=== PATIENT | male | born 1960 | race Caucasian/White ===

== ENCOUNTER 2017-08-11 14:15 | Inpatient (IN) | payer MEDICARE, BC ==
[~2017-08-11] VITALS: Ht 185.4 cm; Wt 87.8 kg
--- NOTE | ~2017-08-11 | OP ---
PATIENT NAME: BRITNEY LEMUS MEDICAL RECORD: [id number] :58 LOCATION:D.M2 D.2109 ADMISSION DATE:08/11/17 SURGEON: JAMEL KHAN MD DATE OF OPERATION: 08/12/2017 REFERRING PHYSICIANS: 1. Andrea Pitt MD 2. 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 OPERATION PERFORMED: Removal of infected vascular grafts from the right arm and ultrasound-guided cannulation of the left internal jugular/brachial cephalic vein with venography followed by ultrasound-guided access of the right internal jugular vein with venography and then insertion of a HemoSplit 19 cm long HemoSplit tunneled dialysis catheter, also removal of a tunneled dialysis catheter from the left femoral vein. SURGEON: Jamel Khan MD ANESTHESIA: General per PROPOSAL MANAGER and LMA. PREOPERATIVE NOTE: Mr. Lemus is a 57-year-old white male patient who has been on dialysis, peritoneal and hemo for about 15 or 16 years. He has had numerous infectious complications of his peritoneal dialysis with infected catheters and has had numerous AV accesses which thrombosed and which were infected both fistulas and AV grafts. He has even had osteomyelitis in his spine, which I think was with a gram-negative organism. He has had MRSA, but his infections have not all been staph. He was recently hospitalized at [facility] with septic state and had a femoral dialysis catheter inserted on the right. He has a history of deep vein thrombosis and even has an IVC filter on the right by the way and he had a catheter placed in his left groin and his most recent AV graft in the right arm was thrombosed. I saw him in my office yesterday and examined him, and looked at the graft in the right arm. There was a small area of "scab," which I easily wiped away with a culturette and then inserted the culturette easily into the body of the graft for a distance of 6 or 8 cm both distally and proximally. Purulent material was present. There was no bleeding, thanks hekell. The culture was sent to the hospital along with the patient whom I had admitted and I planned to bring him back to the operating room here today to remove the infected segment of his AV graft and to hopefully remove his femoral catheter and place a catheter in his upper torso. The patient is chronically on heparin, but that was discontinued on admission OPERATIVE REPORT [id number] BRITNEY LEMUS and he was started on low molecular weight heparin. At some point very soon, need to go back on his Coumadin anticoagulation. My plan is to hopefully get secure access for dialysis via an upper tunneled dialysis catheter and treat his graft infection and when thought to be clear of infection in probably 6 to 8 weeks, bring him back again to the operating room to implant an HeRO graft. DESCRIPTION OF PROCEDURE: With patient under anesthesia, he was prepped and draped in a sterile manner. I used ultrasound to image the left internal jugular vein, which appeared to be thrombosed, but deep to it and medial, there was a very large vein, which may be the internal jugular vein proximally or may actually have been the brachiocephalic vein. I was able to access it with micropuncture technique and injected contrast, which demonstrated patency of that vein all the way to the right atrium, but there were stenoses and defects which I thought would make it difficult if not dangerous to insert a HeRO outflow device along that course. I then went to the right side of the neck and with ultrasound identified the proximal internal jugular vein, which was small and somewhat sclerotic, but still patent at that level just above the clavicular head. I was able to cannulate it with a needle and guidewire under ultrasound guidance and advanced the guidewire fairly easily into the superior vena cava. A micropuncture catheter was inserted over the wire and subsequent to that a 7-German introducer was inserted. Contrast injection reveals a stenotic, but patent right brachiocephalic vein and a more highly stenotic, but patent internal jugular vein. The superior vena cava seems to be wide open without any stenoses or abnormalities. I then chose a 19 cm HemoSplit and went on to insert dilators over guidewire through the cervical incision there on the right at the base of the neck and lastly a peel-away introducer. I brought the new HemoSplit through an infraclavicular entry stab wound in the subcutaneous tunnel and inserted it through the peel-away introducer as it was removed under fluoroscopy. The catheter tips were positioned appropriately in the right atrium. Both lumens of the catheter were accessed and aspirated, free return of blood confirmed. They were then flushed with saline and then heparin-locked, clamped and capped. The catheter was sutured to the skin near the entry site with 2-0 Prolene. The cervical incision was closed with interrupted inverted 3-0 Vicryl subcuticular sutures and Dermabond glue. It was dressed with Maxorb Ag, Tegaderm and Cavilon skin prep. A chlorhexidine Biopatch was applied to the catheter at its entry site and further sterile dressings applied there. The left groin was then exposed and I removed the sutures from the HemoSplit catheter. I then found that the Dacron felt cuff was not adherent in the subcutaneous tunnel and I removed it by traction and then held pressure for prolonged period of time to obtain hemostasis. Subsequently, a sterile dressing was applied there. The right arm was then finally exposed and I excised the skin over the area of graft perforation and then extended the incision proximally and distally over the graft up almost to the deltopectoral groove and distally almost to the arterial anastomosis. The infected graft was dissected from the surrounding structures with electrocautery and it was transected proximal and distal ends without exposing or removing the arterial anastomosis or the proximal venous anastomosis. The wound was irrigated with Ancef/gentamicin solution and infiltrated with 0.25% Marcaine and lidocaine with epinephrine. Hemostasis was obtained with suture ligatures of subcutaneous collateral veins with 3-0 Vicryl and additional extensive use of electrocautery. I applied a wound VAC dressing with black foam and set the wound VAC device for continuous negative 125 suction. I have ordered that it be changed 3 times a week and I have asked for OPERATIVE REPORT [id number] BRITNEY LEMUS wound care consultation from our wound nurse specialist. PLAN: Antibiotic treatment as per Dr. Schilling. I think the patient should stay in the hospital, certainly over the weekend and probably through the first portion of next week. Hopefully, he will be able to go home next week. He does home dialysis, there is no reason he could not do home dialysis with his new catheter. After adequate antibiotic treatment when we think that he was free of colonization with pathogens such as MRSA, he can be returned to the operating room for a HeRO graft implantation I believe that I will likely prefer to place a HeRO graft in the left upper extremity and simply bring the venous outflow catheter around anteriorly to place the HeRO outflow device via the right internal jugular where I have today placed the tunneled catheter. Blood loss during the procedure was about 50 cc and was unreplaced. All sponges, instruments and needles were accounted for. No drain was used. There was no surgical specimen, but I did send the tip of the femoral catheter for culture and I swabbed the excised graft intraluminal contents for culture and sensitivity and stat Gram stain and also sent several 3 inch segments of the PTFE graft for culture. TRANSINT:[id number] Voice Confirmation ID: [id number] DOCUMENT ID: [id number] JAMEL KHAN MD at 1134 CC: JONES PENNINGTON MD, ANDREA PITT MD and Janette [id number] DICTATION DATE: 08/12/171812 SNUFF CONTAINER INSPECTOR: 08/13/17 0005 ADM IN [facility] [address] [place] [address]
[~2017-08-11 14:15] MED LIST: COUMADIN3 MG PO; COUMADIN5 MG PO; EPOGEN10000 U/ML SC; FERROUS SULFAT325 MG PO; HYDRALAZINE HCL25 MG PO; HYDROCODONE-APA1 TAB PO; LOTRISONE CREAM45 GM TOPICAL; NEPHRO-VITE RX1 TAB PO; NEURONTIN 300300 MG PO; PACERONE200 MG PO; PRINIVIL20 MG PO; PROTONIX20 MG PO; RENVELA0.8 GM PO; ROCALTROL0.25 MCG PO; SYNTHROID150 MCG PO; TUMS500 MG PO; VANCOMYCIN 1 GM/1 G1 IV
[2017-08-11] MEDS ORDERED: NORVASC5 MG PO (14:42)
[2017-08-11] MEDS ORDERED: NEURONTIN 300300 MG PO (14:42)
[2017-08-11] MEDS ORDERED: ROBAXIN-750750 MG PO (14:43)
[2017-08-11] MEDS ORDERED: RENVELA800 MG PO (14:44)
[2017-08-11] MEDS ORDERED: RESTASIS EYE DR30 EA EACH EYE (14:44)
[2017-08-11 14:45] VITALS: BP 145/74
[2017-08-11 15:20] LABS: BASOPHILS 0.6 % (0-2); EOSINOPHILS 11.3 % (0-7); HEMATOCRIT 30.8 % (42.0-54.0); HEMOGLOBIN 9.9 g/dL (13.5-17.5); IMMATURE GRANULOCYTES 0.4 % (0-5); LYMPHOCYTES 24.6 % (15-50); MCHC 32.1 g/dL (31.0-37.0); MCV 102.7 fL (80.0-100.0); NEUTROPHILS 54.1 % (40-80); PLATELET COUNT 163 10x3/uL (130-400); RDW 13.7 % (11.5-14.5); WBC 5.2 10x3/uL (4.8-10.8)
[2017-08-11 15:39] LABS: APTT 37.1 SECONDS (22.8-39.4); INR 1.24 (0.85-1.17); PROTIME 15.2 SECONDS (11.6-15.0)
[2017-08-11 15:41] LABS: ANION GAP 20.9 mmol/L (8-16); CARBON DIOXIDE 23.6 mmol/L (21.0-32.0); CREATININE - SERUM 12.3 mg/dL (0.6-1.3); POTASSIUM - SERUM 4.5 mmol/L (3.5-5.1)
[2017-08-11 21:37] VITALS: BP 153/83
[2017-08-12 01:49] VITALS: BP 135/55
[2017-08-12 05:32] LABS: BASOPHILS 0.6 % (0-2); EOSINOPHILS 14.2 % (0-7); HEMATOCRIT 28.8 % (42.0-54.0); HEMOGLOBIN 9.2 g/dL (13.5-17.5); IMMATURE GRANULOCYTES 0.4 % (0-5); LYMPHOCYTES 24.5 % (15-50); MCH 32.5 pg (26.0-34.0); MCHC 31.9 g/dL (31.0-37.0); MCV 101.8 fL (80.0-100.0); MEAN PLATELET VOLUME 10.5 fL (7.4-10.4); MONOCYTES 12.3 % (2-11); PLATELET COUNT 177 10x3/uL (130-400); RBC 2.83 10x6/uL (4.20-6.10); RDW 13.5 % (11.5-14.5); WBC 4.7 10x3/uL (4.8-10.8)
[2017-08-12 05:36] VITALS: BP 163/70
[2017-08-12 06:00] LABS: ALBUMIN 2.7 g/dL (3.4-5.0); ANION GAP 14.9 mmol/L (8-16); BILIRUBIN - TOTAL 0.4 mg/dL (0.2-1.3); CALCIUM 8.6 mg/dL (8.5-10.1); CARBON DIOXIDE 27.6 mmol/L (21.0-32.0); CREATININE - SERUM 13.8 mg/dL (0.6-1.3); PROTEIN - SERUM 6.2 g/dL (6.4-8.2)
[2017-08-12 06:16] LABS: POTASSIUM - SERUM 5.5 mmol/L (3.5-5.1)
[2017-08-12 08:23] VITALS: BP 157/67
[2017-08-12 08:44] LABS: APTT 37.8 SECONDS (22.8-39.4); INR 1.29 (0.85-1.17); PROTIME 15.6 SECONDS (11.6-15.0)
[2017-08-12 10:28] VITALS: Ht 185.4 cm; Wt 87.8 kg
[2017-08-12 12:14] VITALS: BP 165/74
[2017-08-13 05:01] LABS: BASOPHILS 0.5 % (0-2); EOSINOPHILS 10.6 % (0-7); HEMATOCRIT 26.9 % (42.0-54.0); HEMOGLOBIN 8.6 g/dL (13.5-17.5); IMMATURE GRANULOCYTES 0.2 % (0-5); LYMPHOCYTES 10.4 % (15-50); MCH 32.8 pg (26.0-34.0); MCV 102.7 fL (80.0-100.0); MEAN PLATELET VOLUME 10.6 fL (7.4-10.4); MONOCYTES 10.2 % (2-11); NEUTROPHILS 68.1 % (40-80); PLATELET COUNT 167 10x3/uL (130-400); RBC 2.62 10x6/uL (4.20-6.10); RDW 13.8 % (11.5-14.5); WBC 5.7 10x3/uL (4.8-10.8)
[2017-08-13 05:03] LABS: ALBUMIN 2.7 g/dL (3.4-5.0); ANION GAP 13.4 mmol/L (8-16); BILIRUBIN - TOTAL 0.53 mg/dL (0.2-1.3); CALCIUM 8.6 mg/dL (8.5-10.1); CARBON DIOXIDE 28.5 mmol/L (21.0-32.0); PHOSPHOROUS 5.9 mg/dL (2.5-4.9); POTASSIUM - SERUM 4.9 mmol/L (3.5-5.1); PROTEIN - SERUM 5.9 g/dL (6.4-8.2)
[2017-08-13 05:04] LABS: CREATININE - SERUM 9.4 mg/dL (0.6-1.3)
[2017-08-13 05:38] LABS: INR 0.77 (0.85-1.17); PROTIME 10.4 SECONDS (11.6-15.0)
[2017-08-13 06:36] VITALS: BP 167/69
[2017-08-13 09:09] VITALS: BP 147/70
[2017-08-13 12:15] VITALS: BP 154/63
[2017-08-13 15:58] VITALS: BP 157/64
[2017-08-13 20:26] VITALS: BP 142/67
[2017-08-14 03:34] VITALS: BP 157/58
[2017-08-14 05:27] LABS: BASOPHILS 0.8 % (0-2); EOSINOPHILS 17.4 % (0-7); HEMATOCRIT 23.8 % (42.0-54.0); HEMOGLOBIN 7.6 g/dL (13.5-17.5); LYMPHOCYTES 20.8 % (15-50); MCH 32.2 pg (26.0-34.0); MCHC 31.9 g/dL (31.0-37.0); MCV 100.8 fL (80.0-100.0); MEAN PLATELET VOLUME 9.9 fL (7.4-10.4); MONOCYTES 12.8 % (2-11); NEUTROPHILS 48.2 % (40-80); PLATELET COUNT 139 10x3/uL (130-400); RBC 2.36 10x6/uL (4.20-6.10); RDW 13.6 % (11.5-14.5)
[2017-08-14 05:29] LABS: WBC 3.8 10x3/uL (4.8-10.8)
[2017-08-14 05:57] LABS: ALBUMIN 2.5 g/dL (3.4-5.0); ANION GAP 13.3 mmol/L (8-16); BILIRUBIN - TOTAL 0.73 mg/dL (0.2-1.3); CALCIUM 8.7 mg/dL (8.5-10.1); PHOSPHOROUS 6.6 mg/dL (2.5-4.9); POTASSIUM - SERUM 4.3 mmol/L (3.5-5.1); PROTEIN - SERUM 5.8 g/dL (6.4-8.2); VANCOMYCIN - TROUGH 21.4 ug/mL (10.0-20.0)
[2017-08-14 06:00] LABS: CREATININE - SERUM 12.2 mg/dL (0.6-1.3)
[2017-08-14 07:00] VITALS: BP 155/69
[2017-08-14 12:48] VITALS: BP 130/79
[2017-08-14 13:59] LABS: BASOPHILS 0.7 % (0-2); EOSINOPHILS 18.1 % (0-7); HEMATOCRIT 24.4 % (42.0-54.0); HEMOGLOBIN 7.8 g/dL (13.5-17.5); IMMATURE GRANULOCYTES 0.2 % (0-5); LYMPHOCYTES 19.1 % (15-50); MCH 32.2 pg (26.0-34.0); MCV 100.8 fL (80.0-100.0); MEAN PLATELET VOLUME 9.8 fL (7.4-10.4); NEUTROPHILS 50.9 % (40-80); PLATELET COUNT 150 10x3/uL (130-400); RBC 2.42 10x6/uL (4.20-6.10); RDW 13.5 % (11.5-14.5); WBC 4.1 10x3/uL (4.8-10.8)
[2017-08-14 16:00] VITALS: BP 171/76
[2017-08-14 21:41] VITALS: BP 157/42
[2017-08-15 01:10] VITALS: BP 157/67
[2017-08-15 04:58] VITALS: BP 180/62
[2017-08-15 08:14] VITALS: BP 173/73
[2017-08-15 16:13] VITALS: BP 148/65
[2017-08-15 17:33] LABS: BASOPHILS 0.5 % (0-2); EOSINOPHILS 15.2 % (0-7); HEMOGLOBIN 7.8 g/dL (13.5-17.5); LYMPHOCYTES 18.5 % (15-50); MCH 32.8 pg (26.0-34.0); MCHC 32.5 g/dL (31.0-37.0); MCV 100.8 fL (80.0-100.0); MEAN PLATELET VOLUME 9.7 fL (7.4-10.4); MONOCYTES 11.4 % (2-11); NEUTROPHILS 54.4 % (40-80); PLATELET COUNT 145 10x3/uL (130-400); RBC 2.38 10x6/uL (4.20-6.10); RDW 13.4 % (11.5-14.5)
[2017-08-15 17:51] LABS: ALBUMIN 2.6 g/dL (3.4-5.0); ANION GAP 13.7 mmol/L (8-16); BILIRUBIN - TOTAL 0.5 mg/dL (0.2-1.3); CALCIUM 8.4 mg/dL (8.5-10.1); CARBON DIOXIDE 27.1 mmol/L (21.0-32.0); INR 1.52 (0.85-1.17); POTASSIUM - SERUM 3.8 mmol/L (3.5-5.1); PROTEIN - SERUM 6.1 g/dL (6.4-8.2); PROTIME 17.8 SECONDS (11.6-15.0); VANCOMYCIN - TROUGH 15.6 ug/mL (10.0-20.0)
[2017-08-15 20:00] VITALS: BP 166/83
[2017-08-16 04:00] VITALS: BP 155/40
[2017-08-16 06:30] LABS: BASOPHILS 0.6 % (0-2); EOSINOPHILS 16.4 % (0-7); IMMATURE GRANULOCYTES 0.6 % (0-5); LYMPHOCYTES 24.2 % (15-50); MCH 31.8 pg (26.0-34.0); MCHC 32.5 g/dL (31.0-37.0); MONOCYTES 14.3 % (2-11); NEUTROPHILS 43.9 % (40-80); PLATELET COUNT 152 10x3/uL (130-400); RDW 15.4 % (11.5-14.5); WBC 3.4 10x3/uL (4.8-10.8)
[2017-08-16 06:40] LABS: HEMATOCRIT 28.9 % (42.0-54.0); HEMOGLOBIN 9.4 g/dL (13.5-17.5); MCV 97.6 fL (80.0-100.0); RBC 2.96 10x6/uL (4.20-6.10)
[2017-08-16 07:01] LABS: ALBUMIN 2.6 g/dL (3.4-5.0); ANION GAP 12.5 mmol/L (8-16); BILIRUBIN - TOTAL 0.5 mg/dL (0.2-1.3); CALCIUM 8.7 mg/dL (8.5-10.1); CARBON DIOXIDE 29.5 mmol/L (21.0-32.0); CREATININE - SERUM 9.5 mg/dL (0.6-1.3); PROTEIN - SERUM 6.1 g/dL (6.4-8.2)
[2017-08-16 09:12] VITALS: BP 128/48
[2017-08-16] MEDS ORDERED: RIFADIN300 MG PO (10:05)
[2017-08-16] MEDS ORDERED: PLAVIX75 MG PO (10:06)
[2017-08-16] MEDS ORDERED: VANCOMYCIN 1 GM/1 G1 IV (10:09)
[2017-08-16] MEDS ORDERED: ELIQUIS2.5 MG PO (10:18)
[2017-08-16 12:10] VITALS: BP 139/74
[2017-08-17 10:20] LABS: ACLA - IGG AB <9 GPL U/mL (0-14); ACLA - IGM AB <9 MPL U/mL (0-12)
[2017-08-18 08:21] LABS: ANTITHROMBIN III ACTIVITY 86 % (75-135)
[2017-08-18 14:28] LABS: PROTEIN S - FREE 53 % (57-157); PROTEIN S - FUNCTIONAL 53 % (63-140); PROTEIN S - TOTAL 84 % (60-150)
[2017-08-19 04:15] LABS: HEXAGONAL PHASE PHOS 9 sec (0-11); LUPUS - INTERPRETATION Comment: (()); LUPUS - THROMBIN TIME 20.3 sec (0.0-23.0); LUPUS - dRVVT 58.8 sec (0.0-47.0); PTT-LA INCUB MIX 54.6 sec (0.0-48.9); PTT-LA MIX 46.1 sec (0.0-48.9)
[2017-08-19 12:16] LABS: PROTEIN C - ANTIGEN 61 % (60-150); PROTEIN C - FUNCTIONAL 63 % (73-180)
== END 2017-08-16 18:55 | disposition home health service (06) | DRG 252 ==
LOC: D.M2 14:15
PROVIDERS: Internal Medicine Nephrology; Student in an Organized Health Care Education/Training Program; Surgery
PROC: 02HV33Z Insertion of Infusion Device into Superior Vena Cava, Percutaneous Approach (ICD-10-PCS; 2017-08-12)
PROC: B548ZZA Ultrasonography of Superior Vena Cava, Guidance (ICD-10-PCS; 2017-08-12)
PROC: B5151ZZ Fluoroscopy of Bilateral Jugular Veins using Low Osmolar Contrast (ICD-10-PCS; 2017-08-12)
PROC: B51N1ZZ Fluoroscopy of Left Upper Extremity Veins using Low Osmolar Contrast (ICD-10-PCS; 2017-08-12)
PROC: B5181ZA Fluoroscopy of Superior Vena Cava using Low Osmolar Contrast, Guidance (ICD-10-PCS; 2017-08-12)
PROC: 5A1D70Z Performance of Urinary Filtration, Intermittent, Less than 6 Hours Per Day (ICD-10-PCS; 2017-08-12)
PROC: 05PY0KZ Removal of Nonautologous Tissue Substitute from Upper Vein, Open Approach (ICD-10-PCS; principal; 2017-08-12 15:00)
PROC: 04P Lower Arteries, Removal (ICD-10-PCS; 2017-08-12 15:00)
PROC: 0JHH3XZ Insertion of Tunneled Vascular Access Device into Left Lower Arm Subcutaneous Tissue and Fascia, Percutaneous Approach (ICD-10-PCS; 2017-08-12 15:00)
DX: T82.7XXA Infection and inflammatory reaction due to other cardiac and vascular devices, implants and grafts, initial encounter (principal); N18.6 End stage renal disease; A41.01 Sepsis due to Methicillin susceptible Staphylococcus aureus; I13.2 Hypertensive heart and chronic kidney disease with heart failure and with stage 5 chronic kidney disease, or end stage renal disease; D68.59 Other primary thrombophilia; I50.9 Heart failure, unspecified; Z99.2 Dependence on renal dialysis; I25.10 Atherosclerotic heart disease of native coronary artery without angina pectoris; E03.9 Hypothyroidism, unspecified; D64.9 Anemia, unspecified; Z87.891 Personal history of nicotine dependence

== ENCOUNTER 2017-10-25 06:28 | Day surgery (SDC) | payer MEDICARE, BC ==
[~2017-10-25] VITALS: Ht 185.4 cm; Wt 88.6 kg
--- NOTE | ~2017-10-25 | OP ---
PATIENT NAME: BRITNEY LEMUS MEDICAL RECORD: [id number] :58 [facility] ADMISSION DATE: SURGEON: JAMEL KHAN MD DATE OF OPERATION: 10/25/2017 REFERRED BY: Néstor Bautista MD PREOPERATIVE DIAGNOSIS: End-stage renal disease, on hemodialysis, with history of multiple prior dialysis access failures due to thrombophilia and due to recurrent staphylococcal infections. POSTOPERATIVE DIAGNOSIS: End-stage renal disease, on hemodialysis, with history of multiple prior dialysis access failures due to thrombophilia and due to recurrent staphylococcal infections. OPERATION PERFORMED TODAY: Implantation of a HeRO AV graft, removal of tunneled dialysis catheter from the right internal jugular vein, and performance of a vena cavogram and balloon angioplasty of strictured right internal jugular and brachiocephalic vein with PTFE portion in the left upper extremity. SURGEON: Jamel Khan MD PREOP NOTE: Mr. Lemus is a very nice 57-year-old white male patient from [place], [place]. He has end-stage renal disease and is doing home dialysis presently with a right IJ tunneled dialysis catheter. He needs long-term access. He has had multiple prior grafts and fistulas, which failed due to thrombophilia and recurrent staphylococcal infections. He is at present found to be free of staphylococcal infection or significant colonization and is brought to the operating room this time to implant a HeRO. With the patient under general anesthesia in supine position, he was prepped and draped in sterile manner. The tunneled dialysis catheter in the right internal jugular vein was removed under fluoroscopy over guidewire. The guidewire was advanced into the inferior vena cava and a wire catheter exchange was done so that an Amplatz wire was placed in the inferior vena cava. A 7-Divehi introducer was placed in the right IJ over that wire. Contrast injection was then performed for superior vena cavogram. This revealed a patent superior vena cava, but a strictured and nearly 100% occluded right internal jugular and brachiocephalic vein. These were then dilated with an 8-mm angioplasty balloon with full effacement with relatively little in the way of pressure with a significant increase in diameter of the vein with repeated contrast injection. Additional dilators were then passed under fluoroscopy over the wire and then a peel-away introducer sheath. The HeRO outflow device was inserted through that and its tip placed in the right atrium and the peel-away sheath removed. The HeRO outflow device was flushed then and aspirated and contrast injection revealed satisfactory positioning. It was then again flushed with dilute heparin and saline solution and clamped. An incision of about an inch in length had been made there at that site in the right neck. I made an incision then at the left deltopectoral region and brought the HeRO device through a subcutaneous tunnel from right to left under fluoroscopy, leaving its tip deep in the right atrium. I then took an Acuseal 6-mm diameter graft, and through an incision at the axilla, anastomosed it end-to-side to the axillary artery under local regional heparin anticoagulation. I placed the Acuseal in a candycane-shaped tunnel, bringing it back up to the deltopectoral area. I had tried attaching it directly to the HeRO outflow device using a HeRO revision kit, but found OPERATIVE REPORT [id number] BRITNEY LEMUS actually the catheter was pulled back and nearly pulled out of the right atrium entirely, so it was necessary for me to redo that. I chose a new piece of PTFE and performed an anastomosis end-to-end with running 6-0 Prolene, and then with a new revision adaptor, that was connected to the end of the repositioned HeRO outflow device. When all of this was completed and the occluding clamps and loops were released, excellent flow was established in the new HeRO and x-ray confirmed tip position in the right atrium was satisfactory. The wounds were all irrigated with Ancef and gentamicin solution repeatedly. They were closed with interrupted inverted 3-0 Vicryl and running intracuticular 4-0 Monocryl and Dermabond glue. They were dressed with Maxorb Ag, Tegaderm, and Cavilon skin prep. The patient had had an infected graft segment removed from the lateral right arm. The last time I operated on him, I did not remove the proximal segment, which extended up into the right deltopectoral groove where the PTFE had been anastomosed to the cephalic arch and had one or more stents placed in that area. I felt that it should be removed, though there was no evidence that it was infected at this point. I made an incision over it, dissected it free of the surrounding structures with electrocautery. I clamped and transected the proximal cephalic vein actually through a remaining old stent and I ligated this thrombosed vein with heavy Vicryl. The wound was then irrigated with Ancef and gentamicin solution. Hemostasis was obtained with electrocautery. The wound was closed with interrupted inverted 3-0 Vicryl, running intracuticular 4-0 Monocryl, and Dermabond glue. It was dressed in similar manner and the patient then, with a functioning HeRO graft, was awakened and taken to the recovery room. Blood loss during this procedure was insignificant and unreplaced. All sponges, instruments, and needles were accounted for. No drain was used. PLAN: The patient will need to be observed in the hospital overnight due to potential for bleeding and to make sure that his pain control is accurate, etc. We will need to feel confident that he can be successfully dialyzed through his new AV graft starting tomorrow or and using strict Acuseal protocol for a minimum of 2 weeks. It is possible that he might be able to be discharged and then simply return to the dialysis center in [place] for dialysis and for teaching on and Tuesday of this week. Meanwhile, he is to continue all of the same medications, but I have advised that we not resume Eliquis until Tuesday of next week. I will plan to see him in my office next week and he will have an appointment made for that. 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 TRANSINT:[id number] Voice Confirmation ID: [id number] DOCUMENT ID: [id number] JAMEL KHAN MD at 2012 CC: NÉSTOR BAUTISTA [id number] DICTATION DATE: 10/25/17 1618 PROFILE STITCHING MACHINE OPERATOR: 10/25/17 1713 [facility] 10/26/17 [place] [id number] [place] [id number]
[~2017-10-25 06:28] MED LIST changes: +ELIQUIS2.5 MG PO; +NORVASC5 MG PO; +PLAVIX75 MG PO; +RENVELA800 MG PO; +RESTASIS EYE DR30 EA EACH EYE; +RIFADIN300 MG PO; +ROBAXIN-750750 MG PO
[2017-10-25 07:18] LABS: BASOPHILS 0.3 % (0-2); EOSINOPHILS 8.9 % (0-7); HEMATOCRIT 33.7 % (42.0-54.0); HEMOGLOBIN 11.1 g/dL (13.5-17.5); IMMATURE GRANULOCYTES 0.3 % (0-5); LYMPHOCYTES 22.3 % (15-50); MCH 32.6 pg (26.0-34.0); MCHC 32.9 g/dL (31.0-37.0); MCV 98.8 fL (80.0-100.0); MEAN PLATELET VOLUME 9.9 fL (7.4-10.4); MONOCYTES 9.5 % (2-11); NEUTROPHILS 58.7 % (40-80); PLATELET COUNT 119 10x3/uL (130-400); RBC 3.41 10x6/uL (4.20-6.10); RDW 15.9 % (11.5-14.5); WBC 3.6 10x3/uL (4.8-10.8)
[2017-10-25 07:27] LABS: APTT 34.9 SECONDS (22.8-39.4); INR 1.07 (0.85-1.17); PROTIME 13.5 SECONDS (11.6-15.0)
[2017-10-25 07:35] LABS: ANION GAP 16.2 mmol/L (8-16); CALCIUM 9.4 mg/dL (8.5-10.1); CARBON DIOXIDE 23.5 mmol/L (21.0-32.0); CREATININE - SERUM 8.5 mg/dL (0.6-1.3); POTASSIUM - SERUM 3.7 mmol/L (3.5-5.1)
[2017-10-25] MEDS ORDERED: ROBAXIN-750750 MG PO (07:44)
[2017-10-25 07:55] VITALS: BMI 24.8
[2017-10-25 14:49] VITALS: BP 159/76
[2017-10-25] MEDS ORDERED: MINOCIN50 MG PO (16:22)
[2017-10-25] MEDS ORDERED: HYDROCODON-ACE1 EAC7 PO (16:24)
[2017-10-25 16:32] VITALS: Ht 185.4 cm; Wt 88.6 kg
[2017-10-26] VITALS: BP 140/60
[2017-10-26 04:00] VITALS: BP 149/54
[2017-10-26 07:49] VITALS: BP 151/50
== END 2017-10-26 13:06 | disposition home or self-care (01) ==
LOC: D.M2 06:28 → D.OPS 06:28 → D.M2 14:37 → D.OPS 10-26 13:06
PROVIDERS: Surgery
DX: N18.6 End stage renal disease (principal); Z99.2 Dependence on renal dialysis; Z86.19 Personal history of other infectious and parasitic diseases; D68.59 Other primary thrombophilia; I87.1 Compression of vein; Z01.812 Encounter for preprocedural laboratory examination

== ENCOUNTER 2017-10-31 16:40 | Inpatient (IN) | payer MEDICARE, BC ==
[~2017-10-31] VITALS: Ht 185.4 cm; Wt 85.6 kg
--- NOTE | ~2017-10-31 | OP ---
PATIENT NAME: BRITNEY LEMUS MEDICAL RECORD: [id number] :58 LOCATION:D. D.2140 ADMISSION DATE:11/01/17 SURGEON: JAMEL KHAN MD DATE OF OPERATION: 10/31/2017 REFERRING PHYSICIAN: Dr. Néstor Bautista. DIAGNOSES: End-stage renal disease and dependence on hemodialysis, systemic lupus erythematosus with history of lupus nephritis as etiology for renal failure, thrombophilia, probable lupus anticoagulant syndrome, and embolus to the left brachial artery occurring during percutaneous mechanical thrombolysis and angiography procedure earlier today at [facility]. PROCEDURE PERFORMED: Open fistulogram and left brachial arteriogram with selective catheterization and arteriography of the left radial artery and left ulnar artery and Francisco J balloon catheter embolectomy and infusion of TPA in the ulnar artery. SURGEON: Jamel Khan MD ANESTHESIA: General per MITER CUTTER PREOPERATIVE NOTE: Mr. Lemus is a 57-year-old white male patient from [place], [place], who is on home dialysis. He has had numerous problems with staphylococcal infections and graft thromboses. He is only about a week status postop implantation of a left upper extremity HeRO graft. He thrombosed that graft today, which was to have been the first day that he and his would access his HeRO graft at home. He came in to [facility] and I performed a fistulogram with mechanical thrombolysis and was able to recanalize and reopen the graft, but there was embolization to the brachial artery which I could not treat percutaneously there at [facility]. The patient was admitted to observation status here this afternoon and brought to the operating room now with a very cool and pallid left hand. There were no complaints of ischemic pain or at this time loss of function. The patient also has an area of ischemic necrosis developing ulceration over the newly implanted Acuseal graft in the left arm. DESCRIPTION OF PROCEDURE: Under anesthesia, the patient was prepped and draped in a sterile manner. The previous axillary incision was reopened and the brachial artery to Acuseal graft anastomosis clearly dissected and the artery controlled with Silastic loops. The patient was given 3000 units of heparin. After an adequate circulation time had elapsed, the artery was occluded and the Acuseal graft also occluded. A micropuncture technique was used to place a 4-Cay[place] Islander catheter in the Acuseal graft and I then performed a fistulogram which revealed good flow in the graft without evidence of any obstruction, kinks or any clear reason for the graft to have thrombosed. I then made an arteriotomy in the Acuseal just above the arterial anastomosis and through that passed a 4-Cay[place] Islander Francisco J embolectomy catheter under fluoroscopy and removed a large embolus from the brachial artery from just above its bifurcation. Contrast injection then revealed patency of the radial artery all the way into the hand, but the palmar arch was not complete and there was very little flow to the lateral aspect of the hand and there was nonvisualization of the ulnar artery. I was able to selectively catheterize the radial artery and also the brachial and the ulnar artery using an angled 0.035 Glidewire and angled glide catheter. OPERATIVE REPORT [id number] BRITNEY LEMUS I infused TPA into the ulnar artery infusing a total of 2 mg. The hardware was removed after the artery was flushed with heparinized saline. The arteriotomy and the graft was closed with a running 6-0 Prolene and then flow was restored via the brachial artery and flow in the fistula. The wound was irrigated with vancomycin solution. Hemostasis was adequate, though I did use Fibrillar along the arteriotomy. The wound was closed with interrupted inverted 3-0 Vicryl and running intracuticular 4-0 Monocryl and Dermabond glue. The patient did have some bleeding from subcutaneous veins during this closure and for that reason, I have given 10 mg of protamine intravenously and good hemostasis was achieved. There was good Doppler flow in the HeRO graft at that point and the left hand began to pink up very nicely on both the medial and lateral aspects. There was good pulsatile Doppler flow in the ulnar and radial arteries at the wrist. I then debrided a little of the scab on the site of ischemic necrosis and ulceration over the Acuseal graft, the underlying graft was not exposed. Although I did not remove all of the eschar, that wound was dressed with Bactroban. The other sites were all dressed with Maxorb Ag, Tegaderm and Cavilon skin prep. The patient was awakened and taken to the recovery room in stable condition. Blood loss during the operation was probably 100 mL. None was replaced. All sponges, instruments and needles were accounted for. No drain was used and no surgical specimen was submitted for histopathology. We will plan on keeping the patient on heparin drip for the next day or two. He will have dialysis here in the hospital and will need to be converted to inpatient status. I do not yet know whether he will require an open revision of his graft and excision of the area of ulceration during this hospitalization or not and for that reason, we will hold off on putting him a right back on his Eliquis. TRANSINT:[id number] Voice Confirmation ID: [id number] DOCUMENT ID: [id number] JAMEL KHAN MD at 2012 CC: NÉSTOR BAUTISTA [id number] DICTATION DATE: 11/01/17 012 PRE SCHOOL MANAGER: 11/01/17 0541 [facility] IN 11/02/17 [facility] [address] [place] [address]
[~2017-10-31 16:40] MED LIST changes: +HYDROCODON-ACE1 EAC7 PO; +MINOCIN50 MG PO
[2017-10-31 17:30] VITALS: BP 239/97
[2017-10-31 18:08] VITALS: BP 239/97; BMI 24.5
[2017-10-31 18:23] LABS: HEMATOCRIT 30.1 % (42.0-54.0); HEMOGLOBIN 9.9 g/dL (13.5-17.5); MCH 32.9 pg (26.0-34.0); MCHC 32.9 g/dL (31.0-37.0); PLATELET COUNT 108 10x3/uL (130-400); RBC 3.01 10x6/uL (4.20-6.10); RDW 15.2 % (11.5-14.5); WBC 5.6 10x3/uL (4.8-10.8)
[2017-10-31 19:00] VITALS: BP 198/54
[2017-10-31 19:26] LABS: CALCIUM 9.7 mg/dL (8.5-10.1)
[2017-10-31 19:45] LABS: EOSINOPHILS 4 % (0-7); LYMPHOCYTES 27 % (15-50); MONOCYTES 3 % (2-11); NEUTROPHILS 66 % (40-80); PLATELET ESTIMATE DECREASED
[2017-11-01] VITALS: BP 169/45
[2017-11-01 04:00] VITALS: BP 178/46
[2017-11-01 08:04] VITALS: BP 166/45
[2017-11-01 12:20] VITALS: BMI 27.3
[2017-11-01 15:06] VITALS: BP 162/53
[2017-11-02] VITALS: BP 181/71
[2017-11-02 04:00] VITALS: BP 152/64
[2017-11-02 07:23] LABS: BASOPHILS 0.4 % (0-2); EOSINOPHILS 14.2 % (0-7); HEMATOCRIT 26.2 % (42.0-54.0); HEMOGLOBIN 8.5 g/dL (13.5-17.5); IMMATURE GRANULOCYTES 0.2 % (0-5); MCH 32.4 pg (26.0-34.0); MCHC 32.4 g/dL (31.0-37.0); MEAN PLATELET VOLUME 10.7 fL (7.4-10.4); MONOCYTES 14.4 % (2-11); NEUTROPHILS 49.8 % (40-80); PLATELET COUNT 128 10x3/uL (130-400); RBC 2.62 10x6/uL (4.20-6.10); RDW 15.3 % (11.5-14.5); WBC 4.7 10x3/uL (4.8-10.8)
[2017-11-02 07:39] LABS: ANION GAP 17.9 mmol/L (8-16); CALCIUM 8.9 mg/dL (8.5-10.1); CREATININE - SERUM 10.1 mg/dL (0.6-1.3); PHOSPHOROUS 5.3 mg/dL (2.5-4.9); POTASSIUM - SERUM 3.9 mmol/L (3.5-5.1)
[2017-11-22 12:17] VITALS: Ht 185.4 cm; Wt 85.6 kg
== END 2017-11-02 13:55 | disposition home health service (06) | DRG 252 ==
LOC: OBSVTIME → UNDOADMOB 16:40 → D.M2 16:40 → D.OPS 16:40 → OBSVTIME 16:41 → D.M2 17:20 → D.OPS 11-01 16:40 → D.M2 11-02 13:55 → EDSTATUS 11-07 13:02
PROVIDERS: Internal Medicine Nephrology; Surgery
PROC: 03CA0ZZ Extirpation of Matter from Left Ulnar Artery, Open Approach (ICD-10-PCS; 2017-10-31)
PROC: B31J1ZZ Fluoroscopy of Left Upper Extremity Arteries using Low Osmolar Contrast (ICD-10-PCS; 2017-10-31)
PROC: 3E03317 Introduction of Other Thrombolytic into Peripheral Vein, Percutaneous Approach (ICD-10-PCS; 2017-10-31)
PROC: B51W1ZZ Fluoroscopy of Dialysis Shunt/Fistula using Low Osmolar Contrast (ICD-10-PCS; principal; 2017-10-31 21:30)
PROC: 5A1D70Z Performance of Urinary Filtration, Intermittent, Less than 6 Hours Per Day (ICD-10-PCS; 2017-11-01)
DX: T82.818A Embolism due to vascular prosthetic devices, implants and grafts, initial encounter (principal); N18.6 End stage renal disease; I96 Gangrene, not elsewhere classified; Y83.8 Other surgical procedures as the cause of abnormal reaction of the patient, or of later complication, without mention of misadventure at the time of the procedure; Z99.2 Dependence on renal dialysis; M32.14 Glomerular disease in systemic lupus erythematosus; M32.9 Systemic lupus erythematosus, unspecified; D63.1 Anemia in chronic kidney disease; E03.9 Hypothyroidism, unspecified; E83.39 Other disorders of phosphorus metabolism

== ENCOUNTER 2017-11-16 12:18 | Inpatient (IN) | payer MEDICARE, BC ==
[~2017-11-16] VITALS: Ht 182.9 cm; Wt 87.3 kg
--- NOTE | ~2017-11-16 | OP ---
PATIENT NAME: BRITNEY LEMUS MEDICAL RECORD: [id number] :58 LOCATION:D. D.2136 ADMISSION DATE:11/17/17 SURGEON: JAMEL KHAN MD DATE OF OPERATION: 11/16/2017 REFERRED BY: Dusty Bautista MD PREOPERATIVE DIAGNOSIS: Exposed infected bleeding HeRO AV graft, left arm. POSTOPERATIVE DIAGNOSIS: Exposed infected bleeding HeRO AV graft, left arm. OPERATION PERFORMED: Open revision of AV graft, left arm without thrombectomy with interposition of a jump graft of Acuseal and excision of skin and exposed infected graft. SURGEON: Jamel Khan MD ANESTHESIA: General per SCRAP CUTTER with LMA. PREOPERATIVE NOTE: Mr. Lemus is a 57-year-old white male patient with end-stage renal disease, on chronic hemodialysis now for some time. He has been plagued with multiple dialysis access failures and infections. I recently implanted a left upper extremity HeRO AV graft which crosses the midline and enters the central venous circulation via the right internal jugular. He has unfortunately suffered an area of ischemic necrosis of the skin overlying the Acuseal PTFE graft in the left upper arm. The eschar has and the patient has had significant bleeding requiring a pressure dressing. He is brought to the operating room now as an emergency. DESCRIPTION OF PROCEDURE: Under general anesthesia, the patient was prepped and draped in a sterile manner. When the dressing was removed from the left arm, fortunately there was no active bleeding from the exposed graft. I made an incision overlying the graft proximal and distal and exposed the underlying Acuseal graft and controlled with Silastic loops and vascular clamps as needed. I then extended the incision and ended up with an elliptical excision of the ulcer itself and exposed about 4 inches of the existing Acuseal graft and excised it. The graft was flushed proximally and distally with heparinized saline. I made a new lateral adjacent subcutaneous tunnel and prepared a new Acuseal jump graft. The arterial side was anastomosed end-to-end with running 6-0 Prolene and treated with BioGlue. The new graft was pulled through the subcutaneous tunnel and proximal and shortened and the proximal anastomosis done again with a running 6-0 Prolene. When completed, the occluding clamps were released and excellent flow was established in the graft. The wounds were irrigated thoroughly with antibiotic solution and closed with interrupted inverted 3-0 Vicryl and Dermabond glue. The wounds were dressed with Maxorb Ag, Tegaderm, and Cavilon skin prep. The patient was awakened and taken to the recovery room in stable condition. Blood loss during the procedure had been minimal and was unreplaced. All sponges, instruments, and needles were accounted for. No drain was used. No surgical specimen was submitted for histopathology, but I did submit the excised graft segment for culture and sensitivities. PLAN: I believe that this patient can be dialyzed with this graft. There is ample length of Acuseal PTFE which can be accessed remotely from the fresh OPERATIVE REPORT [id number] [facility]. TRANSINT:[id number] Voice Confirmation ID: [id number] DOCUMENT ID: [id number] JAMEL KHAN MD at 1241 CC: [id number] DICTATION DATE: 12/01/17 1349 SOLE LEATHER CUTTING MACHINE OPERATOR: 12/01/17 1610 DIS IN 11/18/17 [address] [place] [address]
[2017-11-16 12:46] LABS: BASOPHILS 0.2 % (0-2); EOSINOPHILS 13.4 % (0-7); HEMATOCRIT 27.3 % (42.0-54.0); HEMOGLOBIN 8.7 g/dL (13.5-17.5); LYMPHOCYTES 23.1 % (15-50); MCHC 31.9 g/dL (31.0-37.0); MCV 100.4 fL (80.0-100.0); MEAN PLATELET VOLUME 9.6 fL (7.4-10.4); NEUTROPHILS 53.3 % (40-80); PLATELET COUNT 124 10x3/uL (130-400); RBC 2.72 10x6/uL (4.20-6.10); RDW 16.3 % (11.5-14.5); WBC 4.4 10x3/uL (4.8-10.8)
[2017-11-16 13:04] LABS: ANION GAP 19.2 mmol/L (8-16); CALCIUM 9.2 mg/dL (8.5-10.1); CARBON DIOXIDE 23.6 mmol/L (21.0-32.0); POTASSIUM - SERUM 3.8 mmol/L (3.5-5.1)
[2017-11-16 13:17] LABS: INR 1.23 (0.85-1.17); PROTIME 15.1 SECONDS (11.6-15.0)
[2017-11-16 13:18] LABS: APTT 39.5 SECONDS (22.8-39.4)
[2017-11-16 13:31] VITALS: BP 169/72
[2017-11-17 05:58] VITALS: BP 202/72
[2017-11-17 06:18] LABS: INR 1.23 (0.85-1.17)
[2017-11-17 06:20] LABS: APTT 68.1 SECONDS (22.8-39.4)
[2017-11-17 06:24] LABS: ANION GAP 20.8 mmol/L (8-16); CALCIUM 8.7 mg/dL (8.5-10.1); CARBON DIOXIDE 22.8 mmol/L (21.0-32.0); CREATININE - SERUM 11.9 mg/dL (0.6-1.3)
[2017-11-17 06:25] LABS: BASOPHILS 0.5 % (0-2); EOSINOPHILS 15.2 % (0-7); HEMATOCRIT 25.3 % (42.0-54.0); HEMOGLOBIN 7.9 g/dL (13.5-17.5); LYMPHOCYTES 28.5 % (15-50); MCH 31.7 pg (26.0-34.0); MCHC 31.2 g/dL (31.0-37.0); MCV 101.6 fL (80.0-100.0); MEAN PLATELET VOLUME 9.6 fL (7.4-10.4); MONOCYTES 6.8 % (2-11); PLATELET COUNT 118 10x3/uL (130-400); RBC 2.49 10x6/uL (4.20-6.10); RDW 16.2 % (11.5-14.5); WBC 3.7 10x3/uL (4.8-10.8)
[2017-11-17 06:26] LABS: POTASSIUM - SERUM 4.6 mmol/L (3.5-5.1)
[2017-11-17 07:49] VITALS: BP 144/66
[2017-11-17 10:57] VITALS: BP 151/68
[2017-11-17 15:11] VITALS: BP 143/73
[2017-11-17 21:42] VITALS: BP 160/71
[2017-11-18 02:01] VITALS: BP 152/68
[2017-11-18 05:32] VITALS: BP 165/80
[2017-11-18 07:40] VITALS: BP 166/35
[2017-11-18 11:52] VITALS: BP 160/55
[2017-11-18 13:36] VITALS: Ht 182.9 cm; Wt 87.3 kg
[2017-11-18 15:24] VITALS: BP 162/58
[2017-11-18] MEDS ORDERED: PLAVIX75 MG PO (16:10)
== END 2017-11-18 18:50 | disposition home or self-care (01) | DRG 252 ==
LOC: D.OPS 12:18 → D.SDCHOLD 12:20 → D.OPS 14:00 → D.M2 15:10 → D.OPS 11-17 10:18 → D.M2 11-17 10:19
PROVIDERS: Internal Medicine; Surgery
PROC: 03WY0JZ Revision of Synthetic Substitute in Upper Artery, Open Approach (ICD-10-PCS; principal; 2017-11-16 14:00)
PROC: 5A1D70Z Performance of Urinary Filtration, Intermittent, Less than 6 Hours Per Day (ICD-10-PCS; 2017-11-17)
DX: T82.838A Hemorrhage due to vascular prosthetic devices, implants and grafts, initial encounter (principal); N18.6 End stage renal disease; I12.0 Hypertensive chronic kidney disease with stage 5 chronic kidney disease or end stage renal disease; I87.1 Compression of vein; Y83.8 Other surgical procedures as the cause of abnormal reaction of the patient, or of later complication, without mention of misadventure at the time of the procedure; T82.7XXA Infection and inflammatory reaction due to other cardiac and vascular devices, implants and grafts, initial encounter; Z99.2 Dependence on renal dialysis; D64.9 Anemia, unspecified; M32.9 Systemic lupus erythematosus, unspecified

== ENCOUNTER 2018-02-27 09:40 | Inpatient (IN) | payer MEDICARE, BC ==
[~2018-02-27] VITALS: Ht 185.4 cm; Wt 86.4 kg
--- NOTE | ~2018-02-27 | OP ---
PATIENT NAME: BRITNEY LEMUS MEDICAL RECORD: [id number] :58 LOCATION:D.M2 D.2133 ADMISSION DATE:02/27/18 SURGEON: JAMEL KHAN MD DATE OF OPERATION: 02/28/2018 REFERRING PHYSICIAN: Dr. Haines. PREDIAGNOSES: Thrombosed left upper extremity HeRO AV graft with pseudoaneurysm. POSTOPERATIVE DIAGNOSES: Thrombosed left upper extremity HeRO AV graft with pseudoaneurysm with arterial juxta-anastomotic and arterial anastomotic stenosis. OPERATION PERFORMED: Open revision with thrombectomy followed by percutaneous fistulogram and balloon angioplasty of arterial anastomotic stenosis and JA stenosis and selective brachial artery arteriogram. SURGEON: Jamel Khan MD ANESTHESIA: General with LMA per HEAD OF RESEARCH & INSIGHTS. PREOPERATIVE NOTE: Mr. Lemus is a 57-year-old white male patient with lupus who is a severely thrombophilic and has had numerous failed dialysis accesses. He has for the last while been dialyzing successfully with a left upper extremity AV graft. He has though in the past had numerous graft and access infections and he has had an infection of this particular HeRO graft which was treated by excision of an infected segment and implantation of a jump graft and prolonged antibiotic therapy. He has developed a small pseudoaneurysm in the body of the graft that what I believe is a suture line at the junction of 2 Acuseal PTFE grafts. That lesion or PA is fairly stable and does not appear to be inflamed or tender or show any other signs of infection. He has been admitted to the hospital now though with a thrombosis of his AV graft. He has been on Plavix. The patient is waiting to have his graft opened so that he can have dialysis. He has no other means of dialysis. Under general anesthesia via LMA per HEAD OF RESEARCH & INSIGHTS, the patient was placed in supine position, prepped and draped in a sterile manner. I made an incision extending above and below the area of aneurysm and exposed the underlying graft. I opened the pseudoaneurysm and debrided the content and noted that it did originate from an area of suture breakdown at the graft end-to-end anastomosis. I took this all completely apart and cleaned and removed any granulation tissue and old clot. I then used a Francisco J embolectomy catheter to remove thrombus from the venous outflow component and then heparin locked and clamped that end. I used the same Francisco J embolectomy catheter to remove thrombus from the arterial limb and body of the graft and found an arterial anastomotic stenosis, which would require dilation. The graft was flushed with heparinized saline and the previous end-to-end anastomosis was redone with running 6-0 Prolene. The patient was systemically heparinized with 5000 units of heparin. I then accessed the graft with a micropuncture technique and inserted a 6-Jordanian introducer directed towards the arterial anastomosis. This was done in the arterial limb of the graft. Contrast injection was performed and digital subtraction angiography demonstrated really a total occlusion of the arterial OPERATIVE REPORT [id number] BRITNEY LEMUS anastomosis. I was though able then to fairly easily pass a 0.035 angled Glidewire proximally and then a glide catheter and performed a selective arteriogram, which revealed no abnormalities other than the stenosis there at the graft anastomosis. I dilated that with a 6 mm x 40 mm angioplasty balloon, which was held inflated with full effacement for 60 seconds before it was deflated and removed. Repeat contrast injection revealed some residual thrombus at the orifice of the graft artery anastomosis. This was subsequently removed under fluoroscopy with the Francisco J catheter and arterial inflow was restored. I used the Francisco J catheter through another 6-Jordanian introducer closer to the outflow near the shoulder. This was used to remove thrombus from the body of the graft and around the apex of the loop. When flow was restored and contrast injections with digital subtraction angiography revealed no other abnormalities of the graft, the 6-Jordanian ports were removed and hemostasis obtained with direct pressure and [id number] 4-0 Prolene sutures. The heparin was not reversed. The larger wound was irrigated and then infiltrated with 0.25% Marcaine plain. The wound was closed with a running intracuticular 4-0 Monocryl and 2 interrupted simple 4-0 Prolene sutures. Then, Dermabond glue was applied and that wound was dressed with Maxorb Ag, Tegaderm, and Cavilon skin prep. The two 6-Jordanian introducer insertion sites were dressed with Avitene Ultrafoam and Tegaderm with Cavilon skin prep. The graft was functioning nicely by Doppler and there was a palpable pulse though there was not much palpable thrill over the graft. The patient was awakened and taken to the recovery room in stable condition. Blood loss was between 1500 cc. None was replaced. All sponges, instruments and needles were accounted for. No drain was used and no surgical specimen was submitted for histopathology. As I said the patient's heparin was not reversed. I hope that the patient will be dialyzed this evening if that is not possible, then very first thing in the morning and I am going to start the patient this evening on Brilinta 180 mg daily, and have his first dose in the recovery room. I plan to stop his Plavix in future. TRANSINT:[id number] Voice Confirmation ID: [id number] DOCUMENT ID: [id number] JAMEL KHAN MD at 2018 CC: BERENICE HAINES MD [id number] DICTATION DATE: 02/28/182153 COUNTER ROLLER: 03/01/18 0523 ADM IN [id number] [place] [address]
--- NOTE | ~2018-02-27 | OP ---
PATIENT NAME: BRITNEY LEMUS MEDICAL RECORD: [id number] :58 LOCATION:D. D.2133 ADMISSION DATE:02/27/18 SURGEON: JAMEL KHAN MD DATE OF OPERATION: 03/01/2018 PREOPERATIVE DIAGNOSES: Thrombosed left upper extremity HeRO AV graft with no other means of dialysis. End-stage renal disease, dependence on hemodialysis. Systemic lupus erythematosus. Thrombophilia. Hyperkalemia. OPERATION PERFORMED: Ultrasound-guided access of the left common femoral vein, followed by performance of an inferior vena cavogram and then insertion of a 24-cm long Trialysis acute dialysis catheter. SURGEON: Jamel Khan MD ANESTHESIA: TIVA per INSTRUMENT CHECKER, plus local. PREOPERATIVE NOTE: Mr. Lemus's HeRO graft thrombosed evening after surgery before he could be dialyzed and he has not been dialyzed all week. He is increasingly hyperkalemic and really requires dialysis before anything else can be done. He has a limited number of choices for access. He is anticoagulated at present on Brilinta and Eliquis. Under TIVA, the patient was placed in supine position, was prepped and draped in a sterile manner. I noted that the HeRO graft from his left arm passes into the right internal jugular vein and that neither of the left internal jugular nor the right internal jugular were available for dialysis access. I then went to the groins and noted there was scar from prior catheter access in the left groin, none on the right. I examined him with ultrasound and found that the left common femoral vein was more normal and sharp and clean in appearance and I elected to first approach via the left side. With ultrasound guidance and micropuncture technique, I placed a needle and guidewire into the left common femoral vein. Over that, I placed a micropuncture catheter and then performed an inferior venacavogram using iodinated contrast and digital subtraction angiographic technique. The patient has a patent left external and common iliac vein and a persistent left-sided vena cava with communication to the right side only with a few veins and there was nonvisualization of a right-sided inferior vena cava at all. I went ahead and inserted a 24-cm Trialysis catheter over a guidewire placing its tip in the left-sided IVC or proximal iliac vein. Both lumens were accessed and aspirated and returned blood freely. They were then flushed with saline and heparin lock solution, clamped and capped. The catheter was sutured in place with a 2-0 Prolene and a sterile CVL dressing applied. The patient was then awakened and taken to the recovery room in stable condition. There was no blood loss during the procedure. All sponges, instruments, and needles were accounted for and no drain was used. PLAN: The patient will be returned to his room and hopefully can have dialysis this evening. I would like it to be repeated again tomorrow so that he will be optimally prepared to have surgery again on Tuesday when I will try again to reopen the HeRO graft. Until then, he is to remain on his p.o. Brilinta and Eliquis. There is no need for these to be discontinued. TRANSINT:[id number] Voice Confirmation ID: [id number] DOCUMENT ID: [id number] OPERATIVE REPORT [id number] BRITNEY LEMUS JAMES MD at 1244 CC: BERENICE HAINES MD [id number] DICTATION DATE: 03/01/182040 AIRCRAFT DELIVERY CHECKER: 03/02/18 0825 DIS IN 03/04/18 [facility] [address] [place] [address]
--- NOTE | ~2018-02-27 | OP ---
PATIENT NAME: BRITNEY LEMUS MEDICAL RECORD: [id number] :58 LOCATION:D. 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 OPERATION PERFORMED: Left upper extremity HeRO graft angiogram with percutaneous AngioJet thrombolysis and balloon angioplasty, stenoses of the body of the graft and of the arterial anastomosis and JA segment due to tenacious thrombus, also selective left brachial artery arteriogram. SURGEON: Jamel Khan MD ANESTHESIA: General with LMA per APPRENTICE MACHINIST OUTSIDE. REFERRING PHYSICIAN: Dr. Haines. PREOPERATIVE NOTE: Mr. Lemus is a 57-year-old white male patient, on chronic hemodialysis. He does home dialysis, believe he lives in [place]. He has had numerous dialysis access failures and dialysis access infections and has superior vena cava syndrome. He presently has an acute Trialysis dialysis catheter in the left common femoral vein, though he has been showing by angiography to have an aberrant left inferior vena cava. He has thrombosed his HeRO graft again actually just about the same day or the evening after his HeRO graft was recently reopened. Since that time, he had the temporary catheter placed and the angiogram demonstrating the left-sided IVC, and he has had dialysis, and he is returned to the OR now to try to fix his HeRO again. He is on Eliquis and Brilinta, and these medications have now been discontinued. DESCRIPTION OF PROCEDURE: Under general anesthesia with LMA per APPRENTICE MACHINIST OUTSIDE, the patient was placed in supine position and the left arm and chest prepped and draped in sterile manner. The access was examined with Duplex ultrasound and I noted that the arterial anastomosis appeared to be open with flow in it. There was some luminal narrowing in that area and some apparent plaque in the artery at that site. There was no flow basically in the rest of the graft. The graft was accessed near the arterial anastomosis, directed towards the venous outflow and a 0.035 angled Glidewire inserted and the 90 cm AngioJet device was inserted over the wire and the AngioJet would only reach about shelter down the venous outflow device in the chest. Thrombus within the graft and the venous outflow device was lysed with the AngioJet and the patient was heparinized with 5000 units of heparin systemically. Contrast injection revealed free flow of contrast through the entire venous outflow device into the right atrium without evidence of any residual clots there. There was some narrowing of the graft as it passed over the shoulder prior to attachment to the outflow device. The segment, which I had operated on the other day and removed a pseudoaneurysm and re-did an end-to-end anastomosis looked great without any step-off or irregularity. There was some mild narrowing of the graft in the apex of the curve. These areas were all dilated with a 7-mm angioplasty balloon and repeat contrast studies showed nice result. A second introducer was then inserted, directed towards the arterial anastomosis and a 0.035 Glidewire inserted and advanced across the stenosis into the brachial artery. A glide OPERATIVE REPORT [id number] BRITNEY LEMUS catheter was then passed into the brachial artery distal to the anastomosis and contrast injection revealed the brachial artery to be fully patent and the radial artery to be patent all the way into the hand. The ulnar artery is occluded at its origin from the brachial and I saw no flow in it or no collateral filling. I could not tell if this was chronic or new. Physical examination did reveal that the hand was warm and pink with good capillary refill and a palpable radial pulse. There is no evidence of ischemia. I then again used the AngioJet to lyse thrombus within the JA segment and a 4-Belarusian Francisco J embolectomy catheter to remove thrombus from the arterial anastomosis. Repeat contrast injections revealed some persistent abnormality in the arterial anastomosis and this was treated by repeated balloon angioplasty and several additional passes with the Francisco J catheter. When I was satisfied that the arterial anastomosis, it was opened, I noted that there was a recurrent thrombus in the body of the graft. The patient was given an additional 2000 units of heparin systemically and the AngioJet catheter used to lyse thrombus within the body of the graft, and when flow was restored, the two 6-Belarusian ports were removed and hemostasis obtained at those sites with some direct digital pressure and 4-0 Prolene sutures. The sites were dressed with Ultrafoam, Tegaderm, and Cavilon, and the patient awakened and taken to the recovery room. Blood loss was about 5 cc and unreplaced, and all sponges, instruments, and needles were accounted for. No drain was used and no surgical specimen was submitted for histopathology. TRANSINT:[id number] Voice Confirmation ID: [id number] DOCUMENT ID: [id number] JAMEL KHAN MD at 1244 CC: BERENICE HAINES MD [id number] DICTATION DATE: 03/03/18 1457 CLINICAL RESEARCH SPECIALIST: 03/03/18 1606 DIS IN 03/04/18 [place] [address] [place] [id number]
[2018-02-27 12:31] VITALS: BP 189/76; BMI 24.4
[2018-02-27 15:37] LABS: CALCIUM 9.9 mg/dL (8.5-10.1); CARBON DIOXIDE 26.7 mmol/L (21.0-32.0); POTASSIUM - SERUM 5.7 mmol/L (3.5-5.1)
[2018-02-27 20:05] VITALS: BP 181/85
[2018-02-28 05:17] VITALS: BP 193/77
[2018-02-28 05:57] LABS: BASOPHILS 0.5 % (0-2); EOSINOPHILS 8.6 % (0-7); HEMATOCRIT 29.1 % (42.0-54.0); HEMOGLOBIN 9.4 g/dL (13.5-17.5); IMMATURE GRANULOCYTES 0.3 % (0-5); MCH 30.4 pg (26.0-34.0); MCHC 32.3 g/dL (31.0-37.0); MCV 94.2 fL (80.0-100.0); MEAN PLATELET VOLUME 9.6 fL (7.4-10.4); MONOCYTES 6.7 % (2-11); NEUTROPHILS 52.9 % (40-80); PLATELET COUNT 112 10x3/uL (130-400); RBC 3.09 10x6/uL (4.20-6.10); RDW 16.6 % (11.5-14.5); WBC 3.7 10x3/uL (4.8-10.8)
[2018-02-28 06:22] LABS: ANION GAP 18.2 mmol/L (8-16); CALCIUM 9.4 mg/dL (8.5-10.1); CARBON DIOXIDE 25.7 mmol/L (21.0-32.0); CREATININE - SERUM 14.3 mg/dL (0.6-1.3); INR 1.16 (0.85-1.17); POTASSIUM - SERUM 5.9 mmol/L (3.5-5.1); PROTIME 14.4 SECONDS (11.6-15.0)
[2018-02-28 08:17] VITALS: BP 197/78
[2018-02-28 12:05] VITALS: BP 207/72
[2018-02-28 14:42] VITALS: Ht 185.4 cm; Wt 86.4 kg
[2018-02-28 16:45] VITALS: BP 198/81
[2018-03-01] VITALS: BP 158/82
[2018-03-01 04:00] VITALS: BP 157/72
[2018-03-01 09:00] LABS: ANION GAP 27.5 mmol/L (8-16); CALCIUM 9.5 mg/dL (8.5-10.1); CARBON DIOXIDE 18.4 mmol/L (21.0-32.0); CREATININE - SERUM 16.6 mg/dL (0.6-1.3); POTASSIUM - SERUM 5.9 mmol/L (3.5-5.1)
[2018-03-01 09:16] VITALS: BP 149/75
[2018-03-01 12:22] VITALS: BP 145/97
[2018-03-01 16:30] VITALS: BP 189/91
[2018-03-02 06:11] VITALS: BP 134/77
[2018-03-02 08:52] VITALS: BP 170/83
[2018-03-02 16:47] VITALS: BP 147/82
[2018-03-02 21:27] VITALS: BP 182/73
[2018-03-03 02:11] VITALS: BP 180/71
[2018-03-03 04:00] VITALS: BP 178/60
[2018-03-03 06:24] LABS: ANION GAP 12.8 mmol/L (8-16); CALCIUM 8.7 mg/dL (8.5-10.1); CREATININE - SERUM 11.9 mg/dL (0.6-1.3); POTASSIUM - SERUM 4.8 mmol/L (3.5-5.1)
[2018-03-03 06:25] LABS: APTT 35.2 SECONDS (22.8-39.4); INR 1.3 (0.85-1.17); PROTIME 15.8 SECONDS (11.6-15.0)
[2018-03-03 06:49] LABS: HEMATOCRIT 25.2 % (42.0-54.0); HEMOGLOBIN 8.1 g/dL (13.5-17.5); MCH 30.2 pg (26.0-34.0); MCHC 32.1 g/dL (31.0-37.0); MEAN PLATELET VOLUME 9.8 fL (7.4-10.4); PLATELET COUNT 104 10x3/uL (130-400); RBC 2.68 10x6/uL (4.20-6.10); RDW 16.8 % (11.5-14.5); WBC 2.6 10x3/uL (4.8-10.8)
[2018-03-03 08:16] LABS: EOSINOPHILS 9 % (0-7); LYMPHOCYTES 38 % (15-50); MONOCYTES 8 % (2-11); NEUTROPHILS 45 % (40-80); PLATELET ESTIMATE DECREASED
[2018-03-03 08:39] VITALS: BP 182/85
[2018-03-03 15:55] VITALS: BP 190/81
[2018-03-04 02:35] VITALS: BP 169/67
[2018-03-04 06:37] VITALS: BP 192/79
[2018-03-04 08:14] VITALS: BP 176/73
[2018-03-04] MEDS ORDERED: VIBRAMYCIN50 MG PO (12:58)
[2018-03-04] MEDS ORDERED: BRILINTA90 MG PO (12:59)
[2018-03-04] MEDS ORDERED: NORVASC5 MG PO (13:00)
[2018-03-04] MEDS ORDERED: ZESTRIL40 MG PO (13:01)
[2018-03-04] MEDS ORDERED: LONITEN2.5 MG PO (13:02)
== END 2018-03-04 15:55 | disposition home or self-care (01) | DRG 252 ==
LOC: D.MS 09:40 → D.M2 11:16
PROVIDERS: Internal Medicine Nephrology; Surgery
PROC: B51W1ZZ Fluoroscopy of Dialysis Shunt/Fistula using Low Osmolar Contrast (ICD-10-PCS; 2018-02-28)
PROC: B31J1ZZ Fluoroscopy of Left Upper Extremity Arteries using Low Osmolar Contrast (ICD-10-PCS; 2018-02-28)
PROC: 03780ZZ Dilation of Left Brachial Artery, Open Approach (ICD-10-PCS; principal; 2018-02-28 14:00)
PROC: 03C80ZZ Extirpation of Matter from Left Brachial Artery, Open Approach (ICD-10-PCS; 2018-02-28 14:00)
PROC: 5A1D70Z Performance of Urinary Filtration, Intermittent, Less than 6 Hours Per Day (ICD-10-PCS; 2018-03-01)
DX: T82.868A Thrombosis due to vascular prosthetic devices, implants and grafts, initial encounter (principal); N18.6 End stage renal disease; I12.0 Hypertensive chronic kidney disease with stage 5 chronic kidney disease or end stage renal disease; D68.59 Other primary thrombophilia; Y83.8 Other surgical procedures as the cause of abnormal reaction of the patient, or of later complication, without mention of misadventure at the time of the procedure; Z99.2 Dependence on renal dialysis; E87.5 Hyperkalemia

== ENCOUNTER 2018-05-01 10:58 | Inpatient (IN) | payer MEDICARE, BC ==
[~2018-05-01] VITALS: Ht 182.9 cm; Wt 85.6 kg
--- NOTE | ~2018-05-01 | OP ---
PATIENT NAME: BRITNEY LEMUS MEDICAL RECORD: [id number] :58 LOCATION:D.M2 D.2130 ADMISSION DATE:05/01/18 SURGEON: JAMEL KHAN MD DATE OF OPERATION: 05/02/2018 REFERRING PHYSICIAN: Chano Pennington MD PREOPERATIVE DIAGNOSIS: Thrombosed left upper extremity HeRO arteriovenous graft. POSTOPERATIVE DIAGNOSIS: Thrombosed left upper extremity HeRO arteriovenous graft. ADDITIONAL DIAGNOSES: End-stage renal disease, dependence on hemodialysis, lupus erythematosus and chronic thrombophilia. OPERATION PERFORMED: Left arm AV graft angiogram with AngioJet mechanical thrombolysis. SURGEON: Jamel Khan MD ANESTHESIA: General with LMA per ENVIRONMENTAL REMEDIATION CONSULTANT. PREOPERATIVE NOTE: Mr. Lemus is a very nice 57-year-old white male patient with end-stage renal disease, on chronic hemodialysis at home, presently dialyzing with a left upper extremity HeRO AV graft. He has extensive central vein stenoses or occlusions. He has already suffered thrombosis of this AV graft and it has spontaneously thrombosed once again despite his chronic therapy with Eliquis and Brilinta. He noted his graft was thrombosed on Tuesday and reported this on Tuesday and was brought to the hospital initially thinking he was to have surgery yesterday, but he was kept overnight and now brought to the operating room for a declot procedure. I think he is still outpatient status. DESCRIPTION OF PROCEDURE: Under general anesthesia with LMA per ENVIRONMENTAL REMEDIATION CONSULTANT, he was prepped and draped in a sterile manner. The graft was accessed near the arterial anastomosis in an antegrade direction towards the venous outflow. Micropuncture technique was used and eventually a 6-Greenlandic introducer was placed. I used an AngioJet catheter, 90 cm long over a 0.035 Glidewire to lyse and remove thrombus from the body of the graft and the outflow device. I then aspirated blood and found just a few fragments of thrombosis. The graft was then flushed with heparinized saline and the patient systemically heparinized with 5000 units. I accessed the graft again distally towards the apex directed proximally towards the arterial anastomosis. Micropuncture technique was used and this also led up to placement of a 6-Greenlandic introducer, I advanced a Glidewire and this easily passed across the arterial anastomosis and into the distal brachial artery and was then easily repositioned into the proximal brachial artery. A glide catheter was inserted and a selective brachial artery arteriogram performed, which revealed no evidence of obstruction to flow in the brachial artery, though there was apparent thrombus in the arterial anastomosis. This was though rather easily cleared with another passage of the AngioJet and the use of a 4-Greenlandic Francisco J embolectomy catheter. Final contrast studies demonstrated a wide open arterial anastomosis and wide open brachial artery and excellent flow in the graft through to the right atrium. The ports were removed and the puncture sites closed with [id number] 4-0 Prolene and a sterile dressing was applied and the patient awakened and taken to the recovery room. OPERATIVE REPORT [id number] BRITNEY LEMUS PLAN: The patient will resume his usual diet, medications and hopefully have dialysis here fairly expeditiously, and if his graft functions as expected, he should be able to go home then later today. TRANSINT:[id number] Voice Confirmation ID: [id number] DOCUMENT ID: [id number] JAMEL KHAN MD at 2153 CC: [id number] DICTATION DATE: 05/02/18 1225 COMPUTER SCIENCE INSTRUCTOR: 05/02/18 1240 DIS IN 05/02/[address] [facility] [address] [place] [address]
[~2018-05-01 10:58] MED LIST changes: +BRILINTA90 MG PO; +LONITEN2.5 MG PO; +VIBRAMYCIN50 MG PO; +ZESTRIL40 MG PO
[2018-05-01 11:57] VITALS: BP 159/78
[2018-05-01 12:04] LABS: BASOPHILS 0.6 % (0-2); EOSINOPHILS 8.2 % (0-7); HEMATOCRIT 35.6 % (42.0-54.0); HEMOGLOBIN 11.5 g/dL (13.5-17.5); IMMATURE GRANULOCYTES 0.6 % (0-5); LYMPHOCYTES 29.7 % (15-50); MCH 30.7 pg (26.0-34.0); MCHC 32.3 g/dL (31.0-37.0); MCV 94.9 fL (80.0-100.0); MEAN PLATELET VOLUME 9.9 fL (7.4-10.4); MONOCYTES 12.6 % (2-11); NEUTROPHILS 48.3 % (40-80); PLATELET COUNT 100 10x3/uL (130-400); RBC 3.75 10x6/uL (4.20-6.10); RDW 16.6 % (11.5-14.5); WBC 3.2 10x3/uL (4.8-10.8)
[2018-05-01 12:11] LABS: CALCIUM 9.7 mg/dL (8.5-10.1); CARBON DIOXIDE 25.3 mmol/L (21.0-32.0); CREATININE - SERUM 9.8 mg/dL (0.6-1.3); POTASSIUM - SERUM 4.3 mmol/L (3.5-5.1)
[2018-05-01 12:22] LABS: INR 1.11 (0.85-1.17); PROTIME 13.9 SECONDS (11.6-15.0)
[2018-05-01 16:33] LABS: ANION GAP 17.3 mmol/L (8-16); CALCIUM 9.4 mg/dL (8.5-10.1); CARBON DIOXIDE 27.1 mmol/L (21.0-32.0); CREATININE - SERUM 10.4 mg/dL (0.6-1.3); POTASSIUM - SERUM 4.4 mmol/L (3.5-5.1)
[2018-05-01 21:04] VITALS: BP 181/60
[2018-05-02 00:56] VITALS: BP 176/59
[2018-05-02 04:22] VITALS: BP 194/73
[2018-05-02 04:49] LABS: ANION GAP 14.5 mmol/L (8-16); CALCIUM 9.1 mg/dL (8.5-10.1); CARBON DIOXIDE 28.2 mmol/L (21.0-32.0); CREATININE - SERUM 11.7 mg/dL (0.6-1.3); POTASSIUM - SERUM 4.7 mmol/L (3.5-5.1)
[2018-05-02 05:55] LABS: BASOPHILS 0.2 % (0-2); HEMOGLOBIN 11.3 g/dL (13.5-17.5); IMMATURE GRANULOCYTES 0.2 % (0-5); LYMPHOCYTES 35.3 % (15-50); MCH 30.5 pg (26.0-34.0); MCHC 32.3 g/dL (31.0-37.0); MCV 94.6 fL (80.0-100.0); MEAN PLATELET VOLUME 10.2 fL (7.4-10.4); MONOCYTES 8.7 % (2-11); NEUTROPHILS 47.6 % (40-80); RDW 16.5 % (11.5-14.5)
[2018-05-02 06:16] LABS: PLATELET COUNT 132 10x3/uL (130-400); WBC 4.5 10x3/uL (4.8-10.8)
[2018-05-02 07:49] VITALS: BP 159/51
[2018-05-02 10:19] VITALS: Ht 182.9 cm; Wt 85.6 kg
[2018-05-02 13:06] VITALS: BP 161/77
== END 2018-05-02 18:19 | disposition home or self-care (01) | DRG 252 ==
LOC: D.M2 10:58 → D.OPS 10:58 → D.M2 14:13 → D.OPS 14:14 → D.M2 14:15
PROVIDERS: Anesthesiology; Internal Medicine; Internal Medicine Nephrology; Surgery
PROC: 5A1D70Z Performance of Urinary Filtration, Intermittent, Less than 6 Hours Per Day (ICD-10-PCS; 2018-05-02)
PROC: 03C83ZZ Extirpation of Matter from Left Brachial Artery, Percutaneous Approach (ICD-10-PCS; principal; 2018-05-02 09:00)
PROC: B31N1ZZ Fluoroscopy of Other Upper Arteries using Low Osmolar Contrast (ICD-10-PCS; 2018-05-02 09:00)
DX: T82.868A Thrombosis due to vascular prosthetic devices, implants and grafts, initial encounter (principal); N18.6 End stage renal disease; I13.2 Hypertensive heart and chronic kidney disease with heart failure and with stage 5 chronic kidney disease, or end stage renal disease; I87.1 Compression of vein; D68.59 Other primary thrombophilia; Y83.8 Other surgical procedures as the cause of abnormal reaction of the patient, or of later complication, without mention of misadventure at the time of the procedure; I50.9 Heart failure, unspecified; Z99.2 Dependence on renal dialysis; M32.9 Systemic lupus erythematosus, unspecified; I25.10 Atherosclerotic heart disease of native coronary artery without angina pectoris; I73.9 Peripheral vascular disease, unspecified

== ENCOUNTER 2018-05-30 05:27 | Inpatient (IN) | payer MEDICARE, BC ==
[~2018-05-30] VITALS: Ht 185.4 cm; Wt 88.7 kg
--- NOTE | ~2018-05-30 | MORECARE ---
CASE MANAGEMENT DISCHARGE SUMMARY PATIENT: BRITNEY LEMUS UNIT: [id number] ADM DATE: 05/30/18 AGE: 57 : 58 SEX: M ROOM/BED: D.2106 AUTHOR: LIONEL CONNOLLY PHYSICIAN: REFERRING PHYSICIAN: MARTÍNEZ CHONG MD DATE OF SERVICE: 06/02/18 Discharge Plan Patient Name: BRITNEY LEMUS Facility: [facility]:[place] : 1960 Planned Disposition: Home Anticipated Discharge Date: 06/02/18 Discharge Date: 06/02/2018 Expected LOS: 3 Initial Reviewer: [email or web address] Initial Review Date: 06/02/2018 Generated: 06/02/18 6:18 pm Comments DCP- Discharge Planning Updated by [email or web address]: Jacinto Rebollar on 06/02/18 4:[address] Patient Name: BRITNEY LEMUS Admission Status: Elective Accout number: [id number] Admission Date: 05-30-2018 : 1960 Admission Diagnosis: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 PT REPORTS LIVING AT HOME INDEPENDENTLY WITH SPOUSE. PT HAS CANE, WALKER, HOME OXYGEN FROM [facility]. PT DOES NOT USE THE OXYGEN OR WALKER AT THIS TIME. PT HAS NO OUTSIDE SERVICES ASSISTING IN THE HOME. PT HAS HOME HEMODILAYSIS EQUIPMENT AT HOME, DOES DIALYSIS EVERY DAY EXCEPT TUESDAY AND TUESDAY. CM DISCUSSED AVAILABILITY OF HOME HEALTH, REHAB SERVICES AND MEDICAL EQUIPMENT. PT DENIES DISCHARGE NEEDS, REPORTS HIS WILL PICK HIM UP FOR DISCHARGE HOME. IMPORTANT MESSAGE FROM MEDICARE PROVIDED AND EXPLAINED. EMPLOYMENT ADJUDICATOR NURSE NOTIFIED. Oil Sales And Service Rep: Jacinto Rebollar DCPIA - Discharge Planning Initial Assessment Updated by [email or web address]: Jacinto Rebollar on 06/02/18 5:16 pm * Is the patient Alert and Oriented? Yes * How many steps to enter\exit or inside your home? NONE * PCP DR. ASH IN [place] OR DR. MARTÍNEZ CHONG - CHASER APPRENTICE * Pharmacy [facility] IN [place] * Preadmission Environment Home with Family * ADLs Independent * Equipment Cane Oxygen Walker * Other Equipment HOME OXYGEN AND WALKER - PT DOES NOT USE [facility] - PROVIDER * List name and contact numbers for known caregivers / representatives who currently or will assist patient after discharge: MICHELLE LEMUS, SPOUSE, * Verbal permission to speak to the caregivers and representatives has been obtained from the patient. N/A * Community resources currently utilized Other * Please name any agencies selected above. HOME HEMODIALYSIS, 5 DAYS WEEKLY (NONE ON TUE/TUE) * Additional services required to return to the preadmission environment? No * Can the patient safely return to the preadmission environment? Yes * Has this patient been hospitalized within the prior 30 days at any hospital? No Coverage Notice Reviewer: [email or web address] Gil Rebollar Notice Issued Date-Time: 06/02/2018 14:15 Notice Type: IM Discharge Notice Notice Delivered To: Patient Relationship to Patient: Risk Control Director Name: Delivery Method: HAND - Hand Delivered Anna Days: Prior Verbal Notification: Recipient Understood Notice: Yes Recipient Signature: Yes Med Rec Note Co-signed by Attending: Coverage Notice Comment: Patient Name: BRITNEY LEMUS Page 25069 at 1718 All edits/amendments must be made on the electronic document DICTATION DATE: 06/02/181717 PRIMER BOXER: RAJ 06/02/181717 RPT#: [id number] DC DATE:06/02/18 STATUS: DIS IN [facility] [address] [place] [address] END OF REPORT
[2018-05-30 06:05] LABS: BASOPHILS 0.8 % (0-2); EOSINOPHILS 12.5 % (0-7); HEMATOCRIT 36.1 % (42.0-54.0); HEMOGLOBIN 11.8 g/dL (13.5-17.5); MCH 30.3 pg (26.0-34.0); MCHC 32.7 g/dL (31.0-37.0); MCV 92.6 fL (80.0-100.0); MEAN PLATELET VOLUME 10.4 fL (7.4-10.4); MONOCYTES 9.7 % (2-11); PLATELET COUNT 109 10x3/uL (130-400); RDW 16.3 % (11.5-14.5); WBC 3.6 10x3/uL (4.8-10.8)
[2018-05-30 06:17] LABS: ANION GAP 11.6 mmol/L (8-16); CALCIUM 9.8 mg/dL (8.5-10.1); CARBON DIOXIDE 28.9 mmol/L (21.0-32.0); CREATININE - SERUM 7.9 mg/dL (0.6-1.3); POTASSIUM - SERUM 3.5 mmol/L (3.5-5.1)
[2018-05-30 06:21] LABS: APTT 36.7 SECONDS (22.8-39.4); INR 1.11 (0.85-1.17); PROTIME 13.9 SECONDS (11.6-15.0)
[2018-05-30 06:48] VITALS: BMI 24.2
[2018-05-30 16:44] VITALS: BP 147/73; BMI 24.9
[2018-05-30 17:12] VITALS: BP 147/73
[2018-05-31 04:00] VITALS: BP 168/72
[2018-05-31 08:27] VITALS: BP 198/42
[2018-05-31 11:50] VITALS: Ht 185.4 cm; Wt 88.7 kg
[2018-05-31 12:35] LABS: BASOPHILS 0.4 % (0-2); HEMATOCRIT 32.9 % (42.0-54.0); HEMOGLOBIN 10.8 g/dL (13.5-17.5); LYMPHOCYTES 22.3 % (15-50); MCH 30.9 pg (26.0-34.0); MCHC 32.8 g/dL (31.0-37.0); MEAN PLATELET VOLUME 10.5 fL (7.4-10.4); MONOCYTES 11.3 % (2-11); RDW 16.3 % (11.5-14.5); WBC 2.8 10x3/uL (4.8-10.8)
[2018-05-31 12:47] LABS: PLATELET COUNT 81 10x3/uL (130-400)
[2018-05-31 12:49] LABS: ANION GAP 17.8 mmol/L (8-16); CALCIUM 8.9 mg/dL (8.5-10.1); CARBON DIOXIDE 25.3 mmol/L (21.0-32.0); CREATININE - SERUM 10.1 mg/dL (0.6-1.3); POTASSIUM - SERUM 4.1 mmol/L (3.5-5.1)
[2018-05-31 18:38] VITALS: BP 168/49
[2018-05-31 20:00] VITALS: BP 178/71
[2018-06-01 00:53] VITALS: BP 172/60
[2018-06-01 04:00] VITALS: BP 166/62
[2018-06-01 06:22] LABS: BASOPHILS 0 % (0-2); EOSINOPHILS 18.7 % (0-7); LYMPHOCYTES 30.6 % (15-50); MCH 30.7 pg (26.0-34.0); MCHC 33.3 g/dL (31.0-37.0); MEAN PLATELET VOLUME 9.4 fL (7.4-10.4); MONOCYTES 8.3 % (2-11); NEUTROPHILS 42.4 % (40-80); PLATELET COUNT 79 10x3/uL (130-400); RBC 3.26 10x6/uL (4.20-6.10); RDW 16.2 % (11.5-14.5); WBC 2.5 10x3/uL (4.8-10.8)
[2018-06-01 06:39] LABS: ANION GAP 19.8 mmol/L (8-16); CALCIUM 8.8 mg/dL (8.5-10.1); CREATININE - SERUM 11.9 mg/dL (0.6-1.3); POTASSIUM - SERUM 3.8 mmol/L (3.5-5.1)
[2018-06-01 06:40] LABS: INR 1.3 (0.85-1.17); PROTIME 15.7 SECONDS (11.6-15.0)
[2018-06-01 08:58] VITALS: BP 182/58
[2018-06-01 11:00] VITALS: BP 168/79
[2018-06-01 20:52] VITALS: BP 178/47
[2018-06-02] VITALS: BP 156/67
[2018-06-02 03:00] VITALS: BP 159/86
[2018-06-02 04:00] VITALS: BP 164/56
[2018-06-02 06:26] LABS: BASOPHILS 0.3 % (0-2); EOSINOPHILS 15.2 % (0-7); HEMATOCRIT 29.3 % (42.0-54.0); HEMOGLOBIN 9.6 g/dL (13.5-17.5); LYMPHOCYTES 22.7 % (15-50); MCH 30.3 pg (26.0-34.0); MCHC 32.8 g/dL (31.0-37.0); MCV 92.4 fL (80.0-100.0); MEAN PLATELET VOLUME 10.5 fL (7.4-10.4); MONOCYTES 10.6 % (2-11); NEUTROPHILS 51.2 % (40-80); PLATELET COUNT 83 10x3/uL (130-400); RBC 3.17 10x6/uL (4.20-6.10); RDW 16.5 % (11.5-14.5)
[2018-06-02 06:27] LABS: WBC 3.3 10x3/uL (4.8-10.8)
[2018-06-02 06:31] LABS: ANION GAP 17.7 mmol/L (8-16); CALCIUM 8.6 mg/dL (8.5-10.1); CARBON DIOXIDE 24.2 mmol/L (21.0-32.0); CREATININE - SERUM 12.3 mg/dL (0.6-1.3); POTASSIUM - SERUM 3.9 mmol/L (3.5-5.1)
[2018-06-02 08:56] VITALS: BP 164/70
== END 2018-06-02 16:15 | disposition home or self-care (01) | DRG 252 ==
LOC: D.OPS 05:27 → D.M2 05:27 → D.OPS 08:00 → D.M2 16:10 → D.OPS 16:11 → D.M2 16:12
PROVIDERS: Internal Medicine Nephrology; Surgery
PROC: 03180JF Bypass Left Brachial Artery to Lower Arm Vein with Synthetic Substitute, Open Approach (ICD-10-PCS; principal; 2018-05-30 08:00)
PROC: 06HN33Z Insertion of Infusion Device into Left Femoral Vein, Percutaneous Approach (ICD-10-PCS; 2018-06-01)
PROC: 03C83ZZ Extirpation of Matter from Left Brachial Artery, Percutaneous Approach (ICD-10-PCS; 2018-06-01 09:00)
PROC: 03783DZ Dilation of Left Brachial Artery with Intraluminal Device, Percutaneous Approach (ICD-10-PCS; 2018-06-01 09:00)
PROC: B5191ZZ Fluoroscopy of Inferior Vena Cava using Low Osmolar Contrast (ICD-10-PCS; 2018-06-01 09:00)
DX: T82.868A Thrombosis due to vascular prosthetic devices, implants and grafts, initial encounter (principal); N18.6 End stage renal disease; I13.2 Hypertensive heart and chronic kidney disease with heart failure and with stage 5 chronic kidney disease, or end stage renal disease; D68.59 Other primary thrombophilia; Y83.8 Other surgical procedures as the cause of abnormal reaction of the patient, or of later complication, without mention of misadventure at the time of the procedure; I50.9 Heart failure, unspecified; Z99.2 Dependence on renal dialysis; I73.9 Peripheral vascular disease, unspecified; K21.9 Gastro-esophageal reflux disease without esophagitis; M32.9 Systemic lupus erythematosus, unspecified; L98.499 Non-pressure chronic ulcer of skin of other sites with unspecified severity

== ENCOUNTER 2018-06-04 02:37 | Inpatient (IN) | payer MEDICARE, BC ==
[~2018-06-04] VITALS: Ht 185.4 cm; Wt 82.7 kg
--- NOTE | ~2018-06-04 | MORECARE ---
CASE MANAGEMENT DISCHARGE SUMMARY PATIENT: BRITNEY LEMUS UNIT: [id number] ADM DATE: 06/04/18 AGE: 57 : 58 SEX: M ROOM/BED: D.3188 AUTHOR: LIONEL CONNOLLY PHYSICIAN: REFERRING PHYSICIAN: MARTÍNEZ CHONG MD DATE OF SERVICE: 06/08/18 Discharge Plan Patient Name: BRITNEY LEMUS Facility: [facility]:[place] : 1960 Planned Disposition: Home Anticipated Discharge Date: Discharge Date: Expected LOS: Initial Reviewer: [email or web address] Initial Review Date: 06/08/2018 Generated: 06/08/18 6:17 pm Comments DCP- Discharge Planning Updated by [email or web address]: Jacinto Rebollar on 06/08/18 4:[address] Patient Name: BRITNEY LEMUS Admission Status: ER Accout number: [id number] Admission Date: 06-04-2018 : 1960 Admission Diagnosis:THROMBOSIS DUE TO VASCULAR PROSTH DEV/GRFT, INIT Attending: MARTÍNEZ CHONG Current LOS: 4 Anticipated DC Date: Planned Disposition: Home Primary Insurance: MEDICARE A & B Discharge Planning Comments: CM MET WITH PT IN ROOM TO DISCUSS DISCHARGE PLANNING AND NEEDS. PT REPORTS LIVING AT HOME INDEPENDENTLY WITH SPOUSE. PT HAS WALKER THAT HE DOES NOT USE AND OXYGEN FOR HOME ONLY FROM [facility]. PT HAS NO OUTSIDE SERVICES ASSISTING IN THE HOME. PT DOES HOME HEMODIALYSIS WITH ASSISTANCE OF SPOUSE 5 DAYS PER WEEK. CM DISCUSSED AVAILABILITY OF HOME HEALTH, REHAB SERVICES AND MEDICAL EQUIPMENT. PT DENIES DISCHARGE NEEDS, REPORTS HIS WILL PICK HIM UP FOR DISCHARGE HOME. PT PLANS TO DISCHARGE HOME WITH ASSISTANCE OF SPOUSE, DENIES NEEDS FOR DISCHARGE AT THIS TIME. CM TO FOLLOW AND ASSIST NEEDED. Litigation Legal Assistant: Jacinto Rebollar DCPIA - Discharge Planning Initial Assessment Updated by [email or web address]: Jacinto Rebollar on 06/08/18 5:09 pm * Is the patient Alert and Oriented? Yes * How many steps to enter\exit or inside your home? NONE * PCP DR. ASH IN [place] * Pharmacy [facility] IN [place] * Preadmission Environment Home with Family * ADLs Independent * Equipment Cane Oxygen Walker * Other Equipment HOME OXYGEN ONLY; PT DOES NOT USE WALKER [facility] - PROVIDER * List name and contact numbers for known caregivers / representatives who currently or will assist patient after discharge: MICHELLE LEMUS, SPOUSE, * Verbal permission to speak to the caregivers and representatives has been obtained from the patient. N/A * Community resources currently utilized Other * Please name any agencies selected above. HOME HEMODIALYSIS 5 DAYS PER WEEK * Additional services required to return to the preadmission environment? No * Can the patient safely return to the preadmission environment? Yes * Has this patient been hospitalized within the prior 30 days at any hospital? Yes Last DP export: 06/08/18 4:09 Patient Name: BRITNEY LEMUS Page 72060 at 1717 All edits/amendments must be made on the electronic document DICTATION DATE: 06/08/181715 BUILDING SERVICE WORKER: RAJ 06/08/181715 RPT#: [id number] DC DATE: STATUS: ADM IN [facility] [address] [place] [address] END OF REPORT
--- NOTE | ~2018-06-04 | OP ---
PATIENT NAME: BRITNEY LEMUS MEDICAL RECORD: [id number] :58 LOCATION:D.M2 D.2109 ADMISSION DATE:06/04/18 SURGEON: JAMEL KHAN MD DATE OF OPERATION: 06/10/2018 REFERRED BY: Néstor Bautista MD PREOPERATIVE DIAGNOSES: Thrombosed AV graft, left upper extremity, recurrent. End-stage renal disease, dependence on hemodialysis. Systemic lupus erythematosus with coagulopathy or thrombophilia due to lupus anticoagulant. POSTOPERATIVE DIAGNOSES: Thrombosed AV graft, left upper extremity, recurrent. End-stage renal disease, dependence on hemodialysis. Systemic lupus erythematosus with coagulopathy or thrombophilia due to lupus anticoagulant. OPERATION PERFORMED: Percutaneous ultrasound-guided access and mechanical thrombolysis with AngioJet and balloon angioplasty of the entire body of the HeRO graft in the left upper extremity and selective brachial artery arteriogram. SURGEON: Jamel Khan MD ANESTHESIA: General with LMA per OPTICAL ASSISTANT. PREOPERATIVE NOTE: Mr. Lemus thrombosed his HeRO graft fairly soon after his heparin was discontinued. He has been started on Coumadin and was continued at least through last evening on his Eliquis and Brilinta. He is brought to the operating room now without the advantage of repeated coagulation studies. I plan to do another percutaneous mechanical thrombolysis with the AngioJet and indicated procedures. I do not believe that the thrombosis is due particularly to any fixable mechanical defect in the access, but is more related to the shear length of the contact surface with flowing blood and his severe thrombophilia. Hopefully, he will do better on Coumadin than he did on Eliquis. I plan to continue the Brilinta. He may also need to be on heparin until his INR is therapeutic and the therapeutic range for this patient is 2-2.5, definitely 2 or higher. DESCRIPTION OF PROCEDURE: Under anesthesia, the patient was in supine position, prepped and draped in a sterile manner. The arterial limb of the access was entered with micropuncture technique and ultrasound guidance, and a 6-Macedonian introducer was directed towards the outflow. A Glidewire was passed and over that, an AngioJet catheter and the AngioJet was used to lyse thrombus all the way to the right atrium in and out slowly. Contrast injection then revealed free flow of contrast through the outflow device and some persistent irregularities along the body of the graft in the upper arm and shoulder area. These were subsequently treated by balloon angioplasty with a 7-mm diameter angioplasty balloon and hand inflation. The patient was given 3000 units of heparin systemically about that time. After the angioplasty, repeated contrast injections revealed a much better appearance. I specifically tested to see if a kink would be present in the graft with adduction of the arm, but there was not. A second introducer was placed again with micropuncture technique and the arterial limb directed towards the arterial anastomosis. Over a Glidewire, the AngioJet was used to lyse thrombus. A glide catheter was passed up into the proximal brachial artery and a selective brachial artery arteriogram performed OPERATIVE REPORT [id number] BRITNEY LEMUS to rule out embolus and the arteriogram looked great. There was what appeared to be some adherent persistent clot in the PTFE about an inch beyond the arterial anastomosis, which itself looked great. I used the same angioplasty balloon to dilate and impact thrombus along this segment and that subsequently restored good flow in the graft. Contrast injections demonstrated good flow from the arterial anastomosis to the right atrium. The ports were removed and hemostasis obtained with direct pressure and 4-0 Prolene [id number] sutures. Also, these 2 puncture sites were dressed with Ultrafoam wet with topical thrombin solution. Sutures from prior accesses and sutures along the incision on the lateral aspect of the arm where I had removed the older portion of the graft were sealed with Dermabond glue and the puncture sites which bled and the sutures were removed were also dressed with Ultrafoam and thrombin. The patient was awakened and with an excellent palpable thrill and pulsation within the HeRO graft with good augmentation and collapse even. The patient was taken to the recovery room in stable condition. In the recovery room, we will check PT with INR and PTT and CBC. I will then decide if he needs to be on continuous heparin for the rest of the day. His usual daily dose of Coumadin in the past has been 5 mg and I will plan to likely give him 10 mg today and will continue giving him doses in that 10-15 mg range until his INR is approaching 2. Blood loss during the operation was trivial, probably less than 10 cc, none was replaced. All sponges, instruments, and needles were accounted for. No drain was used and no surgical specimen was submitted for histopathology. PLAN: The patient will need to go on to dialysis today. I have left open access to the new length of PBX MANAGER graft, which I recently implanted. It can be accessed. I prefer that this be done with Acuseal technique and initially for the first 2 weeks with a 17-gauge needle. TRANSINT:[id number] Voice Confirmation ID: [id number] DOCUMENT ID: [id number] JAMEL KHAN MD at 1053 CC: ROSA CONNELLY MD, MEJIA PITT, CHACORTA RONDON MD and NÉSTOR [id number] DICTATION DATE: 06/10/18 1007 CLOTH CUTTING MACHINE OPERATOR: 06/10/18 1032 ADM IN [facility] [address] [place] [address]
--- NOTE | ~2018-06-04 | MORECARE ---
CASE MANAGEMENT DISCHARGE SUMMARY PATIENT: BRITNEY LEMUS UNIT: [id number] ADM DATE: 06/04/18 AGE: 57 : 58 SEX: M ROOM/BED: D.2109 AUTHOR: LIONEL CONNOLLY PHYSICIAN: REFERRING PHYSICIAN: MARTÍNEZ CHONG MD DATE OF SERVICE: 06/08/18 Discharge Plan Patient Name: BRITNEY LEMUS Facility: [facility]:[place] : 1960 Planned Disposition: Home Anticipated Discharge Date: Discharge Date: Expected LOS: Initial Reviewer: [email or web address] Initial Review Date: 06/08/2018 Generated: 06/08/18 6:09 pm Patient Name: BRITNEY LEMUS Page [id number] at 1709 All edits/amendments must be made on the electronic document DICTATION DATE: 06/08/181707 TRAUMA REGISTRAR: RAJ 06/08/181707 RPT#: [id number] DC DATE: STATUS: ADM IN [facility] [address] [place] [address] END OF REPORT
--- NOTE | ~2018-06-04 | CN ---
PATIENT NAME:BRITNEY LEMUS MEDICAL RECORD: [id number] : 58 LOCATION:D. D.2109 ADMIT DATE: 06/04/18 ACCOUNT: [id number] CONSULTING PHYSICIAN: ROSA CONNELLY MD REFERRING PHYSICIAN: MARTÍNEZ BAUTISTA MD DATE OF CONSULTATION: 06/06/2018 Rheumatology Consultation HOSPITAL COURSE: Britney Lemus is a 57-year-old gentleman who I have been asked to evaluate by Dr. Ogden regarding history of lupus and recurrent blood clots. History is obtained some from the current records and from the patient. The patient reports that he saw me approximately 18 years ago when he first developed abnormalities, found to have lupus and he was referred to Dr. Katlyn Bautista who assumed his care at that time. He reports he had renal biopsy showing nephritis, rapid deterioration in kidney function. He has been on hemodialysis approximately 18 years. He reports that in the distant past he was treated with prednisone for at least 10 years and has been off prednisone. Approximately 8 or 9 years while on prednisone, he developed bilateral hip osteonecrosis and had each hip drilled by Dr. Luis Bains approximately 6 years ago. At one point, he was on cyclosporine, but he cannot tell me when or when it was stopped. He cannot tell me he has ever received Cytoxan or CellCept. The patient reports he had onset of blood clots in his legs, approximately 16-18 years ago and at some point thereafter developed a pulmonary embolus and had vena caval filter placed. He reports he has been receiving warfarin approximately 16-18 years until October 2017, when he was switched to Eliquis and Brilinta. Since he has been switched from warfarin to Eliquis and Brilinta, he reports he had recurrent clots in his shunts and it has occurred once again. He has been consulted by Dr. Looney, hematology rehabilitation consultant, and had ordered lupus anticoagulant. The lupus anticoagulant was drawn on 07/05 and he was restarted on Eliquis on 07/06. Anticardiolipin antibodies are pending. The patient did not require in the past treatment with Plaquenil. Regarding his lupus, he has had arthralgias. He did have "fluid around his heart" that may have been when he had heart failure. He denies photosensitivity. He did have one seizure 16 years ago. 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 He reports that years ago he had infected heart valve, treated with 8 weeks of antibiotics, did not require surgery. Patient goes to Dr. Ray for his right lower extremity "blood clot". He cannot tell me if this developed before or after being switched to Eliquis and Brilinta. CONSULT REPORT [id number] BRITNEY LEMUS HOME MEDICATIONS: Per renal H&P are as follows: Hydrocodone 5/325 p.r.n., Eliquis 2.5 mg b.i.d., Brilinta 90 mg b.i.d., amlodipine 5 mg daily, Zestril 40 mg daily, minoxidil 2.5 mg daily. CURRENT MEDICATIONS: Percocet 5/325 p.r.n., Brilinta 90 mg b.i.d. (restarted 04/06/2018), Eliquis 2.5 mg b.i.d. (restarted 04/06/2018), Prednisone 50 mg a day (restarted 04/06/2018), doxycycline 50 mg daily, gabapentin 300 mg at bedtime, Protonix 40 mg daily, Renagel 4000 mg t.i.d., minoxidil 2.5 mg b.i.d., lisinopril 40 mg daily, amlodipine 5 mg daily, Robaxin 750 mg q.i.d. p.r.n., and levothyroxine 150 mcg daily. MEDICATION ALLERGIES: BACITRACIN, NEOMYCIN, AMOXICILLIN, ROCEPHIN, AUGMENTIN, CYCLOSPORINE, AND ZOLPIDEM. Diagnosis of lupus with renal biopsy approximately 18 years ago and subsequent renal insufficiency also reported above. He is on home hemodialysis. He has had multiple grafts. He has had recurrent lower extremity DVTs starting approximately 16-18 years ago. He subsequently had pulmonary embolus requiring placement of vena caval filter. He is on chronic warfarin therapy for anticoagulation up until October 2017, which switched to Eliquis and Brilinta. Since being converted, he has had recurrent clots in his grafts. 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 SOCIAL HISTORY: Former smoker. He does not drink alcohol. He lives in [facility]. FAMILY HISTORY: Negative for lupus, rheumatoid arthritis, and blood clotting. REVIEW OF SYSTEMS: Denies chills, sweats, cough, dyspnea, orthopnea, PND, abdominal pain, nausea, vomiting, melena or hematochezia. PHYSICAL EXAMINATION: VITAL SIGNS: Blood pressure 151/72, pulse 78, respirations 18, temperature 98. GENERAL: He is a well-developed, chronically ill-appearing man in no acute distress. He is moderately hard of hearing. EYES: Conjunctivae are clear. Mouth is moist, without lesion. NECK: Free of adenopathy or masses. LUNGS: Clear. CARDIOVASCULAR: S1 and S2 are normal without gallop, murmur, or rub. ABDOMEN: Soft, nontender, without masses. MUSCULOSKELETAL: There is no inflammation in any joint in upper and lower extremities. NEUROLOGIC: He is alert, moves all his extremities well. He is moderately hard of hearing. Otherwise, cranial nerves are intact. SKIN: He has somewhat dark complexion, but is no purpura or petechia or infarcts. He is alert, oriented. SKIN: There is a surgical incision in the left upper extremity. IMPRESSION: 1. Systemic lupus erythematosus by history. A. Reported remote glomerulonephritis with renal biopsy approximately 1999 with subsequent renal failure on hemodialysis. B. History of arthralgias. CONSULT REPORT [id number] BRITNEY LEMUS C. One episode of seizure 16 years ago. D. Previous chronic prednisone therapy until approximately 2009. 2. History of osteonecrosis of the hips with previous surgical drilling/decompression approximately 2011. 3. Recurrent deep vein thrombosis, lower extremities and one episode of pulmonary embolus onset approximately 2001 with inferior vena caval filter, chronic warfarin therapy until October 2017. 4. Reported recurrent clots in grafts/fistulous since conversion from warfarin to Eliquis and Brilinta. 5. Organic heart disease, history of congestive heart failure, remote episode of infective valve endocarditis per patient's description, successfully treated with antibiotics. RECOMMENDATIONS: 1. Await results of lupus anticoagulant. 2. Await results of anticardiolipin antibodies. 3. After both test resulted, consider converting the patient from Eliquis and Brilinta back to warfarin. 4. If the patient has positive lupus anticoagulant anticardiolipin antibodies, addition of hydroxychloroquine may sometimes reduce anticardiolipin levels and might help ameliorate some of the hypercoagulable state if indeed he has lupus anticoagulant. DISCUSSION: The patient had recurrent blood clots, which may or may not represent anticardiolipin antiphospholipid syndrome. Most lupus patient with antiphospholipid syndrome or managed with warfarin, but occasionally warfarin is unsuccessful and do require some of the newer anticoagulants. However, per patient's description, he denied any difficulty with warfarin. Denies any bleeding problems and since he has had recurrent clots on his current regimen, it would be reasonable to convert him back to warfarin if not contraindicated. TRANSINT:[id number] Voice Confirmation ID: [id number] DOCUMENT ID: [id number] ROSA CONNELLY MD at 0755 CC: [id number] DICTATION DATE: 06/06/181857 GARAGE SUPERVISOR: 06/06/182128 ADM IN [facility] [address] [place] [address]
--- NOTE | ~2018-06-04 | MORECARE ---
CASE MANAGEMENT DISCHARGE SUMMARY PATIENT: BRITNEY LEMUS UNIT: [id number] ADM DATE: 06/04/18 AGE: 57 : 58 SEX: M ROOM/BED: D.2102 AUTHOR: LIONEL CONNOLLY PHYSICIAN: REFERRING PHYSICIAN: MARTÍNEZ CHONG MD DATE OF SERVICE: 06/12/18 Discharge Plan Patient Name: BRITNEY LEMUS Facility: [facility]:[place] : 1960 Planned Disposition: Home Anticipated Discharge Date: 06/11/18 Discharge Date: 06/11/2018 Expected LOS: 7 Initial Reviewer: [email or web address] Initial Review Date: 06/08/2018 Generated: 06/12/18 9:23 am Comments DCP- Discharge Planning Updated by [email or web address]: Jacinto Rebollar on 06/08/18 4:[address] Patient Name: BRITNEY LEMUS Admission Status: ER Accout number: [id number] Admission Date: 06-04-2018 : 1960 Admission Diagnosis:THROMBOSIS DUE TO VASCULAR PROSTH DEV/GRFT, INIT Attending: MARTÍNEZ CHONG Current LOS: 4 Anticipated DC Date: Planned Disposition: Home Primary Insurance: MEDICARE A & B Discharge Planning Comments: CM MET WITH PT IN ROOM TO DISCUSS DISCHARGE PLANNING AND NEEDS. PT REPORTS LIVING AT HOME INDEPENDENTLY WITH SPOUSE. PT HAS WALKER THAT HE DOES NOT USE AND OXYGEN FOR HOME ONLY FROM [facility]. PT HAS NO OUTSIDE SERVICES ASSISTING IN THE HOME. PT DOES HOME HEMODIALYSIS WITH ASSISTANCE OF SPOUSE 5 DAYS PER WEEK. CM DISCUSSED AVAILABILITY OF HOME HEALTH, REHAB SERVICES AND MEDICAL EQUIPMENT. PT DENIES DISCHARGE NEEDS, REPORTS HIS WILL PICK HIM UP FOR DISCHARGE HOME. PT PLANS TO DISCHARGE HOME WITH ASSISTANCE OF SPOUSE, DENIES NEEDS FOR DISCHARGE AT THIS TIME. CM TO FOLLOW AND ASSIST NEEDED. Snuff Drier: Jacinto Rebollar DCPIA - Discharge Planning Initial Assessment Updated by [email or web address]: Jacinto Rebollar on 06/08/18 5:09 pm * Is the patient Alert and Oriented? Yes * How many steps to enter\exit or inside your home? NONE * PCP DR. ASH IN [place] * Pharmacy [facility] IN [place] * Preadmission Environment Home with Family * ADLs Independent * Equipment Cane Oxygen Walker * Other Equipment HOME OXYGEN ONLY; PT DOES NOT USE WALKER [employer] - PROVIDER * List name and contact numbers for known caregivers / representatives who currently or will assist patient after discharge: MICHELLE LEMUS, SPOUSE, * Verbal permission to speak to the caregivers and representatives has been obtained from the patient. N/A * Community resources currently utilized Other * Please name any agencies selected above. HOME HEMODIALYSIS 5 DAYS PER WEEK * Additional services required to return to the preadmission environment? No * Can the patient safely return to the preadmission environment? Yes * Has this patient been hospitalized within the prior 30 days at any hospital? Yes Last DP export: 06/08/18 4:17 Patient Name: BRITNEY LEMUS Page 37508 at 0823 All edits/amendments must be made on the electronic document DICTATION DATE: 06/12/18822 HOTEL CONTROLLER: RAJ 06/12/18822 RPT#: [id number] DC DATE:06/11/18 STATUS: DIS IN [facility] [address] [place] [address] END OF REPORT
--- NOTE | ~2018-06-04 | OP ---
PATIENT NAME: BRITNEY LEMUS MEDICAL RECORD: [id number] :58 LOCATION:D.M2 D.2109 ADMISSION DATE:06/04/18 SURGEON: JAMEL KHAN MD DATE OF OPERATION: 06/05/2018 PREOPERATIVE DIAGNOSES: Thrombosed left upper extremity HeRO arteriovenous graft; end-stage renal disease, dependence on hemodialysis; lupus erythematosus, systemic; and thrombophilia. POSTOPERATIVE DIAGNOSES: Thrombosed left upper extremity HeRO arteriovenous graft; end-stage renal disease, dependence on hemodialysis; lupus erythematosus, systemic; and thrombophilia. OPERATION PERFORMED: Percutaneous angiogram with AngioJet mechanical thrombolysis and balloon angioplasty of graft and retrograde brachial arteriogram with successful mandaeism of flow in the AV graft. SURGEON: Jamel Khan MD ANESTHESIA: General per Dr. James. REFERRING PHYSICIAN: Dr. Néstor Bautista and Dr. Haines. PREOPERATIVE NOTE: Mr. Lemus is a 57-year-old gentleman with lupus and end-stage renal disease. He has had numerous dialysis access failures. He has thrombophilia. I do not know for certain whether he has lupus anticoagulant. Mr. Britney Lemus is a 57-year-old white male patient with lupus and hypercoagulable state, end-stage renal disease and dependence on hemodialysis, which he conducts at home. He has had many failed fistulas and grafts. He has been dialyzing now for over a year with a left upper extremity HeRO AV graft, which has required a couple of revisions due to skin erosion and underlying graft infection. He just last week had surgery to replace a segment of exposed graft and then suffered a graft thrombosis. He was reopened and eventually discharged to home on Brilinta b.i.d. and Eliquis b.i.d. and a functioning graft. He had been dialyzed with it one time. He got home on Tuesday. He tried to do dialysis at home, Tuesday evening. At first, he and his found clots in the graft and they experienced continuous uncontrollable bleeding from the puncture sites on the arterial limb predominantly. This required a trip to the Emergency Room. He was air evacuated here and admitted to the hospital and with a pressure dressing had no further bleeding. He has been off his Brilinta and Eliquis now for probably 36 hours. He is in need of dialysis and he is brought to the operating room with plans to try to salvage his HeRO AV graft. He has a thrombosed inferior vena cava or at least a thrombosed right common femoral vein with an IVC filter and last time I did put a Tesio catheter in his left femoral vein, but found with contrast injection that he has a left inferior vena cava or prominent hemiazygos venous system with also abdominal wall collaterals. So, I think it will be difficult to place a tunneled dialysis catheter without removing the HeRO catheter from the right internal jugular vein position. DESCRIPTION OF PROCEDURE: With the patient under general anesthesia, he was prepped and draped in a sterile manner. The graft was accessed in the JA segment, directed towards the arterial anastomosis and directed in the direction of blood flow. An AngioJet catheter was used to lyse thrombus within the graft and the patient was systemically heparinized. Contrast injections revealed some narrowing of the JA segment near the arterial anastomosis due to what appeared OPERATIVE REPORT [id number] BRITNEY LEMUS to be adherent organized thrombus. This was treated with balloon angioplasty with an 8-mm diameter balloon. I used the balloon also then to dilate and smoothed the entire length of PTFE. I found no other lesions I thought responsible for graft failure. The 6-Cayman Islander introducer sheaths were removed and hemostasis obtained with 4-0 Prolene uestgg-hy-jcjvy sutures and some gentle direct pressure. The patient was awakened and taken to the recovery room. He was heparinized with 5000 units of heparin in the OR and at this time I am planning to keep him systemically heparinized postop at least until after he has had 1 or 2 dialysis treatments. He does need to go on to dialysis as soon as possible today. Blood loss during the operation was about 20 cc and was unreplaced. Sponges, instruments, and needles were accounted for. No drain was used and no surgical specimen submitted for histopathology. Note, I did use ultrasound to access the graft and I used duplex ultrasound intermittently throughout the procedure to assess flow in the graft. TRANSINT:[id number] Voice Confirmation ID: [id number] DOCUMENT ID: [id number] JAMEL KHAN MD at 1132 CC: BERENICE HAINES MD and NÉSTOR BAUTISTA [id number] DICTATION DATE: 06/05/18 1257 SUBMARINE OPERATOR: 06/05/18 1410 ADM IN [facility] [address] [place] [address]
[2018-06-04 03:10] LABS: BASOPHILS 0.2 % (0-2); EOSINOPHILS 12.6 % (0-7); HEMATOCRIT 24.3 % (42.0-54.0); HEMOGLOBIN 8.2 g/dL (13.5-17.5); LYMPHOCYTES 15.3 % (15-50); MCH 30.9 pg (26.0-34.0); MCHC 33.7 g/dL (31.0-37.0); MCV 91.7 fL (80.0-100.0); MEAN PLATELET VOLUME 9.6 fL (7.4-10.4); MONOCYTES 10.7 % (2-11); NEUTROPHILS 61.2 % (40-80); PLATELET COUNT 81 10x3/uL (130-400); RBC 2.65 10x6/uL (4.20-6.10); RDW 16.5 % (11.5-14.5); WBC 4.6 10x3/uL (4.8-10.8)
[2018-06-04 03:24] LABS: ALBUMIN 3.2 g/dL (3.4-5.0); ANION GAP 22.3 mmol/L (8-16); BILIRUBIN - TOTAL 0.44 mg/dL (0.2-1.3); CALCIUM 8.8 mg/dL (8.5-10.1); CARBON DIOXIDE 21.6 mmol/L (21.0-32.0); POTASSIUM - SERUM 3.9 mmol/L (3.5-5.1); PROTEIN - SERUM 6.1 g/dL (6.4-8.2)
[2018-06-04 03:25] LABS: CREATININE - SERUM 15.7 mg/dL (0.6-1.3)
[2018-06-04] MEDS ORDERED: VIBRAMYCIN50 MG PO (04:26)
[2018-06-04 04:56] VITALS: BP 152/59; BMI 25.5
[2018-06-04 07:56] VITALS: BP 121/38
[2018-06-04 11:53] VITALS: BP 153/56
[2018-06-04 16:14] VITALS: BP 123/46
[2018-06-04 21:14] VITALS: BP 117/40
[2018-06-05 01:15] VITALS: BP 113/47
[2018-06-05 04:45] VITALS: BP 126/47
[2018-06-05 05:05] LABS: BASOPHILS 0.5 % (0-2); EOSINOPHILS 20.5 % (0-7); HEMATOCRIT 26.3 % (42.0-54.0); HEMOGLOBIN 8.7 g/dL (13.5-17.5); IMMATURE GRANULOCYTES 0.3 % (0-5); LYMPHOCYTES 28.6 % (15-50); MCH 29.9 pg (26.0-34.0); MCHC 33.1 g/dL (31.0-37.0); MCV 90.4 fL (80.0-100.0); MEAN PLATELET VOLUME 10.1 fL (7.4-10.4); MONOCYTES 9.7 % (2-11); NEUTROPHILS 40.4 % (40-80); PLATELET COUNT 88 10x3/uL (130-400); RBC 2.91 10x6/uL (4.20-6.10); RDW 17.8 % (11.5-14.5); WBC 3.9 10x3/uL (4.8-10.8)
[2018-06-05 05:27] LABS: ANION GAP 21.8 mmol/L (8-16); CALCIUM 8.8 mg/dL (8.5-10.1); CARBON DIOXIDE 21.8 mmol/L (21.0-32.0); CREATININE - SERUM 17.7 mg/dL (0.6-1.3)
[2018-06-05 05:29] LABS: POTASSIUM - SERUM 4.6 mmol/L (3.5-5.1)
[2018-06-05 08:47] VITALS: BP 146/65
[2018-06-05 12:40] VITALS: BMI 25.4
[2018-06-05 21:46] VITALS: BP 134/65
[2018-06-06 02:34] VITALS: BP 147/64
[2018-06-06 05:20] LABS: ANION GAP 20.7 mmol/L (8-16); CALCIUM 9.1 mg/dL (8.5-10.1); POTASSIUM - SERUM 4.7 mmol/L (3.5-5.1)
[2018-06-06 05:29] LABS: CREATININE - SERUM 12.6 mg/dL (0.6-1.3)
[2018-06-06 05:33] LABS: BASOPHILS 0.3 % (0-2); EOSINOPHILS 0 % (0-7); HEMATOCRIT 29.7 % (42.0-54.0); LYMPHOCYTES 18.3 % (15-50); MCH 29.9 pg (26.0-34.0); MCHC 33.7 g/dL (31.0-37.0); MCV 88.7 fL (80.0-100.0); MONOCYTES 7.7 % (2-11); NEUTROPHILS 73.7 % (40-80); PLATELET COUNT 80 10x3/uL (130-400); RBC 3.35 10x6/uL (4.20-6.10); RDW 16.7 % (11.5-14.5); WBC 3.1 10x3/uL (4.8-10.8)
[2018-06-06 06:34] VITALS: BP 164/63
[2018-06-06 08:20] VITALS: BP 155/56
[2018-06-06 16:10] VITALS: BP 151/72; Ht 185.4 cm; Wt 82.7 kg
[2018-06-06 20:36] VITALS: BP 159/70
[2018-06-07] VITALS: BP 137/48
[2018-06-07 04:00] VITALS: BP 149/56
[2018-06-07 06:23] LABS: BASOPHILS 0.5 % (0-2); EOSINOPHILS 0 % (0-7); IMMATURE GRANULOCYTES 0.2 % (0-5); LYMPHOCYTES 20.8 % (15-50); MCH 29.9 pg (26.0-34.0); MCHC 33.6 g/dL (31.0-37.0); MEAN PLATELET VOLUME 9.8 fL (7.4-10.4); MONOCYTES 13.3 % (2-11); NEUTROPHILS 65.2 % (40-80); PLATELET COUNT 89 10x3/uL (130-400); RDW 16.2 % (11.5-14.5)
[2018-06-07 06:33] LABS: HEMATOCRIT 23.5 % (42.0-54.0); HEMOGLOBIN 7.9 g/dL (13.5-17.5); RBC 2.64 10x6/uL (4.20-6.10); WBC 4.1 10x3/uL (4.8-10.8)
[2018-06-07 06:40] LABS: ANION GAP 16.6 mmol/L (8-16); CALCIUM 9.1 mg/dL (8.5-10.1); CARBON DIOXIDE 26.4 mmol/L (21.0-32.0); CREATININE - SERUM 13.2 mg/dL (0.6-1.3)
[2018-06-07 08:35] VITALS: BP 159/78
[2018-06-07 15:44] VITALS: BP 139/56
[2018-06-07 20:00] VITALS: BP 117/59
[2018-06-08 04:00] VITALS: BP 113/56
[2018-06-08 05:00] LABS: BASOPHILS 0.5 % (0-2); EOSINOPHILS 8.6 % (0-7); HEMATOCRIT 23.8 % (42.0-54.0); HEMOGLOBIN 7.7 g/dL (13.5-17.5); LYMPHOCYTES 28.5 % (15-50); MCH 29.6 pg (26.0-34.0); MCHC 32.4 g/dL (31.0-37.0); MEAN PLATELET VOLUME 10.2 fL (7.4-10.4); MONOCYTES 9.6 % (2-11); NEUTROPHILS 52.8 % (40-80); PLATELET COUNT 96 10x3/uL (130-400); RDW 16.3 % (11.5-14.5); WBC 4.2 10x3/uL (4.8-10.8)
[2018-06-08 05:23] LABS: MCV 91.5 fL (80.0-100.0)
[2018-06-08 05:26] LABS: CALCIUM 8.8 mg/dL (8.5-10.1)
[2018-06-08 08:13] VITALS: BP 143/60
[2018-06-08 11:54] VITALS: BP 136/77
[2018-06-08 15:24] LABS: RNP ANTIBODY <0.2 AI (0.0-0.9); SJOGRENS AB SSA <0.2 AI (0.0-0.9); SJOGRENS AB SSB <0.2 AI (0.0-0.9); SMITH ANTIBODY <0.2 AI (0.0-0.9)
[2018-06-08 17:12] LABS: ANA REFLEX - DBL STRANDED DNA 1 IU/mL (0-9); ANA REFLEX - DIRECT Negative (Negative)
[2018-06-08 21:57] VITALS: BP 113/99
[2018-06-09 01:04] VITALS: BP 92/48
[2018-06-09 03:11] LABS: HEXAGONAL PHASE PHOS 8 sec (0-11); LUPUS - INTERPRETATION Comment: (()); LUPUS - THROMBIN NEUT 19.1 sec (0.0-23.0); LUPUS - THROMBIN TIME >150.0 sec (0.0-23.0); LUPUS - THROMBIN TIME MIX 62.7 sec (0.0-23.0); LUPUS - dRVVT 59.8 sec (0.0-47.0); PTT-LA 82.1 sec (0.0-51.9)
[2018-06-09 04:06] LABS: BASOPHILS 0.2 % (0-2); EOSINOPHILS 0 % (0-7); HEMATOCRIT 25.1 % (42.0-54.0); HEMOGLOBIN 8.4 g/dL (13.5-17.5); IMMATURE GRANULOCYTES 0.2 % (0-5); MCH 30.1 pg (26.0-34.0); MCHC 33.5 g/dL (31.0-37.0); MEAN PLATELET VOLUME 10.6 fL (7.4-10.4); MONOCYTES 8.7 % (2-11); NEUTROPHILS 76.9 % (40-80); PLATELET COUNT 104 10x3/uL (130-400); RBC 2.79 10x6/uL (4.20-6.10); RDW 15.3 % (11.5-14.5); WBC 4.7 10x3/uL (4.8-10.8)
[2018-06-09 04:43] LABS: ANION GAP 14.7 mmol/L (8-16); CALCIUM 9.4 mg/dL (8.5-10.1); CARBON DIOXIDE 28.7 mmol/L (21.0-32.0); POTASSIUM - SERUM 4.4 mmol/L (3.5-5.1)
[2018-06-09 04:44] LABS: CREATININE - SERUM 11.6 mg/dL (0.6-1.3)
[2018-06-09 05:40] VITALS: BP 99/40
[2018-06-09 09:01] VITALS: BP 118/44
[2018-06-09 12:18] VITALS: BP 127/52
[2018-06-09 16:06] VITALS: BP 119/31
[2018-06-09 20:12] VITALS: BP 129/38
[2018-06-10 01:03] VITALS: BP 98/31
[2018-06-10 06:00] VITALS: BP 93/24
[2018-06-10 06:10] LABS: BASOPHILS 0.5 % (0-2); EOSINOPHILS 0.2 % (0-7); HEMATOCRIT 23.2 % (42.0-54.0); HEMOGLOBIN 7.7 g/dL (13.5-17.5); IMMATURE GRANULOCYTES 0.2 % (0-5); MCH 30.6 pg (26.0-34.0); MCHC 33.2 g/dL (31.0-37.0); MEAN PLATELET VOLUME 10.3 fL (7.4-10.4); MONOCYTES 7.6 % (2-11); NEUTROPHILS 68.5 % (40-80); RBC 2.52 10x6/uL (4.20-6.10); RDW 15.6 % (11.5-14.5); WBC 4.3 10x3/uL (4.8-10.8)
[2018-06-10 06:11] LABS: MCV 92.1 fL (80.0-100.0); PLATELET COUNT 129 10x3/uL (130-400)
[2018-06-10 06:33] LABS: ANION GAP 18.8 mmol/L (8-16); CARBON DIOXIDE 25.5 mmol/L (21.0-32.0); POTASSIUM - SERUM 4.3 mmol/L (3.5-5.1)
[2018-06-10 06:51] LABS: CALCIUM 8.8 mg/dL (8.5-10.1)
[2018-06-10 09:00] VITALS: BP 131/68
[2018-06-10 10:44] LABS: APTT 32.7 SECONDS (22.8-39.4)
[2018-06-10 10:45] LABS: INR 3.03 (0.85-1.17); PROTIME 31.1 SECONDS (11.6-15.0)
[2018-06-10 11:00] VITALS: BP 142/50
[2018-06-10 11:46] LABS: BASOPHILS 1.4 % (0-2); EOSINOPHILS 0.9 % (0-7); HEMATOCRIT 27.9 % (42.0-54.0); HEMOGLOBIN 7.9 g/dL (13.5-17.5); IMMATURE GRANULOCYTES 4.1 % (0-5); LYMPHOCYTES 11.3 % (15-50); MCH 25.7 pg (26.0-34.0); MCHC 28.3 g/dL (31.0-37.0); MCV 90.9 fL (80.0-100.0); MEAN PLATELET VOLUME 10.3 fL (7.4-10.4); MONOCYTES 4.1 % (2-11); NEUTROPHILS 78.2 % (40-80); PLATELET COUNT 112 10x3/uL (130-400); RBC 3.07 10x6/uL (4.20-6.10); RDW 15.7 % (11.5-14.5); WBC 3.5 10x3/uL (4.8-10.8)
[2018-06-10 21:13] VITALS: BP 91/49
[2018-06-10 23:50] VITALS: BP 123/51
[2018-06-11 03:45] VITALS: BP 108/50
[2018-06-11 05:21] LABS: BASOPHILS 0.4 % (0-2); EOSINOPHILS 1.7 % (0-7); HEMATOCRIT 27.8 % (42.0-54.0); HEMOGLOBIN 9.1 g/dL (13.5-17.5); IMMATURE GRANULOCYTES 0.2 % (0-5); LYMPHOCYTES 29.2 % (15-50); MCH 29.9 pg (26.0-34.0); MCHC 32.7 g/dL (31.0-37.0); MCV 91.4 fL (80.0-100.0); NEUTROPHILS 60.5 % (40-80); PLATELET COUNT 133 10x3/uL (130-400); RBC 3.04 10x6/uL (4.20-6.10); RDW 15.8 % (11.5-14.5)
[2018-06-11 05:26] LABS: WBC 4.8 10x3/uL (4.8-10.8)
[2018-06-11 05:36] LABS: ANION GAP 11.7 mmol/L (8-16); CALCIUM 8.9 mg/dL (8.5-10.1); CARBON DIOXIDE 30.4 mmol/L (21.0-32.0); POTASSIUM - SERUM 4.1 mmol/L (3.5-5.1)
[2018-06-11 05:38] LABS: CREATININE - SERUM 10.1 mg/dL (0.6-1.3)
[2018-06-11 08:55] LABS: INR 3.01 (0.85-1.17); PROTIME 30.9 SECONDS (11.6-15.0)
[2018-06-11] MEDS ORDERED: COUMADIN5 MG PO (09:02)
[2018-06-11 10:05] VITALS: BP 163/70
[2018-06-12 14:18] LABS: ACLA - IGG AB <9 GPL U/mL (0-14); ACLA - IGM AB <9 MPL U/mL (0-12)
[2018-06-14 19:11] LABS: FACTOR II DNA ANALYSIS Negative (())
== END 2018-06-11 13:36 | disposition home or self-care (01) | DRG 252 ==
LOC: D.ER 02:37 → D.M2 03:08
PROVIDERS: Family Medicine; Internal Medicine Hematology & Oncology; Internal Medicine Nephrology; Internal Medicine Rheumatology; Surgery
PROC: 5A1D70Z Performance of Urinary Filtration, Intermittent, Less than 6 Hours Per Day (ICD-10-PCS; 2018-06-05)
PROC: 03C83ZZ Extirpation of Matter from Left Brachial Artery, Percutaneous Approach (ICD-10-PCS; principal; 2018-06-05 12:00)
PROC: 03783ZZ Dilation of Left Brachial Artery, Percutaneous Approach (ICD-10-PCS; 2018-06-05 12:00)
PROC: 03C83ZZ Extirpation of Matter from Left Brachial Artery, Percutaneous Approach (ICD-10-PCS; 2018-06-10)
PROC: B31N1ZZ Fluoroscopy of Other Upper Arteries using Low Osmolar Contrast (ICD-10-PCS; 2018-06-10)
DX: T82.868A Thrombosis due to vascular prosthetic devices, implants and grafts, initial encounter (principal); N18.6 End stage renal disease; I13.2 Hypertensive heart and chronic kidney disease with heart failure and with stage 5 chronic kidney disease, or end stage renal disease; D68.59 Other primary thrombophilia; D75.82 Heparin induced thrombocytopenia (HIT); Y83.8 Other surgical procedures as the cause of abnormal reaction of the patient, or of later complication, without mention of misadventure at the time of the procedure; T82.838A Hemorrhage due to vascular prosthetic devices, implants and grafts, initial encounter; I50.9 Heart failure, unspecified; Z99.2 Dependence on renal dialysis; M32.9 Systemic lupus erythematosus, unspecified; I73.9 Peripheral vascular disease, unspecified; K21.9 Gastro-esophageal reflux disease without esophagitis; Z86.711 Personal history of pulmonary embolism; Z86.718 Personal history of other venous thrombosis and embolism; Z79.01 Long term (current) use of anticoagulants; Z87.891 Personal history of nicotine dependence

== ENCOUNTER 2018-06-13 07:46 | Inpatient (IN) | payer MEDICARE, BC ==
[~2018-06-13] VITALS: Ht 185.4 cm; Wt 90.7 kg
--- NOTE | ~2018-06-13 | MORECARE ---
CASE MANAGEMENT DISCHARGE SUMMARY PATIENT: BRITNEY LMEUS UNIT: [id number] ADM DATE: 06/13/18 AGE: 57 : 58 SEX: M ROOM/BED: D.2132 AUTHOR: MOHSEN,DOC PHYSICIAN: REFERRING PHYSICIAN: CECE CORTES MD DATE OF SERVICE: 06/14/18 Discharge Plan Patient Name: BRITNEY LEMUS Facility: [facility]:[place] : 1960 Planned Disposition: Home Anticipated Discharge Date: 06/14/18 Discharge Date: 06/14/2018 Expected LOS: 1 Initial Reviewer: [email or web address] Initial Review Date: 06/14/2018 Generated: 06/14/18 5:38 pm Comments DCP- Discharge Planning Updated by [email or web address]: Jacinto Rebollar on 06/14/18 3:[address] Patient Name: BRITNEY LEMUS Admission Status: Elective Accout number: [id number] Admission Date: 06-13-2018 : 1960 Admission Diagnosis: Attending: CECE CORTES Current LOS: 1 Anticipated DC Date: 06-14-2018 Planned Disposition: Home Primary Insurance: MEDICARE A & B Discharge Planning Comments: CM MET WITH PT IN ROOM TO DISCUSS DISCHARGE PLANNING AND NEEDS. PT REPORTS LIVING AT HOME INDEPENDENTLY WITH SPOUSE. PT HAS HOME OXYGEN AND WALKER; PT HAS HOME HEMODIALYSIS EQUIPMENT AND DOES HOME HEMODIALYSIS 5 DAYS PER WEEK WITH ASSISTANCE OF SPOUSE. PT'S EQUIPMENT PROVIDER [facility]. PT HAS NO OUTSIDE SERVICES ASSISTING IN THE HOME. CM DISCUSSED AVAILABILITY OF HOME HEALTH, REHAB SERVICES AND MEDICAL EQUIPMENT. PT DENIES DISCHARGE NEEDS, REPORTS HIS WILL PICK HIM UP FOR DISCHARGE HOME. Pick Up Operator: Jacinto Rebollar DCPIA - Discharge Planning Initial Assessment Updated by [email or web address]: Jacinto Rebollar on 06/14/18 4:33 pm * Is the patient Alert and Oriented? Yes * How many steps to enter\exit or inside your home? NONE * PCP DR. ASH IN [place] * Pharmacy [facility] IN [place] * Preadmission Environment Home with Family * ADLs Independent * Equipment Cane Oxygen Walker * Other Equipment HOME OXYGEN ONLY, DOES NOT USE WALKER AT THIS TIME. [facility] - PROVIDER * List name and contact numbers for known caregivers / representatives who currently or will assist patient after discharge: MICHELLE LEMUS, SPOUSE, * Verbal permission to speak to the caregivers and representatives has been obtained from the patient. N/A * Community resources currently utilized Other * Please name any agencies selected above. HOME HEMODIALYSIS, 5 DAYS PER WEEK * Additional services required to return to the preadmission environment? No * Can the patient safely return to the preadmission environment? Yes * Has this patient been hospitalized within the prior 30 days at any hospital? Yes Patient Name: BRITNEY LEMUS Page [phone] at 1638 All edits/amendments must be made on the electronic document DICTATION DATE: 06/14/181636 PRIMER CHARGER: RAJ 06/14/181636 RPT#: [id number] DC DATE:06/14/18 STATUS: DIS IN [facility] [address] [place] [address] END OF REPORT
--- NOTE | ~2018-06-13 | OP ---
PATIENT NAME: BRITNEY LEMUS MEDICAL RECORD: [id number] :58 LOCATION:D. 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 OPERATION PERFORMED: Removal of the outflow component of the HeRO graft and placement of a right internal jugular HemoSplit catheter under fluoroscopy. SURGEON: Jamel Khan MD ANESTHESIA: General endotracheal per GEOSPATIAL SCIENTIST. PREOPERATIVE NOTE: Mr. Lemus has had a time with recurring graft thromboses. He just went home again Tuesday to find that his graft had thrombosed Tuesday. He came in today to have dialysis access restored. At this point, I do not see any real likelihood they are going to keep HeRO graft open, at least at present. I have recommended and plan to go ahead and remove the outflow device and implant a HemoSplit catheter via his right internal jugular vein which to my knowledge is his only patent internal jugular vein. PROCEDURE: With the patient under general endotracheal anesthesia in supine position, the neck and anterior chest were prepped and draped in sterile manner. I made a transverse incision over the palpable outflow device PTFE junction over the left pectoral muscle and closed the PTFE with a large Hemoclip and transected it distal to the connector. I then exposed and placed a clamp on the outflow device proximal to the connector and then divided the outflow device with alexa. I then freed up this connection portion and removed it entirely and discarded it. We did swab the bed of this for culture and sensitivity and a stat Gram stain. This more because of his history of frequent staphylococcal infections, then because of any other clinical indications this evening. I made a transverse incision across the base of the neck directly over the outflow device and exposed the outflow device with electrocautery dissection. The outflow device there again was clamped and divided and the entire length of the subcutaneous portion was then removed by just simply withdrawing it from the lateral incision. I then placed a pursestring suture of 2-0 Vicryl and inserted a Roadrunner guidewire alongside the intravascular segment of HeRO graft. Under fluoroscopy, I was able to advance the guidewire into the inferior vena cava and then I removed the remaining intravascular segment of the HeRO outflow device and passed the dilator peel-away introducer sheath over the guidewire. I then made a stab incision beneath the clavicle and placed the new 19-cm HemoSplit through that and through a subcutaneous tunnel up to the cervical incision and inserted the catheter through the peel-away sheath and positioned it nicely deeply in the right atrium. The pursestring suture was tied to provide hemostasis and the wound was then subsequently closed with interrupted 3-0 Vicryl and running intracuticular 4-0 Monocryl. The catheter itself was accessed and aspirated. Both limbs aspirated blood easily. They were then OPERATIVE REPORT [id number] BRITNEY LEMUS flushed with saline and hep locked, clamped and capped and the catheter sutured to the skin near the entry site with 2-0 Prolene and sterile dressings applied including a chlorhexidine disc on the new catheter. The left pectoral incision was oozing considerably during the case due, I think, to his Brilinta medication. Electrocautery was used and pressure held with dry gauze and the wound closed in layers with interrupted 3-0 Vicryl. The skin was sealed with Dermabond glue and dressed with Maxorb AG and a pressure dressing applied over that. The patient was then awakened and taken to the recovery room in stable condition. There was minimal blood loss during the procedure, probably less than 20 cc. All sponges, instruments and needles were accounted for. No drain was used and no surgical specimen was submitted for histopathology, although I did submit swabs for stat Gram stain and culture and sensitivity, aerobic and anaerobic from the bed of the HeRO outflow device. PLAN: If the patient does not have any problems with bleeding this evening, he does not need an urgent dialysis, so I suppose it is okay for him to go home as he wishes and do home dialysis tomorrow. I think, if he is having bleeding or requiring much in the way of nursing care and attention then he probably should stay in the hospital overnight at least. He can return to see me at [facility] on a Tuesday in 2 or 3 weeks and he needs to follow up with his substance abuse technician as well. Hopefully, he can do at all on the same trip as he drives from [place]. He can resume his Coumadin, his usual daily dose of 5 mg starting . He is to discontinue the Brilinta completely. He will need to have PT with INR checked weekly as he has done in the past and is very familiar with that routine. TRANSINT:[id number] Voice Confirmation ID: [id number] DOCUMENT ID: [id number] JAMEL KHAN MD at 1657 CC: CECE CORTES MD and NÉSTOR CHONG [id number] DICTATION DATE: 06/13/181753 LEATHER FITTER: 06/13/182104 DIS IN 06/14/18 [id number] [place] [address]
[2018-06-13 09:43] LABS: BASOPHILS 0.4 % (0-2); EOSINOPHILS 11.8 % (0-7); HEMATOCRIT 29.4 % (42.0-54.0); HEMOGLOBIN 9.5 g/dL (13.5-17.5); IMMATURE GRANULOCYTES 0.2 % (0-5); LYMPHOCYTES 19.1 % (15-50); MCH 30.1 pg (26.0-34.0); MCHC 32.3 g/dL (31.0-37.0); MEAN PLATELET VOLUME 9.6 fL (7.4-10.4); MONOCYTES 12.9 % (2-11); NEUTROPHILS 55.6 % (40-80); PLATELET COUNT 140 10x3/uL (130-400); RBC 3.16 10x6/uL (4.20-6.10); RDW 15.6 % (11.5-14.5); WBC 5.4 10x3/uL (4.8-10.8)
[2018-06-13 09:53] LABS: ANION GAP 17.9 mmol/L (8-16); CALCIUM 9.2 mg/dL (8.5-10.1); CARBON DIOXIDE 25.7 mmol/L (21.0-32.0); CREATININE - SERUM 14.4 mg/dL (0.6-1.3); POTASSIUM - SERUM 4.6 mmol/L (3.5-5.1)
[2018-06-13 09:57] LABS: INR 1.77 (0.85-1.17); PROTIME 20.3 SECONDS (11.6-15.0)
[2018-06-13 11:09] VITALS: BP 187/71; Ht 185.4 cm; Wt 90.7 kg
[2018-06-13 11:48] VITALS: BP 160/45
[2018-06-13 14:58] VITALS: BP 128/42
[2018-06-13 21:41] VITALS: BP 155/67
[2018-06-14 01:16] VITALS: BP 141/67
[2018-06-14 05:50] VITALS: BP 136/60
[2018-06-14 09:17] VITALS: BP 247/98
== END 2018-06-14 12:44 | disposition home or self-care (01) | DRG 252 ==
LOC: D.MS 07:46 → D.M2 07:52
PROVIDERS: Surgery
PROC: 0JH63XZ Insertion of Tunneled Vascular Access Device into Chest Subcutaneous Tissue and Fascia, Percutaneous Approach (ICD-10-PCS; 2018-06-13)
PROC: 02H633Z Insertion of Infusion Device into Right Atrium, Percutaneous Approach (ICD-10-PCS; 2018-06-13)
PROC: B2141ZZ Fluoroscopy of Right Heart using Low Osmolar Contrast (ICD-10-PCS; 2018-06-13)
PROC: 05PY0JZ Removal of Synthetic Substitute from Upper Vein, Open Approach (ICD-10-PCS; principal; 2018-06-13 13:30)
PROC: 5A1D70Z Performance of Urinary Filtration, Intermittent, Less than 6 Hours Per Day (ICD-10-PCS; 2018-06-13 13:30)
DX: T82.858A Stenosis of other vascular prosthetic devices, implants and grafts, initial encounter (principal); N18.6 End stage renal disease; I13.2 Hypertensive heart and chronic kidney disease with heart failure and with stage 5 chronic kidney disease, or end stage renal disease; Y83.8 Other surgical procedures as the cause of abnormal reaction of the patient, or of later complication, without mention of misadventure at the time of the procedure; I50.9 Heart failure, unspecified; Z99.2 Dependence on renal dialysis; I25.10 Atherosclerotic heart disease of native coronary artery without angina pectoris; I73.9 Peripheral vascular disease, unspecified; K21.9 Gastro-esophageal reflux disease without esophagitis; D64.9 Anemia, unspecified

== ENCOUNTER → 2018-10-02 08:52 | Outpatient (CLI) | payer MEDICARE, BC ==
[2018-06-13 11:09] VITALS: BMI 24.9
== END | disposition home or self-care (01) ==
LOC: D.CT 08:52
PROVIDERS: ATTEND Internal Medicine Nephrology
DX: N18.6 End stage renal disease (principal); I73.9 Peripheral vascular disease, unspecified

== ENCOUNTER → 2018-10-05 08:10 | Outpatient (CLI) | payer MEDICARE, BC ==
[2018-06-13 11:09] VITALS: BMI 24.9
== END | disposition home or self-care (01) ==
LOC: D.CT 08:10
PROVIDERS: ATTEND Internal Medicine Nephrology
DX: N18.6 End stage renal disease (principal); I73.9 Peripheral vascular disease, unspecified

== ENCOUNTER 2018-10-27 05:54 | Inpatient (IN) | payer MEDICARE, BC ==
[~2018-10-27] VITALS: Ht 185.4 cm; Wt 82.7 kg
--- NOTE | ~2018-10-27 | OP ---
PATIENT NAME: BRITNEY BHATT MEDICAL RECORD: [id number] :58 LOCATION:D. 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 PREOPERATIVE NOTE: Mr. Bhatt is a 58-year-old white male patient with end-stage renal disease on chronic hemodialysis, has severe thrombophilia and propensity to staphylococcal infections and is presently catheter dependent dialyzing with a right internal jugular HemoSplit catheter. He has no access on the left. 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 He needs another long-term access and is willing to undergo yet another HeRO grafting placement and he will today have a right internal jugular HeRO implanted and this will be anastomosed to or take origin from the femoral artery on the left. DESCRIPTION OF OPERATION: Under general endotracheal anesthesia, the patient was positioned and prepped and draped in sterile manner. I made an incision at the base of the neck on the right and exposed the HemoSplit catheter clamped and divided it. I then excised the catheter exit site and removed the external portion of the catheter along with the Dacron felt cuff and these fragments were discarded. I removed the intravascular segment of HemoSplit catheter over a guidewire under fluoroscopy and with an angled glide catheter and guidewire placed the wire in the inferior vena cava and then did a wire exchange placing an Amplatz wire. I placed a 7-Malagasy introducer and put a 3-0 Vicryl pursestring suture around the venous access, contrast injection demonstrated very tight stenosis of the proximal internal jugular vein and distal brachiocephalic vein. These were then successfully dilated with an 8 mm x 40 mm angioplasty balloon and the followup angiogram demonstrated mild to minimal improvement there. I subsequently pushed dilators over a wire through this area of stenosis and then a dilator peel-away introducer was inserted. The HeRO venous outflow device was then inserted through that and the peel-away sheath removed. The tip of the catheter was positioned in the right atrium and the access device flushed with heparinized saline. It was then brought through a subcutaneous tunnel to a counter incision over the left chest. It was their attached to an Acuseal 6-mm graft using the special HeRO attachment device. Another counter incision was made on the left flank and the new 50 cm long Acuseal graft was pulled through subcutaneous tunnel to the counterincision and then to the groin where the common femoral artery and branches had been exposed to an oblique incision. The wounds were all treated with gentamicin solution and irrigated with gentamicin solution periodically. The patient was given 2000 OPERATIVE REPORT [id number] BRITNEY BHATT units of heparin systemically and the vessels were occluded with Silastic loops and a Francisco J vascular clamp. The superficial femoral artery was opened on the anterior surface just below the common femoral bifurcation and the new Acuseal graft was anastomosed end of graft to side of artery with running 6-0 Prolene after the graft was appropriately shortened and beveled. When completed, the suture line was treated with BioGlue, and after 2 minutes of curing time, the occluding clamps and loops were released, excellent flow developed immediately within the new HeRO and there was excellent pulsatile Doppler flow within the common femoral, deep femoral and superficial femoral arteries above and below the new anastomosis. No heparin reversal was performed. The catheter position was rechecked with fluoroscopy and to be good in the right atrium. The incisions were then infiltrated with 0.25% Marcaine without epinephrine and closed with interrupted inverted 3-0 Vicryl and then running intracuticular 4-0 Monocryl. The incisions were sealed further with Dermabond glue and dressed with Maxorb Ag, Tegaderm, and Cavilon skin prep. The patient was awakened and extubated and taken to the recovery room. Blood loss during the procedure was less than 50 cc. None was replaced. Sponges, instruments, and needles were accounted for. No drain was used and no surgical specimens were submitted for histopathology. The patient was given vancomycin 1 gram intraoperatively. PLAN: Hopefully, the patient can wait 48 or 72 hours before he has dialysis through his new Acuseal graft and then Acuseal protocol should be used for at least 2 weeks. I believe he should stay in the hospital until we see that he can be successfully dialyzed with his new graft and we will need to resume anticoagulation preferably I believe with Eliquis and aspirin and this I think should be done before he is discharged. I will continue him on maintenance therapy with doxycycline 50 mg daily, and recommend that he take it daily, Hibiclens bath or shower and also that his nasal passages are treated once weekly with 10% povidone Iodine nasal swabs. I will be seeing him back and following him in my office after discharge from the hospital next week. TRANSINT:[id number] Voice Confirmation ID: [id number] DOCUMENT ID: [id number] cc: [facility], [phone] JAMEL KHAN MD CC: NÉSTOR CHONG [id number] DICTATION DATE: 10/27/18 1341 PROTECTION ANALYST: 10/27/182120 ADM IN [facility] [address] [place] [address]
[2018-10-27 06:56] LABS: INR 1.05 (0.85-1.17); PROTIME 13.2 SECONDS (11.6-15.0)
[2018-10-27 07:02] LABS: ANION GAP 16.4 mmol/L (8-16); CALCIUM 9.8 mg/dL (8.5-10.1); CARBON DIOXIDE 25.2 mmol/L (21.0-32.0); POTASSIUM - SERUM 4.6 mmol/L (3.5-5.1)
[2018-10-27 07:32] LABS: BASOPHILS 0.3 % (0-2); EOSINOPHILS 5.1 % (0-7); HEMOGLOBIN 12.4 g/dL (13.5-17.5); LYMPHOCYTES 25.8 % (15-50); MCH 31.9 pg (26.0-34.0); MCHC 31.8 g/dL (31.0-37.0); MCV 100.3 fL (80.0-100.0); MEAN PLATELET VOLUME 10.4 fL (7.4-10.4); MONOCYTES 11.7 % (2-11); NEUTROPHILS 57.1 % (40-80); PLATELET COUNT 115 10x3/uL (130-400); RBC 3.89 10x6/uL (4.20-6.10); RDW 17.1 % (11.5-14.5); WBC 3.9 10x3/uL (4.8-10.8)
[2018-10-27] MEDS ORDERED: LOVENOX80 MG/0.8 SC (07:37)
[2018-10-27] MEDS ORDERED: CALCITRIOL (07:44)
[2018-10-27] MEDS ORDERED: IRON PO (07:45)
[2018-10-27] MEDS ORDERED: CYCLOBENZAPRINE10 MG PO (07:46)
[2018-10-27 08:11] VITALS: BP 171/71; BMI 24.7
--- NOTE | 2018-10-27 13:22 | NUR ---
DRESSING TO RT UPPER CHEST FOR HEMOSPLIT REMOVAL SITE MARKED
[2018-10-27 14:14] VITALS: BP 159/70; BMI 24.0
--- NOTE | 2018-10-27 19:22 | NUR ---
PT RESTING IN BED WITH EYES CLOSED. RR EVEN AND UNLABORED. DRESSINGS TO FROM HEROGRAFT ON CHEST DOWN TO GROIN C/D/I. PT DENIES ANY PAIN OR NEEDS AT THIS TIME. WILL CONTINUE TO MONITOR.
[2018-10-27 20:00] VITALS: BP 170/68
[2018-10-27 23:27] LABS: HEMATOCRIT 34.3 % (42.0-54.0); HEMOGLOBIN 10.9 g/dL (13.5-17.5); MCHC 31.8 g/dL (31.0-37.0); MCV 100.6 fL (80.0-100.0); MEAN PLATELET VOLUME 10.2 fL (7.4-10.4); PLATELET COUNT 100 10x3/uL (130-400); RBC 3.41 10x6/uL (4.20-6.10); RDW 17.4 % (11.5-14.5)
[2018-10-27 23:56] LABS: BASOPHILS 1 % (0-2); EOSINOPHILS 1 % (0-7); LYMPHOCYTES 35 % (15-50); MONOCYTES 4 % (2-11); NEUTROPHILS 59 % (40-80); PLATELET ESTIMATE DECREASED; PLATELET MORPHOLOGY GIANT PLTS PRESENT
[2018-10-28 00:06] VITALS: BP 151/66
--- NOTE | 2018-10-28 01:16 | NUR ---
PT RESTING IN BED WITH EYES CLOSED. RR EVEN AND UNLABORED. NO S/S OF DISTRESS. BED LOW CALL LIGHT WITHIN REACH. WILL CONTINUE TO MONITOR.
--- NOTE | 2018-10-28 02:39 | NUR ---
I have reviewed this patient and I concur with the Shift Assessment completed by the Licensed Practical Nurse today this shift.
[2018-10-28 04:00] VITALS: BP 141/61
[2018-10-28 05:09] LABS: BASOPHILS 0.2 % (0-2); EOSINOPHILS 4.9 % (0-7); HEMATOCRIT 34.2 % (42.0-54.0); HEMOGLOBIN 10.7 g/dL (13.5-17.5); LYMPHOCYTES 13.2 % (15-50); MCH 31.7 pg (26.0-34.0); MCHC 31.3 g/dL (31.0-37.0); MCV 101.2 fL (80.0-100.0); MEAN PLATELET VOLUME 10.2 fL (7.4-10.4); MONOCYTES 14.2 % (2-11); NEUTROPHILS 67.5 % (40-80); PLATELET COUNT 110 10x3/uL (130-400); RBC 3.38 10x6/uL (4.20-6.10); RDW 17.6 % (11.5-14.5); WBC 4.1 10x3/uL (4.8-10.8)
[2018-10-28 05:17] LABS: INR 1.23 (0.85-1.17)
--- NOTE | 2018-10-28 07:15 | NUR ---
PT ASLEEP, DID NOT WAKE I ENTERED. DID NOT FURTHER DISTURB AT THIS TIME. CL IN REACH. SRX2.
[2018-10-28 09:51] VITALS: BP 157/98
[2018-10-28 11:40] VITALS: Ht 185.4 cm; Wt 82.7 kg
[2018-10-28 13:11] VITALS: BP 154/70
--- NOTE | 2018-10-28 14:13 | NUR ---
I have reviewed this patient and I concur with the Shift Assessment completed by the Licensed Practical Nurse today this shift.
[2018-10-28 17:40] VITALS: BP 154/60
--- NOTE | 2018-10-28 20:00 | NUR ---
RECIEVED BEDSIDE REPORT. ROUNDS COMPLETED. VSS, AAOX4. NO S/S OF RR DISTRESS. PT RESTING IN BED WITH EYES OPEN. STATES HIS PAIN IS 7/10. PAIN MEDS GIVEN ALONGSIDE OTHER MEDS. PT DENIES ANY FURTHER NEEDS FOR COMFORT CARE. WILL CTM. CL IN REACH, BED IN LOW, SR UP X2.
[2018-10-29] VITALS (7 sets, daily range): BP systolic 150–191; BP diastolic 47–71
[2018-10-29 04:51] LABS: BASOPHILS 0 % (0-2); EOSINOPHILS 5.7 % (0-7); HEMOGLOBIN 10.3 g/dL (13.5-17.5); LYMPHOCYTES 22.7 % (15-50); MCH 31.6 pg (26.0-34.0); MCHC 31.2 g/dL (31.0-37.0); MCV 101.2 fL (80.0-100.0); MEAN PLATELET VOLUME 10.1 fL (7.4-10.4); MONOCYTES 15.4 % (2-11); NEUTROPHILS 56.2 % (40-80); PLATELET COUNT 104 10x3/uL (130-400); RBC 3.26 10x6/uL (4.20-6.10); RDW 17.8 % (11.5-14.5); WBC 3.8 10x3/uL (4.8-10.8)
[2018-10-29 05:23] LABS: INR 1.26 (0.85-1.17); PROTIME 15.2 SECONDS (11.6-15.0)
--- NOTE | 2018-10-29 08:20 | NUR ---
PT ASLEEP, DID NOT WAKE I ENTERED, DID NOT FURTHER DISTURB AT THIS TIME. CL IN REACH. SRX2.
--- NOTE | 2018-10-29 14:49 | NUR ---
I have reviewed this patient and I concur with the Shift Assessment completed by the Licensed Practical Nurse today this shift.
--- NOTE | 2018-10-29 17:51 | NUR ---
PT LYING IN BED, NO COMPLAINTS OR CONCNERS, CL IN REACH SRX2.
--- NOTE | 2018-10-29 20:30 | NUR ---
RECIEVED BEDSIDE REPORT. ROUNDS COMPLETED. VSS, AA0X4. NO S/S OF RR DISTRESS. ASSESSED PT LEFT GROIN TO RIGHT NECK. DRESSING C/D/I, PALPABLE THRILL AND AUDIBLE BRUIT. PEDAL PULSES ALSO PALPABLE/BOUNDING. PT CURRENTLY RESTING IN BEDM, MEDS GIVEN. PT DENIES ANY FURTHER NEEDS FOR COMFORT CARE AT THIS TIME. WILL CPOC. CL IN REACH, BED IN LOW, SR UP X2.
[2018-10-30 01:51] VITALS: BP 160/52
--- NOTE | 2018-10-30 04:12 | NUR ---
REASSESED PT LEFT GROIN TO RIGHT NECK. DRESSINGS C/D/I. PALPABLE THRILL AND BRUIT ON AUSCULTATION NOTED. PT RESTING IN BED WITH EYES OPEN, DENEIS ANY FURTHER NEED AT THIS THIS. WILL CTM.
--- NOTE | 2018-10-30 04:42 | NUR ---
I have reviewed this patient and I concur with the Shift Assessment completed by the Licensed Practical Nurse today this shift.
[2018-10-30 05:37] LABS: BASOPHILS 0 % (0-2); HEMATOCRIT 31.7 % (42.0-54.0); IMMATURE GRANULOCYTES 0.3 % (0-5); LYMPHOCYTES 21.1 % (15-50); MCH 31.7 pg (26.0-34.0); MCHC 31.5 g/dL (31.0-37.0); MCV 100.6 fL (80.0-100.0); MEAN PLATELET VOLUME 10.1 fL (7.4-10.4); MONOCYTES 14.7 % (2-11); NEUTROPHILS 58.9 % (40-80); PLATELET COUNT 108 10x3/uL (130-400); RBC 3.15 10x6/uL (4.20-6.10); RDW 17.6 % (11.5-14.5); WBC 3.8 10x3/uL (4.8-10.8)
[2018-10-30 05:41] VITALS: BP 170/52
[2018-10-30 05:45] LABS: INR 1.44 (0.85-1.17)
--- NOTE | 2018-10-30 08:18 | NUR ---
AM ROUNDS COMPLETED. INTRODUCED MYSELF TO PT PRIMARY RN FOR TODAYS SHIFT. PT IS A&O SITTING UP IN BED EATING BREAKFAST. SHIFT ASSESSMENT COMPLETED. NOTED STRONG BRUIT AND THRILL IN PTS ABDOMEN WHERE HERO GRAFT CROSSES. PT IS SUPPOSE TO HAVE DIALYSIS TODAY AND THEN BE DISCHARGED. AT BEDSIDE ASSESSING PT. PT DENIES ANY PAIN OR NEEDS AT THIS TIME. CL IN REACH, WILL CTM.
[2018-10-30 08:23] VITALS: BP 149/66
--- NOTE | 2018-10-30 09:02 | NUR ---
CALLED [facility] WITH DIALYSIS TO ADVISE PT NEEDS EARLY DIALYSIS WITH ACCUSEAL PROTOCOL AND WILL DC AFTER DIALYSIS
[2018-10-30] MEDS ORDERED: LOVENOX40 MG/0.4 SC (09:26)
--- NOTE | 2018-10-30 10:49 | NUR ---
DIALYSIS CALLED FOR PT. PT IS READY TO GO DOWN. NO CURRENT NEEDS. WILL CTM.
--- NOTE | 2018-10-30 15:28 | NUR ---
DISCHARGE TEACHING PROVIDED AND PAPERS SIGNED. PT VERBALIZED UNDERSTANDING AND DENIES ANY QUESTIONS OR CONCERNS. D/C L.FA PIV WITH CATHETER TIP FULLY INTACT. PT IS GETTING DRESSED AND WAITING ON HIS FOR TRANSPORTATION. NO CURRENT NEEDS. WILL CTM.
--- NOTE | 2018-10-30 15:43 | MORECARE ---
CASE MANAGEMENT DISCHARGE SUMMARY PATIENT: BRITNEY LEMUS UNIT: [id number] ADM DATE: 10/28/18 AGE: 58 : 58 SEX: M ROOM/BED: D.2106 AUTHOR: LIONEL CONNOLLY PHYSICIAN: REFERRING PHYSICIAN: MARTÍNEZ CHONG MD DATE OF SERVICE: 10/30/18 Discharge Plan Patient Name: BRITNEY LEMUS Facility: [facility]:[place] : 1960 Planned Disposition: Home Anticipated Discharge Date: 10/30/18 Discharge Date: Expected LOS: 2 Initial Reviewer: [email or web address] Initial Review Date: 10/30/2018 Generated: 10/30/18 4:43 pm Coverage Notice Reviewer: [email or web address] - Jacinto Rebollar Notice Issued Date-Time: 10/30/2018 14:20 Notice Type: IM Discharge Notice Notice Delivered To: Family Member Relationship to Patient: Spouse Cupola Tapper Name: MICHELLE LEMUS Delivery Method: HAND - Hand Delivered Anna Days: Prior Verbal Notification: Recipient Understood Notice: Yes Recipient Signature: Yes Med Rec Note Co-signed by Attending: Coverage Notice Comment: Patient Name: BRITNEY LEMUS Page [id number] at 1543 All edits/amendments must be made on the electronic document DICTATION DATE: 10/30/181541 SOLID STATE TESTER: RAJ 10/30/18 154 RPT#: [id number] DC DATE: STATUS: ADM IN [facility] [address] [place] [address] END OF REPORT
--- NOTE | 2018-10-30 15:52 | MORECARE ---
CASE MANAGEMENT DISCHARGE SUMMARY PATIENT: BRITNEY LEMUS UNIT: [id number] ADM DATE: 10/28/18 AGE: 58 : 58 SEX: M ROOM/BED: D.2106 AUTHOR: LIONEL CONNOLLY PHYSICIAN: REFERRING PHYSICIAN: MARTÍNEZ CHONG MD DATE OF SERVICE: 10/30/18 Discharge Plan Patient Name: BRITNEY LEMUS Facility: [facility]:[place] : 1960 Planned Disposition: Home Anticipated Discharge Date: 10/30/18 Discharge Date: Expected LOS: 2 Initial Reviewer: [email or web address] Initial Review Date: 10/30/2018 Generated: 10/30/18 4:52 pm Comments DCP- Discharge Planning Updated by [email or web address]: Jacinto Rebollar on 10/30/18 2:[address] Patient Name: BRITNEY LEMUS Admission Status: Elective Accout number: [id number] Admission Date: 10-28-2018 : 1960 Admission Diagnosis: Attending: MARTÍNEZ CHONG Current LOS: 2 Anticipated DC Date: 10-30-2018 Planned Disposition: Home Primary Insurance: MEDICARE A & B Discharge Planning Comments: CM MET WITH PT IN ROOM TO DISCUSS DISCHARGE PLANNING AND NEEDS. BRITNEY LEMUS provided verbal consent to discuss current and ongoing needs with/in the presence of: SPOUSE, GUSTAVOE. PT REPORTS LIVING AT HOME INDEPENDENTLY WITH SPOUSE. PT HAS CANE, WALKER AND HOME OXYGEN FROM [facility], [place]. PT HAS NO OUTSIDE SERVICES ASSISTING IN THE HOME. CM DISCUSSED AVAILABILITY OF HOME HEALTH, REHAB SERVICES AND MEDICAL EQUIPMENT. PT DENIES DISCHARGE NEEDS, REPORTS HIS IS HERE TO PICK HIM UP FOR DISCHARGE HOME. PT'S SPOUSE REPORTS THAT PT'S DAUGHTER IS A NURSE AND CAN ASSIST AT HOME IF NEEDED. PT DOES HOME DIALYSIS 5 DAYS PER WEEK AT HOME. IMPORTANT MESSAGE FROM MEDICARE PROVIDED AND EXPLAINED. Director Product Development: Jacinto Rebollar DCPIA - Discharge Planning Initial Assessment Updated by [email or web address]: Jacinto Rebollar on 10/30/18 3:46 pm * Is the patient Alert and Oriented? Yes * How many steps to enter\exit or inside your home? NONE * PCP DR. ASH IN [place] DR. MARTÍNEZ CHONG, NEPHROLOGY * Pharmacy [facility] IN [place] * Preadmission Environment Home with Family * ADLs Independent * Equipment Cane Oxygen Walker * Other Equipment HOME OXYGEN ONLY, DOES NOT USE WALKER NOW [facility] - PROVIDER * List name and contact numbers for known caregivers / representatives who currently or will assist patient after discharge: MICHELLE LEMUS, SPOUSE, * Verbal permission to speak to the caregivers and representatives has been obtained from the patient. Yes * Community resources currently utilized Other * Please name any agencies selected above. HOME HEMODIALYSIS, 5 DAYS PER WEEK * Additional services required to return to the preadmission environment? No * Can the patient safely return to the preadmission environment? Yes * Has this patient been hospitalized within the prior 30 days at any hospital? No Coverage Notice Reviewer: [id number] Gil Rebollar Notice Issued Date-Time: 10/30/2018 14:20 Notice Type: IM Discharge Notice Notice Delivered To: Family Member Relationship to Patient: Spouse Office Rn Name: MICHELLE LEMUS Delivery Method: HAND - Hand Delivered Anna Days: Prior Verbal Notification: Recipient Understood Notice: Yes Recipient Signature: Yes Med Rec Note Co-signed by Attending: Coverage Notice Comment: Last DP export: 10/30/18 2:43 pm Patient Name: BRITNEY LEMUS Page 39037 at 1552 All edits/amendments must be made on the electronic document DICTATION DATE: 10/30/181551 PHARMACY TEACHER: RAJ 10/30/181551 RPT#: [id number] DC DATE: STATUS: ADM IN [facility] [address] [place] [address] END OF REPORT
== END 2018-10-30 17:20 | disposition home or self-care (01) | DRG 252 ==
LOC: D.OPS 05:54 → D.M2 13:04 → D.OPS 13:28 → D.M2 10-28 23:44 → D.OPS 10-28 23:44 → D.M2 10-28 23:44 → D.OPS 10-28 23:44 → D.M2 10-30 17:20
PROVIDERS: Surgery; ADMIT Internal Medicine Nephrology; ATTEND Internal Medicine Nephrology
PROC: 03150JV Bypass Right Axillary Artery to Superior Vena Cava with Synthetic Substitute, Open Approach (ICD-10-PCS; principal; 2018-10-27 10:00)
PROC: 037Y3ZZ Dilation of Upper Artery, Percutaneous Approach (ICD-10-PCS; 2018-10-27 10:00)
PROC: B5181ZZ Fluoroscopy of Superior Vena Cava using Low Osmolar Contrast (ICD-10-PCS; 2018-10-27 10:00)
PROC: 5A1D70Z Performance of Urinary Filtration, Intermittent, Less than 6 Hours Per Day (ICD-10-PCS; 2018-10-30)
DX: T82.858A Stenosis of other vascular prosthetic devices, implants and grafts, initial encounter (principal); N18.6 End stage renal disease; I13.2 Hypertensive heart and chronic kidney disease with heart failure and with stage 5 chronic kidney disease, or end stage renal disease; D68.59 Other primary thrombophilia; I87.1 Compression of vein; Y83.8 Other surgical procedures as the cause of abnormal reaction of the patient, or of later complication, without mention of misadventure at the time of the procedure; I50.9 Heart failure, unspecified; I25.10 Atherosclerotic heart disease of native coronary artery without angina pectoris; M32.9 Systemic lupus erythematosus, unspecified; K21.9 Gastro-esophageal reflux disease without esophagitis; Z87.891 Personal history of nicotine dependence; D64.9 Anemia, unspecified

== ENCOUNTER 2019-01-04 08:52 | Day surgery (SDC) | payer MEDICARE ==
[~2019-01-04] VITALS: Ht 185.4 cm; Wt 82.1 kg
--- NOTE | ~2019-01-04 | OP ---
PATIENT NAME: BRITNEY LEMUS MEDICAL RECORD: [id number] :58 LOCATION:D.OPS ADMISSION DATE: SURGEON: JAMEL KHAN MD DATE OF OPERATION: 01/04/2019 REFERRING PHYSICIAN: Néstor Bautista MD PREOPERATIVE DIAGNOSIS: Thrombosed HeRO AV graft. POSTOPERATIVE DIAGNOSIS: Thrombosed HeRO AV graft. OPERATION PERFORMED: Percutaneous mechanical thrombolysis and thrombectomy with fistulogram and with selective left femoral arteriogram. SURGEON: Jamel Khan MD ANESTHESIA: General with LMA per PLANT NURSERY WORKER. PREOPERATIVE NOTE: This is the first time that Mr. 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 His prothrombin time/INR was 2.77 this morning, his present dose of Coumadin alternating 5 and 7.5 mg. He is brought to the operating room for mechanical thrombolysis and angiography and indicated procedures. Under anesthesia in supine position, the patient was prepped and draped in sterile manner. The PTFE segment of his HeRO graft was accessed twice in opposing directions near the mid section of the total length of the access. Over a Glidewire, an AngioJet catheter was used to lyse thrombus in the venous outflow device and in the venous end of the PTFE. The patient was simultaneously given 5000 units of heparin systemically. Contrast injection revealed no obstructions or stenoses. I then used a guidewire and the same AngioJet catheter to lyse clot in the arterial limb down to the femoral artery anastomosis. I passed an angled glide catheter over that guidewire through the arterial limb and anastomosis and up into the aorta. The catheter was advanced into the external iliac artery and contrast injection revealed no evidence of embolism and some flow of contrast around thrombus in the arterial anastomosis. The plug was then removed with a 4-Bengali Francisco J embolectomy catheter and excellent flow restored in the AV graft. I did not identify a specific etiology for this episode of thrombosis. With good flow established in the fistula, the introducers were removed and hemostasis obtained with gentle pressure and [id number] 4-0 Prolene sutures. Sterile dressings of Ultrafoam, Tegaderm, and Cavilon skin prep were applied, and the patient awakened and taken to the recovery room. Blood loss about 50 cc, was unreplaced. Sponges, instruments, and needles were accounted for and no drain was used and no surgical specimen submitted for histopathology. PLAN: I plan for the patient to go home and do home dialysis this afternoon. He will be scheduled to come back to [facility] for a followup fistulogram in the next 3-5 or 6 weeks and he will continue his same medications, diet and dialysis schedule. For now, he will continue on the same Coumadin dosage 5 mg daily with 7.5 mg 3 days a week until that is changed by Dr. Bautista TRANSINT:[id number] Voice Confirmation ID: [id number] DOCUMENT ID: [id number] OPERATIVE REPORT [id number] BRITNEY LEMUS JAMES MD CC: NÉSTOR BAUTISTA [id number] DICTATION DATE: 01/04/19 1357 RN CHARGE: 01/04/19 1515 [id number] [place] [address]
[~2019-01-04 08:52] MED LIST changes: +CALCITRIOL; +CYCLOBENZAPRINE10 MG PO; +IRON PO; +LOVENOX40 MG/0.4 SC; +LOVENOX80 MG/0.8 SC
[2019-01-04 09:59] LABS: CALCIUM 9.9 mg/dL (8.5-10.1); CARBON DIOXIDE 23.1 mmol/L (21.0-32.0); CREATININE - SERUM 11.2 mg/dL (0.6-1.3)
[2019-01-04 10:05] LABS: BASOPHILS 0.5 % (0-2); EOSINOPHILS 7.1 % (0-7); HEMATOCRIT 30.5 % (42.0-54.0); HEMOGLOBIN 9.9 g/dL (13.5-17.5); IMMATURE GRANULOCYTES 0.5 % (0-5); LYMPHOCYTES 26.8 % (15-50); MCH 31.3 pg (26.0-34.0); MCHC 32.5 g/dL (31.0-37.0); MCV 96.5 fL (80.0-100.0); MEAN PLATELET VOLUME 9.8 fL (7.4-10.4); MONOCYTES 11.7 % (2-11); NEUTROPHILS 53.4 % (40-80); PLATELET COUNT 111 10x3/uL (130-400); RBC 3.16 10x6/uL (4.20-6.10); RDW 16.2 % (11.5-14.5); WBC 4.1 10x3/uL (4.8-10.8)
[2019-01-04 10:09] LABS: INR 2.77 (0.85-1.17); PROTIME 28.5 SECONDS (11.6-15.0)
[2019-01-04 10:25] LABS: ANION GAP 22.3 mmol/L (8-16); POTASSIUM - SERUM 5.4 mmol/L (3.5-5.1)
[2019-01-04 11:24] VITALS: Ht 185.4 cm; Wt 82.1 kg
--- NOTE | 2019-01-04 14:15 | NUR ---
NOTIFIED BJ W/ANESTHESIA OF B/P. NO NEW ORDERS AT THIS TIME.
--- NOTE | 2019-01-04 15:54 | NUR ---
SPOKE BY PHONE WITH GEENA MCCULLOUGH APN FLUID JET CUTTER OPERATOR FOR RENAL SERVICE AND NOTIFIED GEENA MCCULLOUGH OF PATIENT'S SURGERY TODAY AND PLAN FOR PATIENT TO GO HOME AND DO DIALYSIS TONIGHT OR TOMORROW AND GEENA MCCULLOUGH NOTIFIED THAT PATIENT STATES HE WILL DO IT TOMORROW AND NOT TONIGHT DUE TO THE LATE HOUR. ORDER RECEIVED AND NOTED FOR CLONIDINE PO AND OK PER GEENA MCCULLOUGH APN AND DR CORTES FOR PATIENT TO BE DISCHARGED TODAY ACCORDING TO THESE PLANS
--- NOTE | 2019-01-04 16:30 | NUR ---
PATIENT DRESSED IN PERSONAL CLOTHING, AMBULATING AROUND ROOM WITHOUT UNSTEADINESS OR DIZZINESS. DISCHARGE INSTRUCTIONS REVIEWED WITH PATIENT AND SPOUSE. 1638 DISCHARGED HOME VIA WHEELCHAIR TO PRIVATE VEHICLE WITH SPOUSE
== END 2019-01-04 16:35 | disposition home or self-care (01) ==
LOC: D.OPS 08:52
PROVIDERS: Surgery; ATTEND Internal Medicine Nephrology
DX: T82.868A Thrombosis due to vascular prosthetic devices, implants and grafts, initial encounter (principal)

== ENCOUNTER 2019-01-12 15:24 | Inpatient (IN) | payer MEDICARE ==
[2019-01-12] MEDS ORDERED: FERGON 240 MG240 MG PO (16:04)
[2019-01-12] MEDS ORDERED: EPOGEN20000 U/ML SC (16:04)
[2019-01-12] MEDS ORDERED: VITAMIN D31000 UNI2 PO (16:06)
[2019-01-12 16:15] VITALS: BP 194/70
[2019-01-12 16:16] VITALS: BP 197/70; BMI 24.8
[2019-01-12 16:38] LABS: BASOPHILS 0.2 % (0-2); EOSINOPHILS 7.3 % (0-7); HEMATOCRIT 33.2 % (42.0-54.0); HEMOGLOBIN 10.8 g/dL (13.5-17.5); IMMATURE GRANULOCYTES 0.2 % (0-5); LYMPHOCYTES 20.5 % (15-50); MCH 31.8 pg (26.0-34.0); MCHC 32.5 g/dL (31.0-37.0); MCV 97.6 fL (80.0-100.0); MEAN PLATELET VOLUME 9.4 fL (7.4-10.4); MONOCYTES 8.6 % (2-11); NEUTROPHILS 63.2 % (40-80); PLATELET COUNT 134 10x3/uL (130-400); RDW 16.8 % (11.5-14.5); WBC 4.5 10x3/uL (4.8-10.8)
[2019-01-12 16:51] LABS: CARBON DIOXIDE 24.3 mmol/L (21.0-32.0); CREATININE - SERUM 7.6 mg/dL (0.6-1.3); INR 6.54 (0.85-1.17); POTASSIUM - SERUM 5.3 mmol/L (3.5-5.1); PROTIME 56.4 SECONDS (11.6-15.0)
--- NOTE | 2019-01-12 17:09 | NUR ---
ARRIVED FROM DR. KHAN'S OFFICE FOR HERO GRAFT DECLOTTING. AREN OLD AV FISTULAS HAVE NO THRILL AND NO BRUIT. MONITOR PLACED ON PT AND RATE IS 49 SINUS SHELLY. SEE ASSESSMENT FOR FURTHER EVAL
--- NOTE | 2019-01-12 17:21 | NUR ---
LAB CALLED WITH INR OF 6.5. CALLED VICTOR HUGO, RENAL EMERGENCY MEDICAL SERVICE MANAGER. ORDER RECIEVED TO RECHECK INR IN THE AM ALONG WITH A BMP AND CBC. VICTOR HUGO ALSO ASKED WHAT PT K IS AND NEW ORDER RECIEVED TO GIVE ONE TIME DOSE OF VELTESSA NOW.
--- NOTE | 2019-01-12 18:05 | NUR ---
PT RESTING IN BED, DENIES ANY NEEDS AT THIS TIME, WILL CONT TO FOLLOW POC
--- NOTE | 2019-01-12 18:16 | NUR ---
ATTEMPTED TO REACH PHARMACY TO BRING VALTASSA TO FLOOR. NO ANSWER AND PHONE RANG OVER TO THE PHYSICAL THERAPY ASSISTANT. WILL TRY AGAIN
--- NOTE | 2019-01-12 18:31 | NUR ---
NURSE ATTEMPTED PIV X2 AND FAILED. CALLED ER AND ONE OF THEIR NURSES WILL COME ATTEMPT PIV. CONSENTS SIGNED FOR PROCEDURE TOMORROW
--- NOTE | 2019-01-12 18:32 | NUR ---
PHARMACY STATES THEY WILL BRING THE VALTASSA WHEN THEIR TECH GETS BACK DOWN TO PHARMACY
--- NOTE | 2019-01-12 18:44 | NUR ---
ER NURSE WAS UNSUCCESSFUL, ER NURSE ASKED ER PA TO COME TO ROOM AND PLACE PIV IN EJ. PA PLACED 20G TO RIGHT EJ X1 ATTEMPT. PT TOLERATED WELL
--- NOTE | 2019-01-12 19:41 | NUR ---
PT WAS RESTING WITH EYES CLOSED EARLIER BUT LCTA AND RESP EVEN ... RETURNED AT THIS TIME TO FIND AWAKE AND ALERT BED IS LOW WITH CALL LIGHT IN PLACE. PT DENIES NEEDS AT THIS TIME. SKIN WARM AND DRY BOWEL SOUNDS X4
[2019-01-12 20:21] VITALS: BP 187/75
[2019-01-13] VITALS (7 sets, daily range): BP systolic 144–184; BP diastolic 40–65; BMI 24.8
--- NOTE | 2019-01-13 02:15 | NUR ---
I have reviewed this patient and I concur with the Shift Assessment completed by the Licensed Practical Nurse today this shift.
[2019-01-13 04:06] LABS: BASOPHILS 0.2 % (0-2); EOSINOPHILS 6.6 % (0-7); HEMOGLOBIN 9.3 g/dL (13.5-17.5); IMMATURE GRANULOCYTES 0.2 % (0-5); LYMPHOCYTES 27.2 % (15-50); MCH 31.4 pg (26.0-34.0); MCHC 32.1 g/dL (31.0-37.0); MEAN PLATELET VOLUME 10.1 fL (7.4-10.4); MONOCYTES 9.7 % (2-11); NEUTROPHILS 56.1 % (40-80); PLATELET COUNT 139 10x3/uL (130-400); RBC 2.96 10x6/uL (4.20-6.10); RDW 16.9 % (11.5-14.5); WBC 4.2 10x3/uL (4.8-10.8)
[2019-01-13 04:25] LABS: ANION GAP 17.3 mmol/L (8-16); CALCIUM 9.2 mg/dL (8.5-10.1); CARBON DIOXIDE 25.4 mmol/L (21.0-32.0); INR 6.17 (0.85-1.17); POTASSIUM - SERUM 5.7 mmol/L (3.5-5.1); PROTIME 53.8 SECONDS (11.6-15.0)
[2019-01-13 04:27] LABS: CREATININE - SERUM 13.3 mg/dL (0.6-1.3)
--- NOTE | 2019-01-13 04:27 | NUR ---
RECIEVED CALL FROM LAB OF A CRITICLE PT PTINR...LEVELS HAVE DECREASED SINCE LAST DRAW PT ALERT AND STABLE WITH NO HEMERAGING
--- NOTE | 2019-01-13 06:32 | NUR ---
CALLED HS AND WAS INFORMED WE DO NOT KNOW A TIME OF SURGERY YET. PT HAS REMAINED NPO AND I WILL PASS PREPORDERS OFF TO ON COMING NURSE
--- NOTE | 2019-01-13 07:30 | NUR ---
A/A/OX4. DENIES ANY PAIN AT PRESENT TIME AND NO REQUESTS VOICED. PT INFORMED HE SURGERY HAS BEEN CHANGED TO TOMORROW AND WILL BE ABLE TO EAT TODAY. IV TO RIGHT JUGULAR PERIPHERAL. DRESSING CHANGED TO IV DUE TO BLEEDING. ASSESSMENT COMPLETED AND WILL CONTINUE POC. CALL LIGHT IN REACH.
--- NOTE | 2019-01-13 10:44 | NUR ---
PER ORDER OF DR. KHAN GIVE ONE UNIT FFP TODAY AND GIVEN AT THIS TIME. PT TOLERATED WELL WITH VSS STABLE.
--- NOTE | 2019-01-13 12:09 | NUR ---
I have reviewed this patient and I concur with the Shift Assessment completed by the Licensed Practical Nurse today this shift.
--- NOTE | 2019-01-13 17:50 | NUR ---
CONSENT FORMS FOR SURGERY TOMORROW SIGNED AND PT INSTRUCTED ON NPO AFTER MIDNIGHT AND VERBALIZES UNDERSTANDING.
--- NOTE | 2019-01-13 19:46 | NUR ---
EVENING ROUNDS COMPLETED. REPORT RECEIVED. PT SITTING UP IN BED WITH EYES CLOSED, RR EVEN AND UNLABORED. NO S/S OF DISTRESS NOTED. WHITE BOARD UPDATED. BED IN LOW POSITION. CALL LIGHT IN REACH. WILL CTM.
[2019-01-14 03:55] VITALS: BP 184/44
--- NOTE | 2019-01-14 07:27 | NUR ---
PT AWAKE AND ORIENTED LYING IN BED, PLAYING ON PHONE. UNDERSTNADS NPO, NO COMPLAINTS/CONCERNS VOICED THIS MORNING, JUST READY TO LEAVE TODAY. CL IN REACH, SRX2.
--- NOTE | 2019-01-14 07:41 | NUR ---
PT PREOPED FOR SURGERY
[2019-01-14 08:02] VITALS: BP 190/49
--- NOTE | 2019-01-14 10:00 | NUR ---
I have reviewed this patient and I concur with the Shift Assessment completed by the Licensed Practical Nurse today this shift.
--- NOTE | 2019-01-14 10:32 | NUR ---
PT STILL WAITING TO GO BACK TO SURGERY. GETTING FRUSTRATED, BUT STILL AMIABLE. NO OTHER COMPLAINTS/CONCERNS VOICED AT THIS TIME. CL IN REACH, SRX2.
[2019-01-14 11:02] LABS: BASOPHILS 0.3 % (0-2); EOSINOPHILS 6.5 % (0-7); HEMATOCRIT 30.7 % (42.0-54.0); HEMOGLOBIN 9.9 g/dL (13.5-17.5); IMMATURE GRANULOCYTES 0.3 % (0-5); LYMPHOCYTES 26.7 % (15-50); MCH 31.5 pg (26.0-34.0); MCHC 32.2 g/dL (31.0-37.0); MCV 97.8 fL (80.0-100.0); MEAN PLATELET VOLUME 9.8 fL (7.4-10.4); MONOCYTES 13.1 % (2-11); NEUTROPHILS 53.1 % (40-80); PLATELET COUNT 122 10x3/uL (130-400); RBC 3.14 10x6/uL (4.20-6.10); RDW 16.8 % (11.5-14.5); WBC 3.8 10x3/uL (4.8-10.8)
[2019-01-14 11:16] LABS: INR 2.9 (0.85-1.17); PROTIME 29.6 SECONDS (11.6-15.0)
[2019-01-14 11:23] LABS: ANION GAP 21.8 mmol/L (8-16); CALCIUM 9.3 mg/dL (8.5-10.1); CARBON DIOXIDE 23.4 mmol/L (21.0-32.0); CREATININE - SERUM 15.4 mg/dL (0.6-1.3)
[2019-01-14 11:28] LABS: POTASSIUM - SERUM 6.2 mmol/L (3.5-5.1)
--- NOTE | 2019-01-14 13:44 | NUR ---
PT STILL GONE FOR OPERATION (DECLOTTING OF HEROGRAFT). AT BESIDE. TO GO TO DIAYLISIS WHEN HE RETURNS. HAVE NOT RECIEVED REPORT AT THIS TIME.
--- NOTE | 2019-01-14 14:13 | NUR ---
CONSULTED DR MILLER REGARDING PERSISTENT ELEVATED BP. VERBAL ORDERS PER DR MILLER TO ADMINISTER HYDRALAZINE 5MG X1 IN PACU NOW. MAY REPEAT HYDRALAZINE 5MG X1 IF SYSTOLIC IS GREATER THAN 200MMHG. ORDERS RECEIVED AND IMPLEMENTED. WILL CONTINUE TO MONITOR.
[2019-01-14 16:03] VITALS: BP 169/90
--- NOTE | 2019-01-14 18:41 | NUR ---
PT STILL DIALIZING IN ROOM, THEY ARE FINISHING UP NOW. B/P 170/60, PT IS AWAKE AND ORIENTED. STATES HE'S NOT REALLY HUNGRY BUT WAS THIRSTY. COFFEE PROVIDED. NO COMPLAINTS/CONCERNS/QUESTIONS AT THIS TIME, CL IN REACH, SRX2. NO FAMILY AT BEDSIDE.
--- NOTE | 2019-01-14 19:00 | NUR ---
REPORT RECEIVED. PT SITTING UP IN BED WITH EYES OPEN, DIALYSIS CURRENTLY IN ROOM. NOTIFIED BY LIBRADO JACOBO RN THAT PT HAD NO BRUIT OR THRILL ON HEROGRAFT. UPON PALPATION NOTICED THE PT IN FACT DID NOT HAVE BRUIT OR THRILL PRESENT. NOTIFIED DR KHAN OF PT POTENTIALLY HAVING CLOTTED ACCESS. ALSO NOTIFIED NURSE PRACTICIONER HEADER SET UP OPERATOR. PT IS ASYMPTOMATIC AND VITALS ARE STABLE.
[2019-01-14 19:10] VITALS: BP 175/79
[2019-01-14 22:52] LABS: ANION GAP 17.9 mmol/L (8-16); CARBON DIOXIDE 25.7 mmol/L (21.0-32.0); CREATININE - SERUM 14.6 mg/dL (0.6-1.3)
[2019-01-14 22:57] LABS: POTASSIUM - SERUM 6.6 mmol/L (3.5-5.1)
--- NOTE | 2019-01-14 23:15 | NUR ---
NOTIFIED GEENA MCCULLOUGH NURSE PRACTICIONER OF PT CRITICAL POTASSIUM OF 6.6. SHE ORDERED 1 AMP D50 IV, 10 UNITS HUMALOG IV PUSH, 30 GM KAYEXELATE PO.
[2019-01-14 23:55] VITALS: BP 176/42
--- NOTE | 2019-01-15 03:25 | NUR ---
I have reviewed this patient and I concur with the Shift Assessment completed by the Licensed Practical Nurse today this shift.
[2019-01-15 03:55] VITALS: BP 136/52
--- NOTE | 2019-01-15 04:38 | NUR ---
CONSENT FORMS SIGNED AND PLACED ON CHART FOR SCHEDULED MORNING PROCEDURE. PT HAS BEEN INFORMED OF NPO STATUS. NO S/S OF DISTRESS NOTED. CALL LIGHT IN REACH. WILL CTM.
[2019-01-15 04:50] LABS: BASOPHILS 0.2 % (0-2); EOSINOPHILS 1.3 % (0-7); HEMOGLOBIN 9.1 g/dL (13.5-17.5); IMMATURE GRANULOCYTES 0.2 % (0-5); LYMPHOCYTES 10.4 % (15-50); MCH 30.7 pg (26.0-34.0); MCHC 31.4 g/dL (31.0-37.0); MEAN PLATELET VOLUME 9.9 fL (7.4-10.4); MONOCYTES 11.2 % (2-11); NEUTROPHILS 76.7 % (40-80); PLATELET COUNT 102 10x3/uL (130-400); RBC 2.96 10x6/uL (4.20-6.10); RDW 16.8 % (11.5-14.5)
[2019-01-15 04:57] LABS: WBC 5.4 10x3/uL (4.8-10.8)
[2019-01-15 05:02] LABS: INR 2.56 (0.85-1.17); PROTIME 26.7 SECONDS (11.6-15.0)
[2019-01-15 05:18] LABS: ANION GAP 19.5 mmol/L (8-16); CALCIUM 9.4 mg/dL (8.5-10.1); CARBON DIOXIDE 23.9 mmol/L (21.0-32.0); CREATININE - SERUM 15.5 mg/dL (0.6-1.3)
[2019-01-15 05:24] LABS: POTASSIUM - SERUM 5.4 mmol/L (3.5-5.1)
--- NOTE | 2019-01-15 06:34 | NUR ---
CLEANED PT NOSTRILS WITH POVIDONE IODINE SWABS ORDERED.
--- NOTE | 2019-01-15 07:17 | NUR ---
PT AWAKE AND ORIENTED LYING IN BED. HE HOPES HE'LL GO FOR SURGERY EARLY THIS A.M BUT UNDERSTANDS THAT I WON'T KNOW UNTIL THEY CALL. HE HAS NO COMPLAINTS OR CONCERNS AND STATES HE FELS FINE. CL IN [facility], SRX2.
[2019-01-15 08:05] VITALS: BP 136/65
--- NOTE | 2019-01-15 10:05 | NUR ---
PT TAKEN TO SURGERY.
--- NOTE | 2019-01-15 13:12 | NUR ---
TALKED WITH ANESTHESIA PAUL ABOUT PT BLOOD PRESSURE. HE SAID IF SYSTOLIC GETS ABOVE 200 TO GIVE 5MG OF HYDRALAZINE IV. V.O READ BACK CORRECTLY. WILL CONTINUE TO MONITOR PT BLOOD PRESSURE
--- NOTE | 2019-01-15 13:16 | NUR ---
CALLED TO INFORM THAT PT DRESSING SITE IS STILL BLEEDING THROUGH. PRESSURE BAG IS ON SITE AND STILL LEAKING THROUGH. HE VOCALIZED TO TAKE DRESSING OFF AND HOLD MANUALL PRESSURE AND HE WOULD BE OVER TO ASSESS THE SITE.
--- NOTE | 2019-01-15 13:36 | NUR ---
IS AT BEDSIDE
--- NOTE | 2019-01-15 13:40 | NUR ---
CALLED LAB TO SEE IF FFP WAS READY. THEY SAID ANOTHER 15 MINUTES
--- NOTE | 2019-01-15 14:00 | NUR ---
GAVE 10MG OF HYDRALAZINE IN IV PER VERBAL ORDER
--- NOTE | 2019-01-15 14:23 | NUR ---
JUST LEFT PT BEDSIDE. VOCALIZED TO GIVE FFP WHEN READY IN THE LAB AND MONITOR BLEEDING AT DRESSING SITE. HE VOCALIZED TO ALSO KEEP SYSTOLIC BLOOD PRESSURE UNDER 160. WILL CONTINUE TO MONITOR AND CARRY OUT ORDERS VOCALIZED.
--- NOTE | 2019-01-15 14:29 | NUR ---
PT IS RESTING COMFORTABLE IN PACU. NO C/O OF PAIN OR DISCOMFORT AT THIS TIME.
--- NOTE | 2019-01-15 14:58 | NUR ---
JUST STARTED FFP AT THIS TIME ORDERED
--- NOTE | 2019-01-15 15:10 | NUR ---
CALLED AT THIS TIME TO UPDATE HIM ON PT. VERBAL ORDER TO GIVE 10MG OF VITAMINE K IV AND 2O MCG OF DDAVP IV AT THIS TIME. V.O.R.B CORRECT. WILL NOTIFY HIM AFTER GIVEN
--- NOTE | 2019-01-15 15:18 | NUR ---
TALKED TO PHARMACY AND THEY ARE MAKING NEW BAGS OF MEDICINE PER ORDERED BY AND WILL BRING TO ME IN PACU
--- NOTE | 2019-01-15 15:29 | NUR ---
REDRESSED HEMASPLIT ORDERED BY MAINTAING STERIL DRESSING DURING DRESSING APPLICATION. PT TOLERATED WELL WITH NO C/O. SITE IS STILL BLEEDING SLOWLY. WILL REINFORCE WITH 4X4 GAUZE PRESSURE DRESSING AND WILL UPDATE SOON.
--- NOTE | 2019-01-15 15:50 | NUR ---
I have reviewed this patient and I concur with the Shift Assessment completed by the Licensed Practical Nurse today this shift.
--- NOTE | 2019-01-15 16:05 | NUR ---
TALKED WITH AND UPDATED ON PT STATUS. TOLD HIM I REDRESSED SITE AND PUT 4 BOXES OF 4X4 GAUZE PRESSURE DRESSING OVER DRESSING SITE TO HELP KEEP PRESSURE ON BLEEDING. IT HAS ONLY SOAKED THROUGH ONE BUNCH OF 4X4 DRESSINGS. VITAMIN K IS ALMOST THROUGH INFUSING AND THEN I WILL INFUSE DDAVP ORDERED. DR. KHAN V.O TO START THE DDAVP AND THEN LET PT GO TO DIALYSIS. HE SAID TO TELL MED 2 NURSE TO CALL HIM WHEN DONE WITH DIALYSIS AND TELL HIM HOW MUCH BLOOD HE HAS LOST THEN. V.O. READ BACK CORRECT. WILL CONTINUE TO MONITOR AND ADMINSITER MEDS ORDERED. I WILL CALL DIAYSIS AND MED 2 TO RELAY MESSAGE.
--- NOTE | 2019-01-15 16:11 | NUR ---
CALLED REPORT TO ASHLEE PIERSON IN DIAYLSIS. I AM ALSO CALLING REPORT TO MED 2 NURSE THAT PT IS GOING TO DIALYSIS AND THAT WHEN HE RETURNS TO HIS ROOM TO NOTIFY ABOUT BLEEDING STATUS.
--- NOTE | 2019-01-15 16:15 | NUR ---
CALLED JACINTA TO CESAR PIERSON ON MED 2 AND INFORMED HER OF THE PT SITUATION. TOLD HER THAT WHEN PT RETURNS TO HIS ROOM TO CALL WHEN HE GETS BACK IN HIS ROOM. SHE VOCALIZED UNDERSTANDING.
--- NOTE | 2019-01-15 18:33 | NUR ---
PT IN DIALYSIS NOW. SURGERY HAD A LOT OF TORUBLE IN PACU CONTROLLING BLEEDING TO NEW RIGHT CHEST HEMASPLIT. I WAS CALLED DOWN TO ASSIST DIALYISIS NURSE IN CONTROLLING BLEEDING, THAT IS BETTER NOW. SECURED AND DRESSED SITE. CURRENTLY DIALYIZING.
--- NOTE | 2019-01-15 19:47 | NUR ---
PATIENT STILL IN DIALYSIS.
[2019-01-15 20:00] VITALS: BP 131/63
--- NOTE | 2019-01-15 20:05 | NUR ---
SPOKE WITH DIALYSIS. PATIENT IS READY TO BE PICKED UP AND TRANSFERRED BACK TO UNIT.
--- NOTE | 2019-01-15 20:29 | NUR ---
PATIENT BACK TO ROOM FROM DIALYSIS. PICKED UP BY NURSING STAFF. PATIENT EATING SUPPER. CALL LIGHT IN REACH.
--- NOTE | 2019-01-15 23:41 | NUR ---
PATIENT CONTINUES TO OOZE BLOOD FROM EJ SITE. 4X4'S APPLIED WITH LIGHT PRESSURE.
--- NOTE | 2019-01-16 00:31 | NUR ---
PATIENTS DRESSINGS REMOVED FROM RT CHEST. NEW CVL DRESSING APPLIED OVER INSERTION SITE. BLOOD OOZING FROM INITIAL INCISION. 4X4 FOLED 4 TIMES AND APPLIED AND COVERED WITH TEGADERM AND PRESSURE TAPE. WCTM.
--- NOTE | 2019-01-16 03:17 | NUR ---
CHANGED DRESSING ON INCISION SITE ON RIGHT CHEST FROM BLOOD OOZING. CLEAN 4X4, TEGADERM AND PRESSURE TAPE APPLIED. WCTM.
--- NOTE | 2019-01-16 03:17 | NUR ---
CHANGED DRESSING ON INCISION SITE ON LEFT CHEST FROM BLOOD OOZING. CLEAN 4X4, TEGADERM AND PRESSURE TAPE APPLIED. WCTM.
[2019-01-16 04:00] VITALS: BP 155/69
--- NOTE | 2019-01-16 06:10 | NUR ---
CALLED DR. SIMMS CELL TO INFORM OF CONTINUED BLEEDING. LEFT MESSAGE FOR HIM TO CALL BACK WITH FURTHER INSTRUCTIONS.
--- NOTE | 2019-01-16 06:15 | NUR ---
PATIENTS DRESSING REMOVED ON RIGHT CHEST INCISION. INCISION CONTINUES TO OOZE BLOOD. 4X4'S FOLDED IN FOURTH AND PLACED ON INCISION SITE, COVERED WITH PRESSURE TAPE. WCTM.
[2019-01-16 06:32] LABS: BASOPHILS 0.6 % (0-2); EOSINOPHILS 10.2 % (0-7); HEMATOCRIT 25.8 % (42.0-54.0); HEMOGLOBIN 8.3 g/dL (13.5-17.5); IMMATURE GRANULOCYTES 0.3 % (0-5); LYMPHOCYTES 21.3 % (15-50); MCH 31.2 pg (26.0-34.0); MCHC 32.2 g/dL (31.0-37.0); MEAN PLATELET VOLUME 9.7 fL (7.4-10.4); NEUTROPHILS 55.6 % (40-80); PLATELET COUNT 104 10x3/uL (130-400); RBC 2.66 10x6/uL (4.20-6.10); RDW 17.1 % (11.5-14.5)
[2019-01-16 06:34] LABS: WBC 3.4 10x3/uL (4.8-10.8)
--- NOTE | 2019-01-16 06:42 | NUR ---
RECALLED DR. SIMMS CELL PHONE FOR INSTRUCTIONS CONCERNING OOZING OF BLOOD FROM INCISION SITE.
[2019-01-16 06:50] LABS: CALCIUM 8.8 mg/dL (8.5-10.1); CARBON DIOXIDE 30.4 mmol/L (21.0-32.0); CREATININE - SERUM 9.6 mg/dL (0.6-1.3); POTASSIUM - SERUM 5.4 mmol/L (3.5-5.1)
--- NOTE | 2019-01-16 07:00 | NUR ---
ON FLOOR, SPOKE TO HIM REGARDING PT STILL EXPERIENCING BLEEDING FROM HEMESPLIT SITE. ADVISED NURSING TO CONTINUE TRYING TO REACH AND TO SPEAK TO ONCE HE ARRIVES
[2019-01-16 07:06] LABS: INR 1.41 (0.85-1.17); PROTIME 16.6 SECONDS (11.6-15.0)
--- NOTE | 2019-01-16 07:30 | NUR ---
SPOKE TO REGARDING BLEEDING FROM HEMESPLIT INSERTION SITE. NO NEW ORDERS RECIEVED. ADVISED NURSING TO CONTINUE TO CHANGE PRESSURE DRESSING NEEDED.
--- NOTE | 2019-01-16 08:00 | NUR ---
PT RESTING IN BED, CHANGED DRESSING TO HEMESPLIT AND PRESSURE DRESSING. PT TOLERATED WELL. SHIFT ASSESSMENT PERFORMED. DENIES ANY NEEDS AT THIS TIME, WILL CONT TO FOLLOW POC
--- NOTE | 2019-01-16 08:37 | NUR ---
OFFICE CALLED NURSE AND STATES THAT HAS PUT ORDERS IN A NOTE FOR NURSING. UPON READING NEW NOTE, STATES HE WANTS PT TO DIALIZE STAT AND IF BLEEDING CONTINUES AFTER DIALYSIS THEN TO TRANSFUSE PLATELETS. NOTIFIED VICTOR HUGO RENAL THINNER SPRAYER.
[2019-01-16 08:49] VITALS: BP 182/59
--- NOTE | 2019-01-16 12:30 | NUR ---
CAME TO DESK AND ASKED NURSE HOW PT WAS DOING. BLEEDING HAS STOPPED AND FEELS THAT THE PT DOES NOT NEED DIALYSIS TODAY. NOTIFIED OF ELEVATED BP AND NEW ORDER RECIEVED FOR [facility]. WILL CONT TO FOLLOW POC
[2019-01-16 13:43] VITALS: BP 211/40
[2019-01-16 17:26] VITALS: BP 150/54
--- NOTE | 2019-01-16 17:26 | NUR ---
PT SITTING IN CHAIR EATING SUPPER, DENIES ANY NEEDS AT THIS TIME, WILL CONT TO FOLLOW POC.
--- NOTE | 2019-01-16 19:35 | NUR ---
PATIENT LAYING IN BED. HAS NO COMPLAINTS AT THIS TIME. NO DISTRESS NOTED.
[2019-01-16 20:00] VITALS: BP 146/57
[2019-01-17] VITALS: BP 142/70
--- NOTE | 2019-01-17 03:27 | NUR ---
PATINET LAYING IN BED, EYES CLOSED, CHEST RISING AND FALLING. NO DISTRESS NOTED.
[2019-01-17 04:00] VITALS: BP 151/64
[2019-01-17 05:59] LABS: INR 1.28 (0.85-1.17); PROTIME 15.4 SECONDS (11.6-15.0)
[2019-01-17 06:06] LABS: ANION GAP 12.8 mmol/L (8-16); CARBON DIOXIDE 28.8 mmol/L (21.0-32.0); CREATININE - SERUM 11.9 mg/dL (0.6-1.3); POTASSIUM - SERUM 4.6 mmol/L (3.5-5.1)
[2019-01-17 06:27] LABS: HEMATOCRIT 22.9 % (42.0-54.0); MCH 31.2 pg (26.0-34.0); MCHC 31.9 g/dL (31.0-37.0); MCV 97.9 fL (80.0-100.0); MEAN PLATELET VOLUME 10.2 fL (7.4-10.4); PLATELET COUNT 106 10x3/uL (130-400); RBC 2.34 10x6/uL (4.20-6.10); RDW 16.8 % (11.5-14.5); WBC 2.9 10x3/uL (4.8-10.8)
[2019-01-17 06:33] LABS: HEMOGLOBIN 7.3 g/dL (13.5-17.5)
--- NOTE | 2019-01-17 07:31 | NUR ---
ALERT AND ORIENTED. NO DISTRESS NOTED. CL IN REACH.
[2019-01-17 08:31] VITALS: BP 154/41
[2019-01-17 08:58] LABS: EOSINOPHILS 7 % (0-7); LYMPHOCYTES 26 % (15-50); MONOCYTES 8 % (2-11); NEUTROPHILS 58 % (40-80); PLATELET ESTIMATE DECREASED
[2019-01-17 08:59] LABS: ANISOCYTOSIS OCC
[2019-01-17] MEDS ORDERED: BRILINTA90 MG PO (10:02)
[2019-01-17] MEDS ORDERED: COUMADIN5 MG PO (10:03)
[2019-01-17] MEDS ORDERED: NORVASC10 MG PO (10:04)
--- NOTE | 2019-01-17 10:09 | MORECARE ---
CASE MANAGEMENT DISCHARGE SUMMARY PATIENT: BRITNEY LEMUS UNIT: [id number] ADM DATE: 01/13/19 AGE: 58 : 58 SEX: M ROOM/BED: D.2105 AUTHOR: LIONEL CONNOLLY PHYSICIAN: REFERRING PHYSICIAN: MARTÍNEZ CHONG MD DATE OF SERVICE: 01/17/19 Discharge Plan Patient Name: BRITNEY LEMUS [facility] [facility] 1960 Planned Disposition: Home Anticipated Discharge Date: Discharge Date: Expected LOS: Initial Reviewer: [email or web address] Initial Review Date: 01/12/2019 Generated: 01/17/19 11:09 am DCPIA - Discharge Planning Initial Assessment Updated by [email or web address]: Andree Evans on 01/17/19 10:09 am * Is the patient Alert and Oriented? Yes * How many steps to enter\exit or inside your home? NONE * PCP PATIENT STATES DR MARTÍNEZ CHONG- NEPHROLOGY HE HAS NOT SEEN DR ASH IN [facility] IN [facility] * Pharmacy [facility] * Preadmission Environment Home with Family * ADLs Independent * Other Equipment PATIENT HAS A CANE, WALKER, SHOWER CHAIR AND STATIONARY OXYGEN. DOES NOT UTILIZE CANE OR WALKER MUCH. [facility] * List name and contact numbers for known caregivers / representatives who currently or will assist patient after discharge: MICHELLE LEMUS- - [phone] * Verbal permission to speak to the caregivers and representatives has been obtained from the patient. No * Community resources currently utilized None * Please name any agencies selected above. N/A * Additional services required to return to the preadmission environment? No * Can the patient safely return to the preadmission environment? Yes * Has this patient been hospitalized within the prior 30 days at any hospital? No Patient Name: BRITNEY LEMUS Page [id number] at 1009 All edits/amendments must be made on the electronic document DICTATION DATE: 01/17/19 1008 DEPARTMENT ASSISTANT: RAJ 01/17/19 1008 RPT#: [id number] DC DATE: STATUS: ADM IN [facility] [address] [place] [address] END OF REPORT
--- NOTE | 2019-01-17 10:25 | MORECARE ---
CASE MANAGEMENT DISCHARGE SUMMARY PATIENT: BRITNEY LEMUS UNIT: [id number] ADM DATE: 01/13/19 AGE: 58 : 58 SEX: M ROOM/BED: D.2104 AUTHOR: MOHSEN,DOC PHYSICIAN: REFERRING PHYSICIAN: MARTÍNEZ CHONG MD DATE OF SERVICE: 01/17/19 Discharge Plan Patient Name: BRITNEY LEMUS Facility: [facility]:[place] : 1960 Planned Disposition: Home Anticipated Discharge Date: Discharge Date: Expected LOS: Initial Reviewer: [email or web address] Initial Review Date: 01/12/2019 Generated: 01/17/19 11:25 am Comments DCP- Discharge Planning Updated by [email or web address]: Andree Evans on 01/17/19 9:[address] PLAN FOR DIALYSIS FOR 2 HOURS THIS AFTERNOON PER [employer]IAN STYLE FOOD. PLAN TO GIVE 2 UNITS OF PRBCS DURING DIALYSIS TODAY. CM MET WITH THE PATIENT IN HIS ROOM. HE IS ALERT AND ORIENTED. HAD JUST SPOKEN WITH THE [employer]. HE IS ANXIOUS FOR DISCHARGE TO HOME. [employer] DISCUSSED PLAN FOR DIALYSIS W/ TRANSFUSION AND DISCHARGE POST PROCEDURE TO HOME. CM EXPLAINED MY ROLE. RECEIVED PERMISSION TO PROCEED WITH ASSESSMENT FOR POSSIBLE DISCHARGE NEEDS. HE IS NOT RECEIVING ANY OUTSIDE SERVICES. DENIES ANY NEEDS. THE PATIENT IS AND LIVES WITH HIS . HE IS INDEPENDENT IN HIS CARE. STATES HE DIALYZES AT HOME 5 DAYS A WEEK. HE WILL TRANSPORTATION TO HOME. HE HAS A DAUGHTER WHO IS A NURSE THAT CAN ASSIST IF NEEDED. HE HAS DME. BUT DOES NOT REQUIRE THE ASSISTIVE DEVICES FOR AMBULATION AT THIS TIME. STILL HAD HOME OXYGEN FROM [facility]. HE PRIMARILY SEES DR MARTÍNEZ CHONG, THE POULTRY PROCESSOR FOR HIS CARE. STATES HE HAS NOT SEEN HIS PCP "IN A WHILE." PATIENT FEELS HIS DISCHARGE TO HOME IS A SAFE DISCHARGE. DENIES ANY NEEDS. DCPIA - Discharge Planning Initial Assessment Updated by [id number]: Andree Evans on 01/17/19 10:09 am * Is the patient Alert and Oriented? Yes * How many steps to enter\\exit or inside your home? NONE * PCP PATIENT STATES DR MARTÍNEZ CHONG- NEPHROLOGY HE HAS NOT SEEN DR ASH IN [facility] * Pharmacy [facility] * Preadmission Environment Home with Family * ADLs Independent * Other Equipment PATIENT HAS A CANE, WALKER, SHOWER CHAIR AND STATIONARY OXYGEN. DOES NOT UTILIZE CANE OR WALKER MUCH. ASAD- JOY * List name and contact numbers for known caregivers / representatives who currently or will assist patient after discharge: MICHELLE LEMUS- - [phone] * Verbal permission to speak to the caregivers and representatives has been obtained from the patient. No * Community resources currently utilized None * Please name any agencies selected above. N/A * Additional services required to return to the preadmission environment? No * Can the patient safely return to the preadmission environment? Yes * Has this patient been hospitalized within the prior 30 days at any hospital? No Last DP export: 01/17/19 9:09 a Patient Name: BRITNEY LEMUS Page [id number] at 1025 All edits/amendments must be made on the electronic document DICTATION DATE: 01/17/19 1025 PRINCIPAL PROGRAMMER: RAJ 01/17/19 1025 RPT#: [id number] DC DATE: STATUS: ADM IN [facility] [address] [place] [address] END OF REPORT
--- NOTE | 2019-01-17 10:57 | MORECARE ---
CASE MANAGEMENT DISCHARGE SUMMARY PATIENT: BRITNEY LEMUS UNIT: [id number] ADM DATE: 01/13/19 AGE: 58 : 58 SEX: M ROOM/BED: D.2108 AUTHOR: LIONEL CONNOLLY PHYSICIAN: REFERRING PHYSICIAN: MARTÍNEZ CHONG MD DATE OF SERVICE: 01/17/19 Discharge Plan Patient Name: BRITNEY LEMUS Facility: [facility]:[place] : 1960 Planned Disposition: Home Anticipated Discharge Date: 01/17/19 Discharge Date: Expected LOS: 4 Initial Reviewer: [id number] Initial Review Date: 01/12/2019 Generated: 01/17/19 11:56 am Comments DCP- Discharge Planning Updated by [id number]: Jacinto Rebollar on 01/17/19 9:[address] Patient Name: BRITNEY LEMUS Encounter No: [id number] : 1960 Primary Insurance: MEDICARE A & B Anticipated DC Date: Planned Disposition: Home DCP follow-up note: CM PROVIDED AND DISCUSSED IMPORTANT MESSAGE FROM MEDICARE. PT DENIES DISCHARGE NEEDS, PT REPORTS FAMILY TO [employer] FOR TRANSPORT HOME. Jacinto Rebollar, MARINO MANGEMENT DCP- Discharge Planning Updated by [email or web address]: Andree Evans on 01/17/19 9:[address] PLAN FOR DIALYSIS FOR 2 HOURS THIS AFTERNOON PER PROMOTIONS TEAM LEADER. PLAN TO GIVE 2 UNITS OF PRBCS DURING DIALYSIS TODAY. CM MET WITH THE PATIENT IN HIS ROOM. HE IS ALERT AND ORIENTED. HAD JUST SPOKEN WITH THE PROMOTIONS TEAM LEADER. HE IS ANXIOUS FOR DISCHARGE TO HOME. PROMOTIONS TEAM LEADER DISCUSSED PLAN FOR DIALYSIS W/ TRANSFUSION AND DISCHARGE POST PROCEDURE TO HOME. CM EXPLAINED MY ROLE. RECEIVED PERMISSION TO PROCEED WITH ASSESSMENT FOR POSSIBLE DISCHARGE NEEDS. HE IS NOT RECEIVING ANY OUTSIDE SERVICES. DENIES ANY NEEDS. THE PATIENT IS AND LIVES WITH HIS . HE IS INDEPENDENT IN HIS CARE. STATES HE DIALYZES AT HOME 5 DAYS A WEEK. HE WILL TRANSPORTATION TO HOME. HE HAS A DAUGHTER WHO IS A NURSE THAT CAN ASSIST IF NEEDED. HE HAS DME. BUT DOES NOT REQUIRE THE ASSISTIVE DEVICES FOR AMBULATION AT THIS TIME. STILL HAD HOME OXYGEN FROM [facility]. HE PRIMARILY SEES DR MARTÍNEZ CHONG, THE MILKING MACHINE TECHNICIAN FOR HIS CARE. STATES HE HAS NOT SEEN HIS PCP "IN A WHILE." PATIENT FEELS HIS DISCHARGE TO HOME IS A SAFE DISCHARGE. DENIES ANY NEEDS. DCPIA - Discharge Planning Initial Assessment Updated by [id number]: Andree Evans on 01/17/19 10:09 am * Is the patient Alert and Oriented? Yes * How many steps to enter\\exit or inside your home? NONE * PCP PATIENT STATES DR MARTÍNEZ CHONG- NEPHROLOGY HE HAS NOT SEEN DR ASH IN [facility] * Pharmacy [facility] * Preadmission Environment Home with Family * ADLs Independent * Other Equipment PATIENT HAS A CANE, WALKER, SHOWER CHAIR AND STATIONARY OXYGEN. DOES NOT UTILIZE CANE OR WALKER MUCH. DME- [facility] * List name and contact numbers for known caregivers / representatives who currently or will assist patient after discharge: MICHELLE LEMUS- - [phone] * Verbal permission to speak to the caregivers and representatives has been obtained from the patient. No * Community resources currently utilized None * Please name any agencies selected above. N/A * Additional services required to return to the preadmission environment? No * Can the patient safely return to the preadmission environment? Yes * Has this patient been hospitalized within the prior 30 days at any hospital? No Coverage Notice Reviewer: [id number] - Jacinto Rebollar Notice Issued Date-Time: 01/17/2019 10:50 Notice Type: IM Discharge Notice Notice Delivered To: Patient Relationship to Patient: Lead Die Molder Name: Delivery Method: HAND - Hand Delivered Anna Days: Prior Verbal Notification: Recipient Understood Notice: Yes Recipient Signature: Yes Med Rec Note Co-signed by Attending: Coverage Notice Comment: Last DP export: 01/17/19 9:25 a Patient Name: BRITNEY LEMUS Page [id number] Electronically Signed by [facility] CITY[facility]eroz on 01/17/19 at 1057 All edits/amendments must be made on the electronic document DICTATION DATE: 01/17/19 1056 CAN STERILIZER: RAJ 01/17/19 1056 RPT#: [id number] OK DATE: STATUS: ADM IN [facility] [address] [place] [address] END OF REPORT
[2019-01-17 11:39] VITALS: BP 131/44
--- NOTE | 2019-01-17 11:54 | NUR ---
EATING LUNCH. AT BS. WILL RECEIVE 2 UNITS PRBC IN DIALYSIS TODAY. NOTFIED DIALYSIS NURSE AND SENDING BLOOD TUBING. WILL DC HOME TODAY.
--- NOTE | 2019-01-17 14:32 | NUR ---
IN DIALYSIS. FIRST UNIT BLOOD BEING GIVEN IN DIALYSIS. WILL TAKE SECOND UNIT. SIGNED DC PAPERS AND PATIENT WILL DC HOME AFTER DIALYSIS. VERBALIZED UNDERSTANDING OF DC ORDERS.
--- NOTE | 2019-01-17 16:35 | MORECARE ---
CASE MANAGEMENT DISCHARGE SUMMARY PATIENT: BRITNEY LEMUS UNIT: [id number] ADM DATE: 01/13/19 AGE: 58 : 58 SEX: M ROOM/BED: D.2109 AUTHOR: LIONEL CONNOLLY PHYSICIAN: REFERRING PHYSICIAN: MARTÍNEZ CHONG MD DATE OF SERVICE: 01/17/19 Discharge Plan Patient Name: BRITNEY LEMUS Facility: [facility]:[place] : 1960 Planned Disposition: Home Anticipated Discharge Date: 01/17/19 Discharge Date: Expected LOS: 4 Initial Reviewer: [email or web address] Initial Review Date: 01/12/2019 Generated: 01/17/19 5:35 pm Comments DCP- Discharge Planning Updated by [id number]: Jacinto Rebollar on 01/17/19 9:[address] Patient Name: BRITNEY LEMUS Encounter No: [id number] : 1960 Primary Insurance: MEDICARE A & B Anticipated DC Date: Planned Disposition: Home DCP follow-up note: CM PROVIDED AND DISCUSSED IMPORTANT MESSAGE FROM MEDICARE. PT DENIES DISCHARGE NEEDS, PT REPORTS FAMILY TO [employer] FOR TRANSPORT HOME. Jacinto Rebollar, MARINO MANGEMENT DCP- Discharge Planning Updated by [id number]: Andree Evans on 01/17/19 9:[address] PLAN FOR DIALYSIS FOR 2 HOURS THIS AFTERNOON PER PALLET RECTIFIER. PLAN TO GIVE 2 UNITS OF PRBCS DURING DIALYSIS TODAY. CM MET WITH THE PATIENT IN HIS ROOM. HE IS ALERT AND ORIENTED. HAD JUST SPOKEN WITH THE PALLET RECTIFIER. HE IS ANXIOUS FOR DISCHARGE TO HOME. PALLET RECTIFIER DISCUSSED PLAN FOR DIALYSIS W/ TRANSFUSION AND DISCHARGE POST PROCEDURE TO HOME. CM EXPLAINED MY ROLE. RECEIVED PERMISSION TO PROCEED WITH ASSESSMENT FOR POSSIBLE DISCHARGE NEEDS. HE IS NOT RECEIVING ANY OUTSIDE SERVICES. DENIES ANY NEEDS. THE PATIENT IS AND LIVES WITH HIS . HE IS INDEPENDENT IN HIS CARE. STATES HE DIALYZES AT HOME 5 DAYS A WEEK. HE WILL TRANSPORTATION TO HOME. HE HAS A DAUGHTER WHO IS A NURSE THAT CAN ASSIST IF NEEDED. HE HAS DME. BUT DOES NOT REQUIRE THE ASSISTIVE DEVICES FOR AMBULATION AT THIS TIME. STILL HAD HOME OXYGEN FROM [facility]. HE PRIMARILY SEES DR MARTÍNEZ CHONG, [employer] DIRECTOR FOR HIS CARE. STATES HE HAS NOT SEEN HIS PCP "IN A WHILE." PATIENT FEELS HIS DISCHARGE TO HOME IS A SAFE DISCHARGE. DENIES ANY NEEDS. DCPIA - Discharge Planning Initial Assessment Updated by [id number]: Andree Evans on 01/17/19 10:09 am * Is the patient Alert and Oriented? Yes * How many steps to enter\\exit or inside your home? NONE * PCP PATIENT STATES DR MARTÍNEZ CHONG- NEPHROLOGY HE HAS NOT SEEN DR ASH IN [facility] * Pharmacy [facility] * Preadmission Environment Home with Family * ADLs Independent * Other Equipment PATIENT HAS A CANE, WALKER, SHOWER CHAIR AND STATIONARY OXYGEN. DOES NOT UTILIZE CANE OR WALKER MUCH. DME- [facility] * List name and contact numbers for known caregivers / representatives who currently or will assist patient after discharge: MICHELLE LEMUS- - [phone] * Verbal permission to speak to the caregivers and representatives has been obtained from the patient. No * Community resources currently utilized None * Please name any agencies selected above. N/A * Additional services required to return to the preadmission environment? No * Can the patient safely return to the preadmission environment? Yes * Has this patient been hospitalized within the prior 30 days at any hospital? No Coverage Notice Reviewer: [id number] - Jacinto Rebollar Notice Issued Date-Time: 01/17/2019 10:50 Notice Type: IM Discharge Notice Notice Delivered To: Patient Relationship to Patient: Echo Vascular Tech Name: Delivery Method: HAND - Hand Delivered Anna Days: Prior Verbal Notification: Recipient Understood Notice: Yes Recipient Signature: Yes Med Rec Note Co-signed by Attending: Coverage Notice Comment: Last DP export: 01/17/19 9:56 a Patient Name: BRITNEY LEMUS Page [id number] at 1635 All edits/amendments must be made on the electronic document DICTATION DATE: 01/17/19 1635 WARP DOFFER: RAJ 01/17/19 1635 RPT#: [id number] DE DATE: STATUS: ADM IN [facility] [address] [place] [address] END OF REPORT
--- NOTE | 2019-01-17 17:20 | NUR ---
RETURNED FROM DIALYSIS. SL REMOVED FROM R NECK. BANDAID APPLIED. ASSISTED TO CAR IN FOR DC HOME WITH . PATIENT IS ALERT AND ORIENTED. NO CHANGE IN ASSESSMENT. STABLE.
--- NOTE | 2019-01-30 09:16 | OP ---
PATIENT NAME: BRITNEY LEMUS MEDICAL RECORD: [id number] :58 LOCATION:D.M2 D.2105 ADMISSION DATE:01/13/19 SURGEON: JAMEL KHAN MD DATE OF OPERATION: 01/14/2019 REFERRING PHYSICIANS: 1. Néstor Bautista MD 2. Andrea Ogden MD OPERATIONS PERFORMED: Percutaneous mechanical thrombolysis with angiography and balloon angioplasty. Selective left common iliac artery arteriogram. Ultrasound-guided access. PREOPERATIVE DIAGNOSIS: Thrombosed HeRO AV graft between the right internal jugular and the left common femoral artery. POSTOPERATIVE DIAGNOSES: Thrombosed HeRO AV graft between the right internal jugular and the left common femoral artery with minor mid body of graft stenosis of 50% and about a 20% stenosis of arterial anastomosis. SURGEON: Jamel Khan MD ANESTHESIA: General with LMA per Joey Marcelo MD PREOPERATIVE NOTE: Mr. Lemus is a very nice 58-year-old white male patient with lupus and renal failure, on chronic hemodialysis. He has severe thrombophilia and is near end-stage access. He has most recently been dialyzing with a HeRO graft between the left femoral artery and the right internal jugular. It has thrombosed despite his anticoagulant therapy at home and he is brought to the operating room for salvage. DESCRIPTION OF PROCEDURE: Under general anesthesia, the patient was placed in supine position, prepped and draped in sterile manner. The Acuseal PTFE segment of this HeRO was accessed near its mid portion just below the left breast. Using ultrasound guidance, it was accessed twice and two opposing 6-Sami introducers were placed. The patient was systemically heparinized and the AngioJet was used to lyse thrombus within the body of the graft and a Francisco J embolectomy catheter was used to pull the plug at the arterial anastomosis. A wire and catheter were then passed through the arterial anastomosis and proximally up into the common iliac artery and an arteriogram was performed. This revealed no obstruction from the common iliac artery to mid superficial femoral with patency of the deep femoral and minimal stenosis at the arterial anastomosis. This was subsequently dilated with an angioplasty balloon and repeated contrast studies revealed no residual stenosis. The clot was then lysed and removed with the AngioJet from the venous portion of the shunt and then flow was restored. Contrast injections revealed no evidence of obstruction through the venous outflow and into the right atrium. The introducers were removed and hemostasis was obtained with [id number] 4-0 Prolene and direct pressure and then dressings of Ultrafoam, Tegaderm, and Cavilon skin prep were applied. Blood loss was about 50 cc, was unreplaced. Sponges, instruments and needles were accounted for. No drain was used and no surgical specimen was submitted for histopathology. OPERATIVE REPORT [id number] BRITNEY LEMUS FINAL DIAGNOSES: Include AV graft thrombosis; superior vena cava syndrome; dependence on renal dialysis; end-stage renal disease, on chronic dialysis; anemia; thrombophilia; and systemic lupus erythematosus. TRANSINT:[id number] Voice Confirmation ID: [id number] DOCUMENT ID: [id number] JAMEL KHAN MD at 0916 CC: NÉSTOR BAUTISTA [id number] DICTATION DATE: 01/29/19 1440 ETYMOLOGY TEACHER: 01/29/19 1614 DIS IN 01/17/19 [facility] [address] [place] [address]
--- NOTE | 2019-02-16 16:44 | OP ---
PATIENT NAME: BRITNEY LEMUS MEDICAL RECORD: [id number] :58 LOCATION:D.M2 D.2105 ADMISSION DATE:01/13/19 SURGEON: JAMEL KHAN MD DATE OF OPERATION: 01/15/2019 REFERRING PHYSICIAN: Dusty Bautista MD DIAGNOSES: End-stage renal disease, on dialysis and dependence on hemodialysis. Thrombosed AV graft. OPERATIONS PERFORMED: Removal of HeRO outflow device from the right internal jugular vein and insertion of a 19-cm long HemoSplit via the same venous access, all under fluoroscopy. SURGEON: Jamel Khan MD ANESTHESIA: General with LMA per SHOT GRINDER OPERATOR. PREOPERATIVE NOTE: Mr. Lemus is an unfortunate 58-year-old white male patient with systemic lupus erythematosus and end-stage renal disease, requiring dialysis. He dialyzes at home and has been doing hemodialysis now for some time. He has had numerous accesses and his most recent successful access was a HeRO graft in his left arm. That had to be removed due to recurring staphylococcal infections, but he did have a new HeRO graft placed between the left common femoral artery and the right internal jugular vein accessed to the right atrium. That graft, however, has thrombosed and thrombosed again almost immediately after thrombectomy. The patient would like to have this graft removed and a tunneled dialysis catheter inserted. DESCRIPTION OF PROCEDURE: Under anesthesia, the patient was prepped and draped in sterile manner. An incision was placed over the connection between the PTFE graft and the outflow device, which was over the right anterior chest just above the breast. The graft was stapled and divided with a clamp on the venous outflow device. I then made an incision at the base of the neck on the right and exposed the venous outflow device and pulled it back through the subcutaneous tunnel. I placed a pursestring suture of 2-0 Vicryl and then inserted a guidewire along the side of the venous outflow device. As the venous outflow device was removed, the guidewire was inserted and the pursestring suture was tightened. I then inserted the peel-away introducer and subsequently a 19-cm HemoSplit was brought through a skin entry site and subcutaneous tunnel and placed through the peel-away sheath. Under fluoroscopy, it was well positioned deep in the right atrium. Both lumens functioned well and were heparin locked and clamped. The pursestring suture was tied. Additional 3-0 Vicryl sutures were used to close the 2 wounds and the skin was closed with running intracuticular 4-0 Monocryl and Dermabond glue. The incisions were dressed with Maxorb Ag, Tegaderm, and Cavilon skin prep. The patient was awakened and taken to the recovery room in stable condition. Blood loss during the operation was 50 cc, unreplaced. Sponges, instruments, and needles were accounted for. No drain was used and no surgical specimen was submitted for histopathology. TRANSINT:[id number] Voice Confirmation ID: [id number] DOCUMENT ID: [id number] OPERATIVE REPORT [id number] BRITNEY LEMUS JAMES MD at 1644 CC: [id number] DICTATION DATE: 02/06/191419 BRANCH EXAMINER: 02/06/19 182 DIS IN 01/17/19 [facility] [address] [place] [address]
== END 2019-01-17 17:42 | disposition home or self-care (01) | DRG 252 ==
LOC: D.M2 15:24 → OBSVTIME 15:24 → D.M2 15:24
PROVIDERS: Internal Medicine Nephrology; Surgery; ADMIT Internal Medicine Nephrology; ATTEND Internal Medicine Nephrology
PROC: 03C83ZZ Extirpation of Matter from Left Brachial Artery, Percutaneous Approach (ICD-10-PCS; principal; 2019-01-13)
PROC: 03783ZZ Dilation of Left Brachial Artery, Percutaneous Approach (ICD-10-PCS; 2019-01-13)
DX: T82.868A Thrombosis due to vascular prosthetic devices, implants and grafts, initial encounter (principal); N18.6 End stage renal disease; D68.62 Lupus anticoagulant syndrome; D68.59 Other primary thrombophilia; Z99.2 Dependence on renal dialysis

== ENCOUNTER → 2020-01-09 09:24 | Outpatient (CLI) | payer MEDICARE ==
[2019-01-13 12:09] VITALS: BMI 24.8
[~2020-01-09 09:24] MED LIST changes: +EPOGEN20000 U/ML SC; +FERGON 240 MG240 MG PO; +NORVASC10 MG PO; +VITAMIN D31000 UNI2 PO
== END | disposition home or self-care (01) ==
LOC: D.CT 09:24
PROVIDERS: ATTEND Internal Medicine Nephrology
DX: I70.203 Unspecified atherosclerosis of native arteries of extremities, bilateral legs (principal)

== ENCOUNTER 2020-01-22 10:22 | Outpatient (CLI) | payer MEDICARE ==
[~2020-01-22] VITALS: Ht 185.4 cm; Wt 86.4 kg
--- NOTE | ~2020-01-22 | HEMODYNAMI ---
PATIENT:BRITNEY LEMUS MEDICAL RECORD: [id number] : 58 LOCATION:[facility] ADMISSION DATE: 01/22/20 Generatedon:01/22/202014:46 Patient name: BRITNEY LEMUS Patient #: [id number] SSN: DO B: 1960 Date of study: 01/22/2020 Page: Of Hemodynamic Procedure Report Patient Data Patient Demographics Procedure consent was obtained First Name: BRITNEY Gender: Male Last Name: MARIAH : 1960 [facility] Initial: MYRIAM Age: 59 year(s) Patient #: [id number] Race: Unknown Additional ID: [id number] Contact details [address]: [address] [place] [address] rd State: [place] City: [place] Zip code: [address] Past Medical History Allergies Allergen Reaction Date Comments Reported Amoxicillin 01/22/2020 Penicillins 01/22/2020 neosporin,rocephin,ambien,cyclosporin Admission Admission Data Admission Date: 01/22/2020 Admission Time: 10:22 Weight (lbs.): 190 Weight (kg.): 86.18 Procedure Procedure Types Cath Procedure Peripheral Cath Diagnostic Procedure 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 Peripheral Procedures Abd/Extremity Extremities Bilat Lower Extremity Procedure Description Procedure Date Procedure Date: 01/22/2020 Procedure Start Time: 14:09 Procedure Staff Name Function Andrea Sanchez MD Performing Physician Meera Vera RT Hotel Operation Manager Lara Saab RN Nurse MOHIT OCONNELL RT Scrub Procedure Data Cath Procedure Fluoroscopy Diagnostic fluoroscopy Total fluoroscopy Time: 0 time: 0 min min Diagnostic fluoroscopy Total fluoroscopy dose: 539 dose: 539 mGy mGy Contrast Material Contrast Material Type Amount (ml) Isovue 300 125 Entry Location Entry Primary Successful Side Size Upsize Upsize Entry Closure Succ essful Closure Location (Fr) 1 (Fr) 2 (Fr) Remarks Device Remarks Femoral Angio-VIP artery 6Fr Diagnostic catheters Device Type Used For End Catheter Placement Merit UHF Pigtail VESSEL SIZING 5Fr 65CM catheter ([id number]) Procedure Medications Medication Administration Route Dosage Heparin Flush Bag added to field 2 bags (1000units/500ml NS) Lidocaine 1% added to field 20 Versed I.V. 0.5 mg Fentanyl I.V. 25 mcg Versed I.V. 0.5 mg Fentanyl I.V. 25 mcg Hemodynamics Rest Heart Rate: 54 (bpm) Snapshots Pre Cath Intra NCS Post Cath Vital Signs Time Heart Resp SPO2 etCO2 NIBP (mmHg) Rhythm Pain Sedation Rate (ipm) (%) (mmHg) Status Level (bpm) 13:40:40 54 9 100 41.9 178/82(144) NSR 0 (11) 10(A) , No pain 13:45:08 55 7 100 43.3 166/82(139) NSR 0 (11) 10(A) , No pain 13:49:30 55 10 98 35.9 171/85(142) NSR 0 (11) 10(A) , No pain 13:53:51 55 14 97 43.3 171/99(138) NSR 0 (11) 10(A) , No pain 13:58:12 54 8 99 22.4 168/85(134) NSR 0 (11) 10(A) , No pain 14:02:37 53 10 96 20.9 168/81(139) NSR 0 (11) 10(A) , No pain 14:07:03 54 11 100 36.7 157/75(133) NSR 0 (11) 10(A) , No pain 14:11:27 57 11 100 38.9 160/83(125) NSR 0 (11) 10(A) , No pain 14:15:49 54 9 100 40.4 159/77(120) NSR 0 (11) 8(A) , No pain 14:20:12 54 11 100 41.9 147/77(112) NSR 0 (11) 8(A) , No pain 14:24:32 53 8 100 40.4 135/64(104) NSR 0 (11) 8(A) , No pain 14:28:48 52 10 100 29.9 140/68(106) NSR 0 (11) 8(A) , No pain 14:33:02 55 11 100 38.9 154/76(110) NSR 0 (11) 8(A) , No pain 14:37:22 52 8 100 38.1 152/77(112) NSR 0 (11) 8(A) , No pain 14:41:42 54 10 100 14.2 151/75(119) NSR 0 (11) 8(A) , No pain Medications Time Medication Route Dose Verified Delivered Reason Notes Effe ctiveness by by 14:13:23 Heparin Flush added 2 Andrea Mendez used for Bag to bags Sanchez Sanchez procedure (1000units/500ml field MD HOLT NS) 14:13:34 Lidocaine 1% added 20ml Andrea Mendez for local to vial Sanchez Sanchez anesthetic field MD HOLT 14:14:12 Versed I.V. 0.5 Andrea Bermudez for mg Sanchez Kaiser RN sedation 14:14:29 Fentanyl I.V. 25 Andrea Bermudez for mcg Sanchez Kaiser RN sedation 14:28:49 Versed I.V. 0.5 Andrea Bermudez for mg Sanchez Kaiser RN sedation 14:28:57 Fentanyl I.V. 25 Andrea Bermudez for mcg Sanchez Kaiser RN sedation Procedure Log Time Note 13:31:40 Patient Weight : 190 lbs 13:32:03 Time tracking: Regular hours (M-F 7:00 - 5:00) 13:32:16 Plan of Care:Hemodynamics will remain stable., Cardiac rhythm will remain stable., Comfort level will be maintained., Respiratory function will remain adequate., Patient/ family verbilizes understanding of procedure., Procedure tolerated without complication., Recovers from procedure without complications.. 13:32:24 Patient received from Outpatients to IR Alert and oriented. Tansferred to table in Supine position. 13:32:26 Signed procedure consent form obtained from patient. 13:32:32 H&P Date Dictated: 01/22/2020 Within 30 days and on chart., H&P Addendum completed by physician on day of procedure. (MUST COMPLETE FOR ALL OUTPATIENTS). 13:32:35 Pre-procedure instructions explained to patient. 13:32:35 Pre-op teaching completed and patient verbalized understanding. 13:32:37 Family in waiting room. 13:32:40 Patient NPO since Midnight. 13:37:04 Patient allergic to Amoxicillin 13:38:07 Patient allergic to Penicillinsneosporin,rocephin,ambien,cyclosporin 13:38:20 Is the patient allergic to Iodine/contrast media? No. 13:38:24 Is patient on blood thinner?Yes 13:38:27 Patient diabetic? No. 13:38:29 - 13:38:32 ----Pre-sedation anethsthesia assessment.---- 13:38:35 Previous problem with sedation/anesthesia? No ? 13:38:38 Snore? Yes 13:38:41 Sleep apnea? Yes 13:38:44 Deviated septum? No 13:38:46 Opens mouth fully? Yes 13:38:48 Sticks out tongue? Yes 13:38:52 Airway obstruction? No ? 13:38:55 Dentures? No ? 13:38:59 Pre procedure: right dorsailis pedis pulse Doppler 13:39:02 Pre procedure: left dorsailis pedis pulse Doppler 13:39:06 Pre procedure: right posterior tibial pulse Doppler 13:39:10 Pre procedure: left posterior tibial pulse Doppler 13:39:17 Left groin area was prepped with chlora-prep and draped in sterile fashion 13:39:19 - 13:39:23 ECG and BP/O2 sat monitors applied to patient. 13:39:24 Vital chart was started 13:39:26 Baseline sample Acquired. 13:39:28 Full Disclosure recording started 13:39:30 - 13:39:40 Use device set IR Diagnostic 13:39:41 Tegaderm 4 x 4 (1626W) opened to sterile field. 13:39:43 Sterile Angiographic Pack opened to sterile field. 13:39:44 Bag Decanter () opened to sterile field. 13:40:08 DOC .035 wire ([id number]) opened to sterile field. 13:40:09 PERCUTANEOUS ENTRY 19GA needle opened to sterile field. 13:40:22 - 13:40:31 Fire Safety Assessment: A--An alcohol-based skin anteseptic being used preoperatively., C--Open oxygen or nitrous oxide is being used. 13:41:08 5) <15 or on dialysis Very severe, or end stage kidney failure. 14:09:10 Physician arrived 14:09:11 Physician arrived 14:09:12 --------ALL STOP TIME OUT------ 14:09:13 Final Timeout: patient, procedure, and site verified with staff and physician. All members of the team are in agreement. 14:09:33 Procedure started. 14:09:47 Local anesthetic to left femerol artery with Lidocaine 1% by Andrea Sanchez MD.INITIAL ACCESS ONLY 14:13:23 Heparin Flush Bag (1000units/500ml NS) 2 bags added to field was administered by Andrea Sanchez MD; used for procedure; Verbal order read back and verified. 14:13:34 Lidocaine 1% 20ml vial added to field was administered by Andrea Sanchez MD; for local anesthetic; Verbal order read back and verified. 14:14:12 Versed 0.5 mg I.V. was administered by Lara Saab RN; for sedation; Verbal order read back and verified. 14:14:29 Fentanyl 25 mcg I.V. was administered by Lara Saab RN; for sedation ; Verbal order read back and verified. 14:15:50 A [facility] Pigtail VESSEL SIZING 5Fr 65CM catheter ([id number]) was advanced over the wire and used for . 14:16:06 SHEATH 5FR [place] ([id number]) opened to sterile field. 14:17:33 GLIDE WIRE ANGLE 180cm ([id number]) opened to sterile field. 14:17:33 TORQUE DEVICE PLASTIC .038 ( TD01) opened to sterile field. 14:28:49 Versed 0.5 mg I.V. was administered by Lara Saab RN; for sedation; Verbal order read back and verified. 14:28:57 Fentanyl 25 mcg I.V. was administered by Lara Saab RN; for sedation ; Verbal order read back and verified. 14:33:53 A sheath was inserted into the Femoral artery 14:33:53 Sheath removed intact; hemostasis achieved with Angio-VIP 6Fr to the Femoral artery. 14:33:59 Contrast amount:Isovue 300 125ml. 14:34:14 Procedure ended.(Physican Out) 14:34:28 Fluoroscopy time 00.00 minutes. 14:34:36 Fluoroscopy dose: 539 mGy 14:34:36 Flurop Dose total: 539 14:34:47 Procedure and supply charges have been captured, reviewed, submitted an d are correct. 14:35:39 Report given to Outpatients. 14:46:21 Vital chart was stopped Device Usage Item Name Manufacture Quantity Catalog Hospital Part Current Minimal Lot# / Number Charge Number Stock Stock Serial# Code Tegaderm 4 x 3M 1 [id number] 5 4 (1626W) Sterile Cardinal 1 [id number] 669156 879808 5 Angiographic Health Pack Bag Decanter Microtek 1 [id number] 94734 710951 5 () [employer] DOC .035 [employer] 1 [id number] 965134 651557 5 wire ([id number]) PERCUTANEOUS [employer] 1 [id number] 808635 129842 5 [id number] ENTRY 19GA needle Merit UHF Merit 1 [id number] 341251 628843 5 Pigtail Medical VESSEL SIZING 5Fr 65CM catheter ([id number]) SHEATH 5FR Terumo 1 [id number] 810264 855664 062773 5 [place] ([id number]) GLIDE WIRE Terumo 1 [id number] 689430 936302 991803 5 ANGLE 180cm ([id number]) TORQUE [place] 1 TD01 729660 978470 341239 5 DEVICE Scientific PLASTIC .038 ( TD01) Signature Audit Malone Stage Time Signature Unsigned Intra-Procedure 01/22/2020 Meera Vera 2:46:18 PM RT(R) [facility] [address] [place] [address]
[2020-01-22 11:18] LABS: ANION GAP 16.9 mmol/L (8-16); CALCIUM 9.7 mg/dL (8.5-10.1); CARBON DIOXIDE 24.8 mmol/L (21.0-32.0); CREATININE - SERUM 8.5 mg/dL (0.6-1.3); POTASSIUM - SERUM 4.7 mmol/L (3.5-5.1)
[2020-01-22 11:20] LABS: APTT 40.2 SECONDS (22.8-39.4); INR 1.37 (0.85-1.17); PROTIME 16.8 SECONDS (11.6-15.0)
[2020-01-22 11:29] LABS: BASOPHILS 0.3 % (0-2); HEMOGLOBIN 12.4 g/dL (13.5-17.5); IMMATURE GRANULOCYTES 0.3 % (0-5); LYMPHOCYTES 28.9 % (15-50); MCH 32.7 pg (26.0-34.0); MCHC 31.8 g/dL (31.0-37.0); MCV 102.9 fL (80.0-100.0); MEAN PLATELET VOLUME 10.3 fL (7.4-10.4); NEUTROPHILS 48.5 % (40-80); RBC 3.79 10x6/uL (4.20-6.10); RDW 15.4 % (11.5-14.5); WBC 3.8 10x3/uL (4.8-10.8)
[2020-01-22 11:30] LABS: PLATELET COUNT 79 10x3/uL (130-400)
[2020-01-22 12:08] LABS: PLATELET ESTIMATE DECREASED
[2020-01-22] MEDS ORDERED: LOVENOX80 MG/0.8 SC (12:20)
[2020-01-22 12:37] VITALS: BP 150/71; Ht 185.4 cm; Wt 86.4 kg
--- NOTE | 2020-01-22 16:55 | NUR ---
RIGHT FOREARM PIV DC'D WITH TIP INTACT. PATIENT DRESSING IN PERSONAL CLOTHING. 4592 DISCHARGE INSTRUCTIONS REVIEWED WITH PATIENT
== END 2020-01-22 17:15 | disposition home or self-care (01) ==
LOC: D.SP 10:22 → D.RAD 13:00 → D.SP 13:00
PROVIDERS: Specialist; ATTEND Internal Medicine Nephrology
DX: I70.201 Unspecified atherosclerosis of native arteries of extremities, right leg (principal)